=== PATIENT | female | born 1945 | race Caucasian/White ===

== ENCOUNTER 2016-11-13 07:25 | Inpatient (IN) ==
--- NOTE | 2016-11-12 20:25 | Discharge Summary ---
<Nica Whyte - Last Filed: 11/12/16 20:23> Date of Encounter: 11/12/16 - Discharge Diagnosis (1) Rotator cuff tear arthropathy of right shoulder Priority: Primary Status: Acute (2) DMII (diabetes mellitus, type 2) Priority: Secondary Status: Chronic Qualifiers: Diabetes mellitus complication status: with unspecified complications Diabetes mellitus usp insulin use: unspecified terminal press operator insulin use status Qualified Code(s): E11.8 - Type 2 diabetes mellitus with unspecified complications (3) HTN (hypertension) Priority: Secondary Status: Chronic Qualifiers: Hypertension type: essential hypertension Qualified Code(s): I10 - Essential (primary) hypertension (4) Hypothyroid Priority: Secondary Status: Chronic Qualifiers: Hypothyroidism type: unspecified Qualified Code(s): E03.9 - Hypothyroidism , unspecified - Discharge Medications Home Medications: Meclizine [Antivert] 25 mg PO TID #20 tablet 11/10/16 [Rx] OxyCODONE Immed Rel [Roxicodone 5 MG] 5 - 10 mg PO Q6HR PRN #40 tablet 11/12/16 [Rx] Aspirin 81 mg PO HS 11/13/16 [History] Calcium Carbonate/Vitamin D3 [Calcium 1,000 + D3 Caplet] 1 each PO HS 11/13/16 [ History] Cephalexin [Keflex] 500 mg PO QID 11/13/16 [History] Furosemide [Lasix] 20 mg PO DAILY 11/13/16 [History] Gabapentin 1,200 mg PO BID 11/13/16 [History] Levothyroxine Sodium 100 mcg PO DAILY 11/13/16 [History] Lisinopril 40 mg PO HS 11/13/16 [History] Metformin HCl 500 mg PO BID 11/13/16 [History] Multivitamin [One Daily Multivitamin] 1 each PO HS 11/13/16 [History] Omeprazole [PriLOSEC] 40 mg PO DAILY 11/13/16 [History] Sertraline [Zoloft] 50 mg PO DAILY 11/13/16 [History] Simvastatin 80 mg PO DAILY 11/13/16 [History] Zolpidem [Ambien] 10 mg PO HS PRN 11/13/16 [History] Allergies/Adverse Reactions: Allergies Sulfa (Sulfonamide Antibiotics) Adverse Reaction (Unknown, Verified 11/13/16 08: 42) See Comments patient states unknown childhood reaction Primary care physician: Zaki Brown, - Patient Status Disposition: Home, Self-Care Condition: Good - Discharge Instructions Follow Up With: Zaki Brown DO [Primary Care Provider] - 02/19/17 8:00 am Richard Quach MD [Partnered Physician] - 11/21/16 10:45 am - Hospital Course Hospital course: Ms. Goins is a 71 year old female - Time Spent with Patient Total time spent providing and/or coordinating discharge services: <Odin Andres - Last Filed: 11/14/16 06:24> Date of Encounter: 11/14/16 Time of Encounter: 06:23 - Discharge Diagnosis (1) Rotator cuff tear arthropathy of right shoulder Priority: Primary Status: Acute (2) DMII (diabetes mellitus, type 2) Priority: Secondary Status: Chronic Qualifiers: Diabetes mellitus complication status: with unspecified complications Diabetes mellitus usp insulin use: unspecified terminal press operator insulin use status Qualified Code(s): E11.8 - Type 2 diabetes mellitus with unspecified complications (3) HTN (hypertension) Priority: Secondary Status: Chronic Qualifiers: Hypertension type: essential hypertension Qualified Code(s): I10 - Essential (primary) hypertension (4) Hypothyroid Priority: Secondary Status: Chronic Qualifiers: Hypothyroidism type: unspecified Qualified Code(s): E03.9 - Hypothyroidism , unspecified (5) 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 Goins is a 71 year old female The patient had an uneventful postoperative course. They received antibiotics and physical therapy and were discharged in stable condition. There will follow -up in the office in 2 weeks. - Time Spent with Patient Total time spent providing and/or coordinating discharge services:
[2016-11-13] MEDS ORDERED: CeFAZolin Pre 2,000 MG/100 ML 2,000 MG/100 ML BAG IVPB ONE (07:54)
[2016-11-13] MEDS ORDERED: Albuterol 2.5 MG/3 ML NEBULIZER IH ONE (07:54)
[2016-11-13] MEDS ORDERED: Ringers Solution, Lactated 500 ML IVC SCH (08:00)
--- NOTE | 2016-11-13 08:11 | History & Physical Report ---
Date of Encounter: 11/13/16 Time of Encounter: 08:11 24 Hour HP Update - Instructions Instructions: If the History and Physical is less than 30 days old and was completed prior to A.M. admission and or procedure and has NOT been updated on calendar day of procedure please complete this update prior to performing procedure. - Update Patient reports changes in Medical Condition: No Changes in assessment/condition: No Changes in Medication: No Preop tests/diagnostics Reviewed: Yes Surgery Remains Indicated: Yes Consent for Planned Operative Procedure(s) Verified: Yes - Pre-Operative Checklist Preoperative Checklist Indicated: No Prophylactic Antibiotic Ordered: Yes Is VTE Prophylaxis Indicated?: Yes
[2016-11-13] MEDS ORDERED: Lidocaine -MPF 4% 5 ML AMPUL ONE (08:25)
[2016-11-13] MEDS ORDERED: *HR* FentaNYL (PF) 100 MCG/2 ML VIAL ONE (08:25)
[2016-11-13] MEDS ORDERED: *HR* Propofol 200 MG/20 ML VIAL IVP ONE (08:25)
[2016-11-13] MEDS ORDERED: Dexamethasone 4 MG/ML VIAL ONE (08:25)
[2016-11-13] MEDS ORDERED: Lidocaine -MPF 2% 2 ML VIAL ONE (08:25)
[2016-11-13] MEDS ORDERED: *HR* Succinylcholine 200 MG/10 ML VIAL IVP ONE (08:25)
[2016-11-13] MEDS ORDERED: Ondansetron 4 MG/2 ML VIAL ONE (08:25)
[2016-11-13] MEDS ORDERED: *HR* Midazolam HCl 2 MG/2 ML VIAL ONE (08:25)
[2016-11-13] MEDS ORDERED: *HR* Labetalol 100 MG/20 ML MDV IVP PRN (08:29)
[2016-11-13] MEDS ORDERED: *HR* Promethazine 25 MG/ML VIAL IVP PRN (08:29)
[2016-11-13] MEDS ORDERED: *HR* HYDROmorphone (PF) 1 MG/ML SYRINGE IVP PRN ×2 (08:29→11:33)
--- NOTE | 2016-11-13 09:02 | Anesthesia Evaluation PreOp ---
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: Other (Demyelinating Disease of Brain...visual disturbance) Other Medical History: Diabetes Type II (Well Controlled), Thyroid Anesthesia History: No Prior Anesthetic Complications : No Alcohol Use: none Drug use: none Medications and Allergies Meclizine [Antivert] 25 mg PO TID #20 tablet 11/10/16 [Rx] OxyCODONE Immed Rel [Roxicodone 5 MG] 5 - 10 mg PO Q6HR PRN #40 tablet 11/12/16 [Rx] Aspirin 81 mg PO HS 11/13/16 [History] Calcium Carbonate/Vitamin D3 [Calcium 1,000 + D3 Caplet] 1 each PO HS 11/13/16 [ History] Cephalexin [Keflex] 500 mg PO QID 11/13/16 [History] Furosemide [Lasix] 20 mg PO DAILY 11/13/16 [History] Gabapentin [Gabapentin] 1,200 mg PO BID 11/13/16 [History] Levothyroxine Sodium 100 mcg PO DAILY 11/13/16 [History] Lisinopril [Lisinopril] 40 mg PO HS 11/13/16 [History] Metformin HCl [Metformin HCl] 500 mg PO BID 11/13/16 [History] Multivitamin [One Daily Multivitamin] 1 each PO HS 11/13/16 [History] Omeprazole [PriLOSEC] 40 mg PO DAILY 11/13/16 [History] Sertraline [Zoloft] 50 mg PO DAILY 11/13/16 [History] Simvastatin [Simvastatin] 80 mg PO DAILY 11/13/16 [History] Zolpidem [Ambien] 10 mg PO HS PRN 11/13/16 [History] Allergies Sulfa (Sulfonamide Antibiotics) Adverse Reaction (Unknown, Verified 11/13/16 08: 42) See Comments patient states unknown childhood reaction - Meds/Allergy Pre-op Review Medications Reviewed: Yes Allergies Reviewed: Yes Beta Blockers on Current Med List: No Anesthesia Results - Imaging EKG: report reviewed (SR occ PVC) Anesthesia Exam Height: 5'2 Weight: 164 lbs NPO (# of Hours): MN - HEENT Pupil (Motor): Pupils equal, EOMI Mallampati: III Teeth: Normal Oral Opening: Less than or equal to 3 - DIGITAL MARKETING APPRENTICE LOC: Oriented DIGITAL MARKETING APPRENTICE Motor: Normal RUE, Normal LUE, Normal RLE, Normal LLE, Normal Face DIGITAL MARKETING APPRENTICE Sensory: Normal: RUE, LUE, RLE, LLE, Face - Cardiac Rhythm: Regular Murmur: None JVD: No Carotid Bruit: No - Pulmonary Breath Sounds: bilateral Clear Respiratory Effort: Symmetrical Anesthesia Assess/Plan ASA Score: 3 (HTN DM Demyelinating Disease of Brain) Anesthetic Plan: General, Regional Monitoring Plan: Standard Monitors Recovery Plan: PACU (Discussed GA and RA, agrees to proceed)
[2016-11-13] MEDS ORDERED: Bupivacaine/Clonidine Syringe 1 EACH SYRINGE ONE (09:16)
--- NOTE | 2016-11-13 09:33 | Anesthesia Procedures ---
Date of Encounter: 11/13/16 Time of Encounter: 09:20 Procedures: Anesthesia - Nerve Block Procedure Date: 11/13/16 Time: 09:20 Allergies/Adv Reactions: sulfa Pre-op Diagnosis: RIGHT SHOULDER ARTHRITIS Surgical Procedure: RIGHT TOTAL SHOULDER Checklist: Correct Patient Identifier, Correct procedure, History checked Correct side: Right Blood Thinner: No Monitor Applied: BP, Pulse Oximetry Supplemental Oxygen via Nasal Cannula (L/min): 2 Sedation: Versed (mg): 2 Sedation: Fentanyl (mcg): 100 Indication: Post Op Analgesia Pre-op Neuro Deficits: No Block Type: Supraclavicular (SUPERIFICAL CERVICAL PLEXUS + INTERCOSTAL BRACHIAL ) Catheter placed: No Sterile Technique: Yes Ultrasound used: Yes Anatomy identified: Yes Visual spread of Local: Yes Neuro Stimulation: Yes Nerve Stimulator Range: 0.2 - 0.4 mA Blood on Needle Aspiration: No Smooth Injection of Local: Yes Pain with Injection of Local: No Prep: Chlorhexadine Needle: 22 x 50 mm Stimuplex Local: 0.25% Bupivicaine w/Clonidine 20 mcg/cc Volume (cc): 40 Number of Attempts: 1 Vitals: Vital Signs - Last 8 Hours Temp Pulse Resp BP Pulse Ox 11/13/16 09:28 72 17 118/95 92 L 11/13/16 09:15 67 16 137/67 92 L 11/13/16 08:39 18 129/71 97 11/13/16 08:13 98.0 F 71 18 129/71 97 11/13/16 07:49 98.0 F 71 18 129/71 97 Intake and Output 11/12/16 11/13/16 11/13/16 23:59 07:59 15:59 Other: Weight 74.389 kg 74.389 kg Blood Glucose* 164 164 Patient Weight 11/13/16 23:59 Weight 74.389 kg Comments: PER DR. REDD REQUEST
--- NOTE | 2016-11-13 10:29 | Orthopedic Operative Note ---
Date of procedure: 11/13/16 Pre-op diagnosis: Right cuff tear arthropathy Post-op diagnosis: same Procedure: Procedure: Right Total Shoulder Replacment Reverse, biceps tenodesis Estimated blood loss: 100 cc Hardware:Arthrex medium glenoid baseplate, 2 4.5 screws. 1 6.5 screw, 39 noncentral glenosphere, 6 humeral stem, poly insert 3 Exam Under anesthesia: Full motion and no instability Procedural Notes: Grade 3 3 arthritic changes humeral head rotator cuff tear Operative procedure: The patient was brought to the operating room and placed on the operating room table. After general anesthesia was administered the operative shoulder was examined. Findings were noted. The patient was placed in the modified beachchair position. All pressure points were padded appropriately. And the head was stabilized in the neutral position. The operative extremity was prepped and draped in the sterile surgical fashion. The patient received IV antibiotics prior to skin incision. A standard deltopectoral approach was made to the operative shoulder. Incision was made to the skin and subcutaneous tissue,hemo stasis was obtained with Bovie cautery. Using careful blunt dissection the cephalic vein was identified and mobilized medially. The deltopectoral interval was developed and the clavipectoral fascia was incised. The subscap was released off the lesser tuberosity and tagged with #2 FiberWire suture. The humerus was dislocated patient noted to have tear supraspinatus tendon and grade 3 arthritic changes humeral head. The humeral cut was made along the anatomic neck. Anterior and posterior Bankart retractors were placed to expose the glenoid. The glenoid guide was seated and the centering hole was made. It was reamed with the appropriate reamer. The medium baseplate was seated and secured with (2) 4.5 screws and one 6.5 screw. The baseplate was irrigated and dried and the 39 central Glenosphere was seated and secured with the Cardona taper. The Cardona taper was tested and found to be secure the humerus was redislocated and prepared with the diaphyseal reamers, followed by a broaching process up to the appropriate size 6 in the patient's anatomic version. The metaphyseal reamer was then utilized. Trial reduction found the shoulder to be relocatable. Trial components were removed and drill holes were placed in the lesser tuberosity. They were filled with #5 FiberWire suture incorporating the biceps tendon. These sutures were used for a subscap repair and a biceps tenodesis. The appropriate 6 stem was impacted in place in the patient's anatomic version. Trial reduction found the shoulder to be relocatable and stable with the appropriate 3 Cecy. Trial component was removed and the real 3 Cecy was seated and secured the shoulder was reduced. The shoulder had excellent motion and excellent stability and no evidence of dislocation. The deep tissue was irrigated with pulse irrigation. The subscap was repaired incorporating the biceps tendon for biceps tenodesis and a subscap repair. The deltopectoral interval was closed with a running #1 PDS suture, subcutaneous tissue was irrigated and closed with 0 PDS suture, the skin was closed with Dermabond. The patient was placed in a sterile dressing, abduction brace and extubated. The patient was then transferred to the recovery room in stable condition. Anesthesia: DONNAA Surgeon: Odin Andres Condition: stable Disposition: PACU
--- NOTE | 2016-11-13 11:19 | Anesthesia Evaluation Post Op ---
Date of Encounter: 11/13/16 Time of Encounter: 11:19 - Vital Signs Vital Signs: Vital Signs/O2 Sat, Most Current Temp Pulse Resp BP Pulse Ox 97.9 F 66 16 120/57 97 11/13/16 11:15 11/13/16 11:15 11/13/16 11:15 11/13/16 11:15 11/13/16 11:15 - Lungs Lungs: Clear Ascult./Percussion - Airway Airway: Non-obstructed - Cardiovascular Regular Rate - Mental Status Mental Status: Alert & Oriented, Answers Appropriately - Pain Pain Scale: 0 Pain Scale used: Numeric (1 - 10) - Nausea Vomiting Nausea Vomiting: Not Present - Hydration Hydration: NPO, Has not voided - Discharge PostOp Status: Transfer Patient to floor
[2016-11-13 11:20] LABS: Hematocrit 36.5 % (35.3-44.9); Hemoglobin 11.8 g/dL (11.5-15.4)
[2016-11-13] MEDS ORDERED: Temazepam 15 MG CAPSULE PO PRN (11:33)
[2016-11-13] MEDS ORDERED: Ondansetron 4 MG/2 ML VIAL IVP PRN (11:33)
[2016-11-13] MEDS ORDERED: MOM Conc 10 ML UD.LIQ PO PRN (11:33)
[2016-11-13] MEDS ORDERED: Naloxone 0.4 MG/ML INJ IVP PRN (11:33)
[2016-11-13] MEDS ORDERED: *HR* OxyCODONE Immed Rel 5 MG TABLET PO PRN ×2 (11:33)
[2016-11-13] MEDS ORDERED: Ringers Solution, Lactated 1,000 ML IVC SCH (11:33)
[2016-11-13] MEDS ORDERED: Acetaminophen 325 MG TABLET PO PRN (11:33)
[2016-11-13] MEDS ORDERED: Albuterol Neb 1.25 MG/3 ML VIAL IH ONE (11:33)
[2016-11-13] MEDS ORDERED: *HR* Dextrose 50 % in Water (Syg) 50 ML SYRINGE IVP PRN (11:33)
[2016-11-13] MEDS ORDERED: Sennosides 8.6 MG TABLET PO PRN (11:33)
[2016-11-13] MEDS ORDERED: D5% in Water 1,000 ML IV PRN (11:33)
[2016-11-13] MEDS ORDERED: Dextrose Gel 15 GM PO PRN ×2 (11:33)
[2016-11-13] MEDS: Insulin LISPRO 300 UNITS/3 ML VIAL SQ SCH ×2 (12:24→17:57)
[2016-11-13] MEDS: *HR* Enoxaparin 30 MG/0.3 ML SYRINGE SQ SCH (17:57)
[2016-11-13] MEDS: ceFAZolin 2,000 MG in D5% in Water 100 ML IVPB SCH (17:57)
[2016-11-13] MEDS ORDERED: *HR* Enoxaparin 30 MG/0.3 ML SYRINGE SQ SCH (18:00)
[2016-11-13] MEDS: *HR* Metformin 500 MG TABLET PO SCH (20:50)
[2016-11-13] MEDS: Gabapentin 400 MG CAPSULE PO SCH (20:50)
[2016-11-13] MEDS ORDERED: Multivit/Ca/Min/Fe/FA 1 TAB TABLET PO SCH (21:00)
[2016-11-13] MEDS ORDERED: Insulin LISPRO 300 UNITS/3 ML VIAL SQ SCH (21:00)
[2016-11-13] MEDS ORDERED: Cholecalciferol (D-3) 1,000 UNIT TABLET PO SCH (21:00)
[2016-11-13] MEDS ORDERED: Aspirin 81 MG TAB.CHEW PO SCH (21:00)
[2016-11-13] MEDS ORDERED: Lisinopril 20 MG TABLET PO SCH (21:00)
[2016-11-14] MEDS: ceFAZolin 2,000 MG in D5% in Water 100 ML IVPB SCH (03:32)
[2016-11-14] MEDS: *HR* Enoxaparin 30 MG/0.3 ML SYRINGE SQ SCH (06:16)
[2016-11-14 06:18] LABS: Hematocrit 33.2 % (35.3-44.9); Hemoglobin 10.8 g/dL (11.5-15.4)
--- NOTE | 2016-11-14 06:25 | Orthopedics Progress Note ---
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 Qualified Code(s): E11.8 - Type 2 diabetes mellitus with unspecified complications (3) HTN (hypertension) Current Visit: Yes Status: Chronic Qualifiers: Hypertension type: essential hypertension Qualified Code(s): I10 - Essential (primary) hypertension (4) Hypothyroid Current Visit: Yes Status: Chronic Qualifiers: Hypothyroidism type: unspecified Qualified Code(s): E03.9 - Hypothyroidism , unspecified (5) 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 Afebrile vital signs stable. Operative extremity: Neurovascularly intact Dressing clean dry and intact Calves nontender Assessment and plan: Continue with postoperative care Discharge today Objective Vital signs: Vital Signs Temp Pulse Resp BP Pulse Ox 11/14/16 03:35 98 F 62 14 95/60 94 L 11/13/16 23:49 98.6 F 58 13 90/50 93 L 11/13/16 18:56 98 F 71 14 119/62 96 11/13/16 15:12 98.0 F 69 15 106/55 94 L 11/13/16 14:16 97.8 F 73 14 120/68 98 11/13/16 12:56 16 95 11/13/16 12:32 97.8 F 68 16 120/69 95 11/13/16 12:10 97.6 F 68 15 130/73 98 11/13/16 11:32 97.6 F 64 16 145/80 95 11/13/16 11:15 97.9 F 66 16 120/57 97 11/13/16 11:05 68 14 131/61 94 L 11/13/16 10:55 69 14 128/68 92 L 11/13/16 10:50 70 14 133/65 94 L 11/13/16 10:45 97.3 F L 77 12 133/78 95 11/13/16 09:38 70 16 101/55 95 11/13/16 09:28 72 17 118/95 92 L 11/13/16 09:15 67 16 137/67 92 L 11/13/16 08:39 18 129/71 97 11/13/16 08:13 98.0 F 71 18 129/71 97 11/13/16 07:49 98.0 F 71 18 129/71 97 Intake and Output 11/13/16 11/13/16 11/14/16 15:59 23:59 07:59 Intake Total 100 / 100 100 / 100 Output Total 400 / 400 Balance -300 / -300 100 / 100 Intake: IV Fluids 100 / 100 100 / 100 Ancef 2,000 MG In 100 / 100 Dextrose 5% 100 ML @ 200 mls/hr IVPB Q8H CINDY Rx#: [id number] Ancef Premix 2,000 MG/100 100 / 100 ML 2,000 mg In 100 ml @ 200 mls/hr IVPB PREOP ONE Rx#:[id number] Oral 0 / 0 Output: Urine 300 / 300 Estimated Blood Loss 100 / 100 Other: # Voids 1 1 Weight 74.389 kg Blood Glucose* 177 306 - Labs CBC & BMP: 11/14/16 05:29 Labs: Abnormal lab results Hgb 10.8 g/dL (11.5-15.4) L 11/14/16 05:29 Hct 33.2 % (35.3-44.9) L 11/14/16 05:29 POC Glucose 155 (58-89) H 11/13/16 10:51 - VTE Documentation of Mechanical Device: Venous foot pump, device Consult Discharge Plan - Plan Referrals: Zaki Brown DO [Primary Care Provider] - 02/19/17 8:00 am Richard Quach MD [Partnered Physician] - 11/21/16 10:45 am
[2016-11-14 07:16] VITALS: BP 103/59
[2016-11-14] MEDS: Insulin LISPRO 300 UNITS/3 ML VIAL SQ SCH (08:46)
[2016-11-14] MEDS: Gabapentin 400 MG CAPSULE PO SCH (08:47)
[2016-11-14] MEDS: *HR* Metformin 500 MG TABLET PO SCH (08:48)
[2016-11-14] MEDS ORDERED: Furosemide 20 MG TABLET PO SCH (09:00)
== END 2016-11-14 11:33 | disposition home or self-care (01) | DRG 483 ==
LOC: SAMDAY 07:25 → 3NENU 11:22
PROVIDERS: ADMIT Orthopaedic Surgery; ATTEND Orthopaedic Surgery

== ENCOUNTER 2017-04-17 15:00 | Inpatient (IN) ==
[2017-04-17 16:24] LABS: Basophils # 0.1 K/mcL (0.0-0.2); Basophils % 0.8 %; Eosinophils # 0.3 K/mcL (0.0-0.6); Eosinophils % 1.9 %; Hematocrit 46.7 % (35.3-44.9); Hemoglobin 15.6 g/dL (11.5-15.4); Immature Granulocytes % 0.4 % (0-4); Lymphocytes # 5.1 K/mcL (0.6-4.6); Lymphocytes % 32.4 %; Mean Corpuscular HGB Conc 33.4 g/dL (31.6-35.5); Mean Corpuscular Hemoglobin 30.6 pg (28.0-33.3); Mean Corpuscular Volume 91.6 fL (83.0-100.0); Mean Platelet Volume 10.6 fL (9.4-12.4); Monocytes # 1.1 K/mcL (0.0-1.3); Platelet Count 313 K/mcL (140-400); Red Cell Distribution Width 13.4 % (11.5-14.5); Segmented Neutrophils % 57.5 %
[2017-04-17 16:36] LABS: Albumin 4.2 g/dL (3.5-5.0); Albumin/Globulin Ratio 1.1 (1.1-2.2); Bilirubin,Total 0.5 mg/dL (0.2-1.2); Calcium 10.5 mg/dL (8.6-10.8); Globulin 3.9 g/dL (2.4-3.5); Potassium 5.4 mEq/L (3.5-4.5); Total Protein 8.1 g/dL (6.0-8.3)
[2017-04-17] MEDS ORDERED: 0.9 % Sodium Chloride 1,000 ML IVC ONE (17:40)
--- NOTE | 2017-04-17 17:40 | Emergency Department Note ---
Addendum entered and electronically signed by Juventino Gaona DO 04/17/17 19:58 : Troponin came back as elevated. Gave aspirin. EKG is NSR. No CP. EKG is normal. Will need trended. Original Note: Disposition Clinical Impression: Nausea vomiting and diarrhea, Hyperkalemia Acute renal failure Qualifiers: Acute renal failure type: unspecified Qualified Code(s): N17.9 - Acute kidney failure, unspecified Disposition: Admitted As Inpatient Condition: Fair General Adult HPI - General Chief complaint: ED Recheck/Abnormal Lab/Rx Stated complaint: PCP sent me Labs Time Seen by Provider: 04/17/17 17:11 Source: patient Mode of arrival: ambulatory Limitations: no limitations Nursing Notes Reviewed: Yes Vital Signs Reviewed: Yes - History of Present Illness HPI Narrative: 71-year-old female who reports 1 week of nausea vomiting and diarrhea. She reports that she vomits proximally 10 times a day and has a few episodes of diarrhea daily. She has not been able to eat or drink very much due to this. She does have some associated abdominal pain. No fever. The abdominal pain does not seem to be worsening but has remained constant. She went to see her primary care physician yesterday who ordered some basic lab work and called her today to come to the emergency department due to the lab results. She reports she did get a prescription for Zofran from her primary care physician and that did improve her nausea some. She does have a history of diabetes, hypertension , hypothyroidism. She has had a cholecystectomy and a tubal. She does take Lasix 20 daily for large from the swelling. She also takes lisinopril. In addition she takes Synthroid, Neurontin, Zoloft, Lipitor, Ambien, [place], aspirin , omeprazole. She reports that her vomitus whenever she has attempted to eat and sometimes it is bilious. She reports location of her abdominal pain is generalized. Radiation: non-radiation Pain Severity: severe Pain Scale: 8 Consistency: constant Improves with: nothing, movement Associated symptoms: Reports: denies other symptoms - Related Data Home Medications Medication Instructions Recorded Confirmed Aspirin 81 mg PO HS 11/13/16 04/17/17 Calcium Carbonate/Vitamin D3 1 each PO HS 11/13/16 04/17/17 [Calcium 1,000 + D3 Caplet] Furosemide [Lasix] 20 mg PO DAILY 11/13/16 04/17/17 Gabapentin 1,200 mg PO BID 11/13/16 04/17/17 Levothyroxine Sodium 100 mcg PO QAM 11/13/16 04/17/17 Lisinopril 40 mg PO HS 11/13/16 04/17/17 Metformin HCl 500 mg PO BID 11/13/16 04/17/17 Multivitamin [One Daily 1 each PO HS 11/13/16 04/17/17 Multivitamin] Omeprazole [PriLOSEC] 40 mg PO DAILY 11/13/16 04/17/17 Sertraline [Zoloft] 50 mg PO DAILY 11/13/16 04/17/17 Zolpidem [Ambien] 10 mg PO HS PRN 11/13/16 04/17/17 Atorvastatin Calcium [Lipitor] 20 mg PO HS 04/17/17 04/17/17 Ondansetron [Zofran] 8 mg PO TID PRN 04/17/17 04/17/17 Allergies Allergy/AdvReac Type Severity Reaction Status Date / Time ayana flavor Allergy Swelling Verified 04/17/17 15:40 of Lip/Tongue/Throat Sulfa (Sulfonamide AdvReac Unknown See Verified 11/13/16 08:42 Antibiotics) Comments All systems ED: reviewed and negative except as stated. Constitutional: Denies: fever Eyes: Denies: vision change ENT ED: Denies: throat pain Cardiovascular: Denies: chest pain Respiratory: Denies: cough Gastrointestinal: Reports: abdominal pain, nausea, vomiting, diarrhea. Denies: constipation, hematemesis, hematochezia Genitourinary: Denies: dysuria Musculoskeletal: Denies: back pain Integumentary: Denies: rash Neurological: Denies: headache Endocrine: Reports: fatigue Past Medical History - Past Medical History Medical history: Reports: diabetes, hyperlipidemia, hypertension, renal disease , thyroid disease, TIA Psychiatric history: Reports: no psych history - Social History Smoking Status: Current every day smoker Smokeless Tobacco Status: No Alcohol use: Reports: none Drug use: Reports: none Physical Exam - General Limitations: no limitations General appearance: alert - Head Head exam: atraumatic - Eye Eye exam: Present: normal appearance, PERRL, EOMI - ENT ENT exam: normal exam - Neck Neck exam: Present: normal inspection - Respiratory Respiratory exam: Present: normal lung sounds bilaterally. Absent: respiratory distress - Cardiovascular Cardiovascular exam: Present: regular rate, normal rhythm - Abdominal Exam Abdominal exam: Present: soft, tenderness (Generalized. She also does have pain in the right lower quadrant. No guarding or rebound) - Extremities Exam Extremities exam: Present: normal inspection - Back Exam Back exam: Present: normal inspection - Neurological Exam Neurological exam: Present: alert, oriented X3 - Skin Skin exam: Present: warm, dry Course Course Narrative: In reviewing her lab work she has an elevated creatinine and elevated potassium. Lab work was redrawn here and her creatinine has increased by 1. she is not currently complaining of any chest pain or shortness of breath. She has an elevated white blood cell count and elevated hemoglobin. This is likely secondary to hemoconcentration. We will start with a 2 L fluid bolus and starting maintenance fluids. We will also treat her nausea and he was CT scan of the belly. EKG shows normal sinus rhythm without peaks T waves or ST depression Accepted by chin Vital Signs Temperature 98.8 F 04/17/17 15:40 Pulse Rate 93 04/17/17 15:40 Respiratory Rate 20 04/17/17 15:40 Blood Pressure 121/73 04/17/17 15:40 O2 Sat by Pulse Oximetry 96 04/17/17 15:40 Temperature 98.8 F 04/17/17 15:40 Pulse Rate 83 04/17/17 19:45 Respiratory Rate 18 04/17/17 20:26 Blood Pressure 159/72 04/17/17 20:26 O2 Sat by Pulse Oximetry 96 04/17/17 19:45 Oxygen Delivery Oxygen Delivery Room Air Medical Decision Making - Medical Records Medical records reviewed: Yes I reviewed the patient's medical records. - Lab Data Lab results reviewed: Yes I reviewed the patient's lab results. Result diagrams: 04/17/17 16:10 04/17/17 16:10 Lab Results 04/17/17 04/17/17 04/17/17 Range/Units 16:10 16:10 16:10 WBC 15.7 H (4.3-11.1) K/mcL RBC 5.10 H (3.82-4.97) M/mcL Hgb 15.6 H (11.5-15.4) g/dL Hct 46.7 H (35.3-44.9) % MCV 91.6 (83.0-100.0) fL MCH 30.6 (28.0-33.3) pg MCHC 33.4 (31.6-35.5) g/dL RDW 13.4 (11.5-14.5) % Plt Count 313 (140-400) K/mcL MPV 10.6 (9.4-12.4) fL Immature Gran % 0.4 (0-4) % Seg Neutrophils % 57.5 % Lymphocytes % 32.4 % Monocytes % 7.0 % Eosinophils % 1.9 % Basophils % 0.8 % Neutrophils # 9.0 H (1.6-8.9) K/mcL Lymphocytes # 5.1 H (0.6-4.6) K/mcL Monocytes # 1.1 (0.0-1.3) K/mcL Eosinophils # 0.3 (0.0-0.6) K/mcL Basophils # 0.1 (0.0-0.2) K/mcL Sodium 136 (136-145) mEq/L Potassium 5.4 H (3.5-4.5) mEq/L Chloride 105 (98-109) mEq/L Carbon Dioxide 19 (19-29) mEq/L BUN 30 H (7-20) mg/dL Creatinine 3.27 H (0.57-1.11) mg/dL Est GFR ( Amer) 17 L (> 60) Est GFR (Non-Af Amer) 14 L (> 60) BUN/Creatinine Ratio 9 (6-26) Glucose 121 H (70-99) mg/dL Calculated Osmolality 289 (280-300) Calcium 10.5 (8.6-10.8) mg/dL Total Bilirubin 0.5 (0.2-1.2) mg/dL AST 29 (5-34) Units/L ALT 21 (0-55) Units/L Alkaline Phosphatase 105 (38-126) Units/L Troponin I 0.14 H* (0-0.03) ng/mL Serum Total Protein 8.1 (6.0-8.3) g/dL Albumin 4.2 (3.5-5.0) g/dL Globulin 3.9 H (2.4-3.5) g/dL Albumin/Globulin Ratio 1.1 (1.1-2.2) Amylase 89 (25-125) Units/L Lipase 89 H (8-78) Units/L Urine Color (Yellow) Urine Clarity (Clear) Urine pH (5.0-8.0) pH Units Ur Specific [place] (1.010-1.025) Urine Protein (Neg-Trace) mg/dL Urine Glucose (UA) (Normal) mg/dL Urine Ketones (Negative) mg/dL Urine Blood (Negative) Urine Nitrite (Negative) Urine Bilirubin (Negative) Urine Urobilinogen (Normal) mg/dL Ur Leukocyte Esterase (Negative) Urine Microscopic RBC (0-3) per hpf Urine Microscopic WBC (0-3) per hpf Ur Squamous Epith Cells (None-Few) per lpf Urine Bacteria (None-Few) per hpf Hyaline Casts (None-Few) per lpf Ur Culture Indicated? (NO) 04/17/17 Range/Units 19:47 WBC (4.3-11.1) K/mcL RBC (3.82-4.97) M/mcL Hgb (11.5-15.4) g/dL Hct (35.3-44.9) % MCV (83.0-100.0) fL MCH (28.0-33.3) pg MCHC (31.6-35.5) g/dL RDW (11.5-14.5) % Plt Count (140-400) K/mcL MPV (9.4-12.4) fL Immature Gran % (0-4) % Seg Neutrophils % % Lymphocytes % % Monocytes % % Eosinophils % % Basophils % % Neutrophils # (1.6-8.9) K/mcL Lymphocytes # (0.6-4.6) K/mcL Monocytes # (0.0-1.3) K/mcL Eosinophils # (0.0-0.6) K/mcL Basophils # (0.0-0.2) K/mcL Sodium (136-145) mEq/L Potassium (3.5-4.5) mEq/L Chloride (98-109) mEq/L Carbon Dioxide (19-29) mEq/L BUN (7-20) mg/dL Creatinine (0.57-1.11) mg/dL Est GFR ( Amer) (> 60) Est GFR (Non-Af Amer) (> 60) BUN/Creatinine Ratio (6-26) Glucose (70-99) mg/dL Calculated Osmolality (280-300) Calcium (8.6-10.8) mg/dL Total Bilirubin (0.2-1.2) mg/dL AST (5-34) Units/L ALT (0-55) Units/L Alkaline Phosphatase (38-126) Units/L Troponin I (0-0.03) ng/mL Serum Total Protein (6.0-8.3) g/dL Albumin (3.5-5.0) g/dL Globulin (2.4-3.5) g/dL Albumin/Globulin Ratio (1.1-2.2) Amylase (25-125) Units/L Lipase (8-78) Units/L Urine Color Yellow (Yellow) Urine Clarity Cloudy A (Clear) Urine pH 5.5 (5.0-8.0) pH Units Ur Specific [place] 1.013 (1.010-1.025) Urine Protein 30 H (Neg-Trace) mg/dL Urine Glucose (UA) Normal (Normal) mg/dL Urine Ketones Negative (Negative) mg/dL Urine Blood Negative (Negative) Urine Nitrite Negative (Negative) Urine Bilirubin Negative (Negative) Urine Urobilinogen Normal (Normal) mg/dL Ur Leukocyte Esterase Trace H (Negative) Urine Microscopic RBC 0-3 (0-3) per hpf Urine Microscopic WBC 5-15 H (0-3) per hpf Ur Squamous Epith Cells Many H (None-Few) per lpf Urine Bacteria None Seen (None-Few) per hpf Hyaline Casts Moderate H (None-Few) per lpf Ur Culture Indicated? YES A (NO) - Radiology Data Radiology results reviewed: Yes I reviewed the patient's radiology results. - EKG Data EKG #1 EKG attestation: Yes I reviewed and interpreted this EKG. EKG shows normal: sinus rhythm Rate: normal Rhythm: NSR [place]/QRS: normal Interpretation: no acute changes Attestation Statement - Attestation Attestation: I examined this patient and my medical decision-making was reviewed with the RN CARDIOVASCULAR ICU/PA/Advanced Practice Nurse/Resident Physician. I agree with the documented findings, disposition and treatment plan as described except to the extent set forth below. 8-year-old female presents with concern for acute kidney injury. She does have mild hyperkalemia. Etiology of kidney failure is unclear at this time however CT scan shows a nonobstructing examination. Plan to Mr. IV fluids, will obtain cardiac biomarkers to rule out cardiac event. EKG shows normal sinus rhythm without ST segment changes. Cardiac biomarkers are found to be mildly elevated, I would try and these to further evaluate possible ACS. With effort toxic medications at this time including lisinopril and metformin. Patient will be admitted for evaluation of acute kidney injury.
[2017-04-17] MEDS ORDERED: Ondansetron 4 MG/2 ML VIAL IVP ONE (17:44)
[2017-04-17] MEDS: 0.9 % Sodium Chloride 1,000 ML IVC SCH (18:00)
[2017-04-17] MEDS ORDERED: *HR* Promethazine 25 MG/ML VIAL IM ONE (19:50)
[2017-04-17 19:55] LABS: Bilirubin,Urine Negative (Negative); Blood,Urine Negative (Negative); Clarity,Urine Cloudy (Clear); Color,Urine Yellow (Yellow); Glucose,Urine (UA) Normal (Normal); Ketones,Urine Negative (Negative); Leukocyte Esterase,Urine Trace (Negative); Nitrite,Urine Negative (Negative); PH,Urine 5.5 pH Units (5.0-8.0); Protein,Urine 30 mg/dL (Neg-Trace); Specific Gravity,Urine 1.013 (1.010-1.025); Urobilinogen,Urine Normal (Normal)
[2017-04-17 19:58] LABS: Bacteria,Urine None Seen per hpf (None-Few); Hyaline Casts,Urine Moderate per lpf (None-Few); RBC,Urine 0-3 per hpf (0-3); Squamous Epithelial Cell,Urine Many per lpf (None-Few)
[2017-04-17] MEDS ORDERED: Naloxone 0.4 MG/ML INJ IVP PRN (22:00)
[2017-04-17] MEDS ORDERED: *HR* Promethazine 25 MG/ML VIAL IVP PRN (22:00)
[2017-04-17] MEDS ORDERED: Ondansetron 4 MG/2 ML VIAL IVP PRN (22:00)
[2017-04-17] MEDS ORDERED: D5% in Water 1,000 ML IVC PRN (22:50)
[2017-04-17] MEDS ORDERED: *HR* Dextrose 50 % in Water (Syg) 50 ML SYRINGE IVP PRN (22:50)
[2017-04-17] MEDS ORDERED: Dextrose Gel 15 GM PO PRN ×2 (22:50)
[2017-04-17] MEDS: Pantoprazole 40 MG VIAL IVP SCH (22:53)
[2017-04-17] MEDS: *HR* Heparin 5,000 UNIT/ML VIAL SQ SCH (22:53)
[2017-04-17] MEDS ORDERED: Gabapentin 400 MG CAPSULE PO SCH (23:00)
--- NOTE | 2017-04-17 23:02 | Internal Med History&Physical ---
Date of Encounter: 04/17/17 Time of Encounter: 22:54 Assessment and Plan (1) Acute renal failure Current visit: Yes Status: Acute Creatinine of 3.27 up from baseline of 0.87 previously. Patient's creatinine was 2.39 yesterday for outpatient labs drawn at PCP's office. She reports N/V/ D on and off for last 2 weeks, with poor oral intake. WANDA likely secondary to dehydration. UA showed hyaline casts, not concerning for infection. CT Abd/ pelvis showed no acute finding in abdomen or pelvis, non-obstructing 1mm Left renal stone. Will hold lasix and lisinopril. Avoid NSAIDs. 1L bolus given in ED followed by 0.9NS at 125mL/hr. Retroperitoneal ultrasound ordered. Check chemistry daily. Qualifiers: Acute renal failure type: unspecified Qualified Code(s): N17.9 - Acute kidney failure, unspecified (2) Nausea vomiting and diarrhea Current visit: Yes Status: Acute Patient reports N/V/D on and off for 2 weeks. Poor oral intake. CT abd/pelvis showed no acute finding in abdomen or pelvis. WBC elevated to 15.7, with elevations in H/H looking like hemoconcentration from dehydration. IV fluids 0.9NS at 125mL/hr. Zofran PRN for nausea. Clear liquid diet. Stool GI panel and culture. (3) Elevated troponin Current visit: Yes Status: Acute Initial troponin elevated to 0.14. EKG without ischemic changes and patient denies any current chest pain. She does report occasional "twinge" on left side at rest lasting for less than 1 minute, not consistent with ACS. Repeat troponin trended down to 0.09. Continuous clock maker. Serial troponins for trend. (4) DMII (diabetes mellitus, type 2) Current visit: Yes Status: Chronic Hold Metformin check Hgb A1c Check blood sugars Q6hr Sliding scale correction dose Q6 hr hypoglycemic protocol. Qualifiers: Diabetes mellitus complication status: with unspecified complications Diabetes mellitus [employer] insulin use: without [employer] use Qualified Code( s): E11.8 - Type 2 diabetes mellitus with unspecified complications (5) HTN (hypertension) Current visit: Yes Status: Chronic Holding lisinopril and lasix due to WANDA. Hydralazine 10mg IVP Q6hr PRN for SBP > 160 or DBP > 100. Qualifiers: Hypertension type: essential hypertension Qualified Code(s): I10 - Essential (primary) hypertension (6) Hyperkalemia Current visit: Yes Status: Acute potassium of 5.4. Hydrating with 1L fluid bolus in ED followed by 0.9NS at 125mL/hr. Recheck chemistry in the morning. Continuous clock maker. (7) DVT prophylaxis Current visit: Yes Status: Acute Anti-embolic stockings Heparin 5,000u SQ TID Internal Medicine - H&P: HPI Chief complaint: N/V/D WANDA Admitted From: Emergency Dept Plans for Post Hospital Care: Home History of present illness: Ms. Goins is a 71 year old female with hypertension, type 2 diabetes, hypothyroid, presented to the emergency department today with complaints of nausea vomiting and diarrhea, and acute kidney injury seen on outpatient labs at her PCP yesterday. Patient reports that approximately 2 weeks ago she developed some nausea vomiting and diarrhea that lasted 3-4 days. She reports she felt better and return to work for approximately 3 days when her symptoms returned. She has had consistent nausea vomiting and diarrhea for the last 1 week. She is had poor appetite and has not had much oral intake. She reports she started to take in some water and 7-Up, without much success. She reports occasional lightheadedness. She reports occasional brief left-sided chest pain , which comes on suddenly at rest and lasts. Briefly. She reports occasional shortness of breath. She reports abdominal pain, which is located periumbilical and on her right side. She reports subjective fever, and chills. Evaluation in the emergency department revealed elevated white blood cell count of 15.7, elevated hemoglobin and hematocrit. BUN and creatinine were elevated at 30 and 3.27 respectively, indicating acute kidney injury and off from her baseline of 0.87. Potassium was also elevated at 5.4. Troponin was elevated at 0.14. Patient denies any current chest pain, and EKG showed no ischemic changes. CT of the abdomen and pelvis shows no acute finding in abdomen or pelvis, nonobstructing 1 mm left renal stone. He really was not concerning for infection, but this showed hyaline casts. Patient was given 1 L of fluid bolus and started on maintenance fluids of 0.9 at 125. On exam, patient alert and oriented, in no acute distress. Heart had regular rate and rhythm, lungs are clear bilaterally to auscultation. Abdomen was diffusely tender to palpation. No peripheral edema. Past Med Surg Social Fam HX - Past Medical History Medical history: diabetes, hyperlipidemia, hypertension, renal disease, thyroid disease, TIA Psychiatric history: depression - Past Surgical History Surgical History: cholecystectomy, orthopedic, other (shoulder) - Social History Smoking Status: Current every day smoker Packs per day: 0.5 Smokeless Tobacco Status: No Alcohol use: none Drug use: none - Family History Father Living Status: Hx Family Neurologic Disorders: Yes (aneurysm , stroke) Mother Living Status: Hx Family Respiratory Disorders: Yes (TB) Hx Family Medical Disorders: Yes (DVT) Sister Living Status: Still Living Hx Family Genitourinary Disorders: Yes (CKD) Internal Medicine - H&P: Meds Aspirin 81 mg PO HS 11/13/16 [History] Calcium Carbonate/Vitamin D3 [Calcium 1,000 + D3 Caplet] 1 each PO HS 11/13/16 [ History] Furosemide [Lasix] 20 mg PO DAILY 11/13/16 [History] Gabapentin 1,200 mg PO BID 11/13/16 [History] Levothyroxine Sodium 100 mcg PO QAM 11/13/16 [History] Lisinopril 40 mg PO HS 11/13/16 [History] Metformin HCl 500 mg PO BID 11/13/16 [History] Multivitamin [One Daily Multivitamin] 1 each PO HS 11/13/16 [History] Omeprazole [PriLOSEC] 40 mg PO DAILY 11/13/16 [History] Sertraline [Zoloft] 50 mg PO DAILY 11/13/16 [History] Zolpidem [Ambien] 10 mg PO HS PRN 11/13/16 [History] Atorvastatin Calcium [Lipitor] 20 mg PO HS 04/17/17 [History] Ondansetron [Zofran] 8 mg PO TID PRN 04/17/17 [History] Allergies ayana flavor Allergy (Verified 04/17/17 15:40) Swelling of Lip/Tongue/Throat Sulfa (Sulfonamide Antibiotics) Adverse Reaction (Unknown, Verified 11/13/16 08: 42) See Comments patient states unknown childhood reaction All Systems PM: A 10-system review of systems was performed and is negative for pertinent findings except as documented above in the HPI. - Constitutional Constitutional: anorexia, chills, no fever(s), no night sweats - EENT Eyes: no change in vision, no discharge, no pain, no photophobia Ears: no ear discharge, no ear pain, no tinnitus Nose, mouth and throat: no dysphagia, no nasal discharge, no neck pain, no sore throat - Cardiovascular Cardiovascular ROS IM: chest pain (breif, occasional), dyspnea (occasional), lightheadedness, palpitations, no diaphoresis, no syncope - Respiratory Respiratory: dyspnea, no cough, no wheezing, no excessive phlegm production - Gastrointestinal Gastrointestinal: abdominal pain, diarrhea, nausea, vomiting, no hematemesis, no hematochezia, no melena - Genitourinary Genitourinary: no change in urinary stream, no dysuria, no flank pain, no hematuria - Musculoskeletal Musculoskeletal ROS IM: no numbness, no tingling - Integumentary Integumentary IM: no rash, no unusual bruising - Neurological Neurological ROS: no confusion, no convulsions, no focal weakness, no numbness, no tingling, no tremor(s) - Hematologic/Lymphatic Hematologic/Lymphatic: no easy bruising - Constitutional Vitals: Temp Pulse Resp BP Pulse Ox 97.6 F 81 17 135/81 98 04/17/17 20:40 04/17/17 20:40 04/17/17 20:40 04/17/17 20:40 04/17/17 21:33 General appearance: Present: A&O X 3, pleasant, no acute distress - Head Head exam: Present: atraumatic, normocephalic - Eye Eye exam: Present: PERRL, conjuntiva pink, sclera anicteric Pupils: Present: PERRL - ENT ENT exam: Present: mucous membranes dry - Neck Neck exam general surgery: Present: supple, trachea midline. Absent: lymphadenopathy - Respiratory Respiratory exam: Present: CTAB. Absent: accessory muscle use, rales, rhonchi, wheezes - Cardiovascular Cardiovascular exam: Present: RRR, +S1, +S2. Absent: diastolic murmur, gallop, rubs, systolic murmur - GI/Abdominal GI/Abdominal exam: Present: normal bowel sounds, soft, tenderness, no peritoneal signs. Absent: distended - Extremities Exam Extremities exam: Present: warm, radial pulses palpable and symetrical. Absent : calf tenderness, cyanotic, pedal edema - Neurological Exam Neurological exam: Present: CN II-XII intact, oriented X3, no focal deficits. Absent: facial droop, speech deficit - Skin Skin exam: Present: dry, intact Internal Med - H&P Results - Labs CBC & Chem 7: 04/17/17 16:10 04/17/17 16:10 Labs: All Lab Results (24 Hours) 04/17/17 04/17/17 04/17/17 Range/Units 16:10 16:10 16:10 WBC 15.7 H (4.3-11.1) K/mcL RBC 5.10 H (3.82-4.97) M/mcL Hgb 15.6 H (11.5-15.4) g/dL Hct 46.7 H (35.3-44.9) % MCV 91.6 (83.0-100.0) fL MCH 30.6 (28.0-33.3) pg MCHC 33.4 (31.6-35.5) g/dL RDW 13.4 (11.5-14.5) % Plt Count 313 (140-400) K/mcL MPV 10.6 (9.4-12.4) fL Immature Gran % 0.4 (0-4) % Seg Neutrophils % 57.5 % Lymphocytes % 32.4 % Monocytes % 7.0 % Eosinophils % 1.9 % Basophils % 0.8 % Neutrophils # 9.0 H (1.6-8.9) K/mcL Lymphocytes # 5.1 H (0.6-4.6) K/mcL Monocytes # 1.1 (0.0-1.3) K/mcL Eosinophils # 0.3 (0.0-0.6) K/mcL Basophils # 0.1 (0.0-0.2) K/mcL Sodium 136 (136-145) mEq/L Potassium 5.4 H (3.5-4.5) mEq/L Chloride 105 (98-109) mEq/L Carbon Dioxide 19 (19-29) mEq/L BUN 30 H (7-20) mg/dL Creatinine 3.27 H (0.57-1.11) mg/dL Est GFR ( Amer) 17 L (> 60) Est GFR (Non-Af Amer) 14 L (> 60) BUN/Creatinine Ratio 9 (6-26) Glucose 121 H (70-99) mg/dL POC Glucose (58-89) Calculated Osmolality 289 (280-300) Calcium 10.5 (8.6-10.8) mg/dL Total Bilirubin 0.5 (0.2-1.2) mg/dL AST 29 (5-34) Units/L ALT 21 (0-55) Units/L Alkaline Phosphatase 105 (38-126) Units/L Troponin I 0.14 H* (0-0.03) ng/mL Serum Total Protein 8.1 (6.0-8.3) g/dL Albumin 4.2 (3.5-5.0) g/dL Globulin 3.9 H (2.4-3.5) g/dL Albumin/Globulin Ratio 1.1 (1.1-2.2) Amylase 89 (25-125) Units/L Lipase 89 H (8-78) Units/L Urine Color (Yellow) Urine Clarity (Clear) Urine pH (5.0-8.0) pH Units Ur Specific [place] (1.010-1.025) Urine Protein (Neg-Trace) mg/dL Urine Glucose (UA) (Normal) mg/dL Urine Ketones (Negative) mg/dL Urine Blood (Negative) Urine Nitrite (Negative) Urine Bilirubin (Negative) Urine Urobilinogen (Normal) mg/dL Ur Leukocyte Esterase (Negative) Urine Microscopic RBC (0-3) per hpf Urine Microscopic WBC (0-3) per hpf Ur Squamous Epith Cells (None-Few) per lpf Urine Bacteria (None-Few) per hpf Hyaline Casts (None-Few) per lpf Ur Culture Indicated? (NO) 04/17/17 04/17/17 04/17/17 Range/Units 19:47 21:03 22:15 WBC (4.3-11.1) K/mcL RBC (3.82-4.97) M/mcL Hgb (11.5-15.4) g/dL Hct (35.3-44.9) % MCV (83.0-100.0) fL MCH (28.0-33.3) pg MCHC (31.6-35.5) g/dL RDW (11.5-14.5) % Plt Count (140-400) K/mcL MPV (9.4-12.4) fL Immature Gran % (0-4) % Seg Neutrophils % % Lymphocytes % % Monocytes % % Eosinophils % % Basophils % % Neutrophils # (1.6-8.9) K/mcL Lymphocytes # (0.6-4.6) K/mcL Monocytes # (0.0-1.3) K/mcL Eosinophils # (0.0-0.6) K/mcL Basophils # (0.0-0.2) K/mcL Sodium (136-145) mEq/L Potassium (3.5-4.5) mEq/L Chloride (98-109) mEq/L Carbon Dioxide (19-29) mEq/L BUN (7-20) mg/dL Creatinine (0.57-1.11) mg/dL Est GFR ( Amer) (> 60) Est GFR (Non-Af Amer) (> 60) BUN/Creatinine Ratio (6-26) Glucose (70-99) mg/dL POC Glucose 109 H (58-89) Calculated Osmolality (280-300) Calcium (8.6-10.8) mg/dL Total Bilirubin (0.2-1.2) mg/dL AST (5-34) Units/L ALT (0-55) Units/L Alkaline Phosphatase (38-126) Units/L Troponin I 0.09 H* (0-0.03) ng/mL Serum Total Protein (6.0-8.3) g/dL Albumin (3.5-5.0) g/dL Globulin (2.4-3.5) g/dL Albumin/Globulin Ratio (1.1-2.2) Amylase (25-125) Units/L Lipase (8-78) Units/L Urine Color Yellow (Yellow) Urine Clarity Cloudy A (Clear) Urine pH 5.5 (5.0-8.0) pH Units Ur Specific [place] 1.013 (1.010-1.025) Urine Protein 30 H (Neg-Trace) mg/dL Urine Glucose (UA) Normal (Normal) mg/dL Urine Ketones Negative (Negative) mg/dL Urine Blood Negative (Negative) Urine Nitrite Negative (Negative) Urine Bilirubin Negative (Negative) Urine Urobilinogen Normal (Normal) mg/dL Ur Leukocyte Esterase Trace H (Negative) Urine Microscopic RBC 0-3 (0-3) per hpf Urine Microscopic WBC 5-15 H (0-3) per hpf Ur Squamous Epith Cells Many H (None-Few) per lpf Urine Bacteria None Seen (None-Few) per hpf Hyaline Casts Moderate H (None-Few) per lpf Ur Culture Indicated? YES A (NO) - Diagnostic Studies Chest x-ray Additional comments: Chest X-Ray 04/17/17 15:45 IMPRESSION: No acute cardiac or pulmonary disease. D/ / Dougie Man MD / Dougie Man MD Interpreting Provider: Dougie Man MD CT scan - abdomen Additional comments: Abdomen/Pelvis CT 04/17/17 17:37 IMPRESSION: 1. No acute finding in the abdomen or pelvis to account for patient's abdominal pain. 2. Status post cholecystectomy. 3. Nonobstructing 1 mm left renal stone. D/ / 04/17/2017 18:13:18 Yang Ndiaye MD / mary alice Interpreting Provider: Yang Ndiaye MD
[2017-04-17 23:13] LABS: Hemoglobin A1C 7.6 %
[2017-04-17] MEDS: Gabapentin 300 MG CAPSULE PO SCH (23:24)
[2017-04-18] MEDS ORDERED: Insulin LISPRO 300 UNITS/3 ML VIAL SQ SCH
[2017-04-18] MEDS: 0.9 % Sodium Chloride 1,000 ML IVC SCH ×2 (04:19→09:27)
[2017-04-18 04:45] LABS: Potassium 5.1 mEq/L (3.5-4.5)
[2017-04-18 04:47] LABS: Calcium 8.3 mg/dL (8.6-10.8); Hematocrit 36.1 % (35.3-44.9); Immature Granulocytes % 0.4 % (0-4); Mean Corpuscular HGB Conc 32.7 g/dL (31.6-35.5); Red Cell Distribution Width 13.6 % (11.5-14.5)
[2017-04-18 04:54] LABS: Basophils # 0.1 K/mcL (0.0-0.2); Basophils % 0.6 %; Eosinophils # 0.3 K/mcL (0.0-0.6); Eosinophils % 3.2 %; Hemoglobin 11.8 g/dL (11.5-15.4); Immature Platelets 5.2 % (1.1-6.1); Lymphocytes # 4.3 K/mcL (0.6-4.6); Lymphocytes % 45.7 %; Mean Corpuscular Hemoglobin 30.6 pg (28.0-33.3); Mean Corpuscular Volume 93.8 fL (83.0-100.0); Mean Platelet Volume 10.9 fL (9.4-12.4); Monocytes # 0.6 K/mcL (0.0-1.3); Monocytes % 6.2 %; Neutrophils # 4.1 K/mcL (1.6-8.9); Platelet Count 222 K/mcL (140-400); Red Blood Count 3.85 M/mcL (3.82-4.97); Segmented Neutrophils % 43.9 %
--- NOTE | 2017-04-18 08:07 | Internal Med Progress Note ---
<Farhat Millan - Last Filed: 04/18/17 09:16> Date of Encounter: 04/18/17 Time of Encounter: 08:06 - Assessment and plan (1) Acute renal failure Current Visit: Yes Status: Acute Assessment and plan: Improving. Creatinine of 3.27 today (baseline of 0.87 previously). WANDA likely secondary to dehydration from nausea, vomiting, and diarrhea. UA showed hyaline casts, not concerning for infection. CT Abd/pelvis showed no acute finding in abdomen or pelvis, non-obstructing 1mm Left renal stone. Will hold lasix and lisinopril. Avoid NSAIDs. Continue NS at 125mL/hr. Retroperitoneal ultrasound pending. Qualifiers: Acute renal failure type: unspecified Qualified Code(s): N17.9 - Acute kidney failure, unspecified (2) Nausea vomiting and diarrhea Current Visit: Yes Status: Acute Assessment and plan: Likely gastroenteritis. Continue Zofran when necessary. Patient tolerating clear liquid diet. (3) DMII (diabetes mellitus, type 2) Current Visit: Yes Status: Chronic Assessment and plan: Continue sliding-scale insulin Qualifiers: Diabetes mellitus complication status: with unspecified complications Diabetes mellitus long term acute care registered nurse insulin use: without long term acute care registered nurse use Qualified Code( s): E11.8 - Type 2 diabetes mellitus with unspecified complications (4) HTN (hypertension) Current Visit: Yes Status: Chronic Assessment and plan: Hold Lasix and lisinopril secondary to take WANDA. Continue to monitor Qualifiers: Hypertension type: essential hypertension Qualified Code(s): I10 - Essential (primary) hypertension (5) Hypothyroid Current Visit: No Status: Chronic Assessment and plan: Continue to monitor Qualifiers: Hypothyroidism type: unspecified Qualified Code(s): E03.9 - Hypothyroidism , unspecified (6) Hyperkalemia Current Visit: Yes Status: Acute Assessment and plan: Improved. Likely secondary to vomiting and diarrhea. Hold Lasix. (7) Elevated troponin Current Visit: Yes Status: Acute Assessment and plan: EKG normal. Troponins extending downward. Troponin elevation likely secondary to WANDA. Consider atypical presentation of ACS and diabetic patient. Patient denies any active chest pain and is currently on aspirin 81 mg daily. (8) DVT prophylaxis Current Visit: Yes Status: Acute Assessment and plan: Heparin Patient seen and examined, plan discussed with and agreed upon with Dr. Mclean - Subjective Interval history: Patient resting comfortably in bed. Patient reports nausea and left upper quadrant pain has resolved. Patient reports multiple episodes of diarrhea this morning and is tolerating clear liquid diet - Constitutional Vitals: Temp Pulse Resp BP Pulse Ox 97.6 F 71 16 104/61 95 04/18/17 04:03 04/18/17 04:03 04/18/17 04:03 04/18/17 04:03 04/18/17 04:03 General appearance: Present: A&O X 3, pleasant, no acute distress, obese - Head Head exam: Present: atraumatic, normocephalic - Eye Eye exam: Present: PERRL, conjuntiva pink, sclera anicteric Pupils: Present: PERRL - ENT ENT exam: Present: mucous membranes moist, normal oropharynx - Neck Neck exam general surgery: Present: supple, trachea midline. Absent: lymphadenopathy - Respiratory Respiratory exam: Present: CTAB. Absent: accessory muscle use, rales, rhonchi, wheezes - Cardiovascular Cardiovascular exam: Present: RRR, +S1, +S2. Absent: diastolic murmur, gallop, rubs, systolic murmur - GI/Abdominal GI/Abdominal exam: Present: normal bowel sounds, soft, tenderness, no peritoneal signs. Absent: distended, guarding, rebound Additional comments: Epigastric - Extremities Exam Extremities exam: Present: warm, radial pulses palpable and symetrical. Absent : calf tenderness, cyanotic, pedal edema - Neurological Exam Neurological exam: Present: CN II-XII intact, oriented X3, no focal deficits. Absent: pronater drift, facial droop, speech deficit - Psychiatric Psychiatric exam: Present: normal affect, normal mood - Skin Skin exam: Present: dry, intact Internal Medicine: Result - Labs CBC & Chem 7: 04/18/17 04:22 04/18/17 04:22 Labs: Short CBC 04/18/17 Range/Units 04:22 WBC 9.3 (4.3-11.1) K/mcL Hgb 11.8 D (11.5-15.4) g/dL Hct 36.1 (35.3-44.9) % Plt Count 222 (140-400) K/mcL Neutrophils # 4.1 (1.6-8.9) K/mcL BMP 04/18/17 04:22 Sodium 140 Potassium 5.1 H Chloride 112 H Carbon Dioxide 20 BUN 33 H Creatinine 3.08 H Glucose 101 H Calcium 8.3 L D Cardiac Enzymes 04/17/17 04/18/17 Range/Units 22:15 04:22 Troponin I 0.09 H* 0.06 H* (0-0.03) ng/mL - EKG Interpretation EKG Interpreted by Myself: Yes EKG shows normal: sinus rhythm Rate: normal Consult Discharge Plan - Plan Referrals: Zaki Brown DO [Primary Care Provider] - (web request sent on 04/18/17) <Gallito Valente - Last Filed: 04/18/17 14:02> Date of Encounter: 04/18/17 - Constitutional Vitals: Temp Pulse Resp BP Pulse Ox 98.0 F 70 14 109/60 96 04/18/17 10:55 04/18/17 10:55 04/18/17 10:55 04/18/17 10:55 04/18/17 10:55 Internal Medicine: Result - Labs CBC & Chem 7: 04/18/17 04:22 04/18/17 04:22 Labs: Short CBC 04/18/17 Range/Units 04:22 WBC 9.3 (4.3-11.1) K/mcL Hgb 11.8 D (11.5-15.4) g/dL Hct 36.1 (35.3-44.9) % Plt Count 222 (140-400) K/mcL Neutrophils # 4.1 (1.6-8.9) K/mcL BMP 04/18/17 04:22 Sodium 140 Potassium 5.1 H Chloride 112 H Carbon Dioxide 20 BUN 33 H Creatinine 3.08 H Glucose 101 H Calcium 8.3 L D Cardiac Enzymes 04/17/17 04/18/17 Range/Units 22:15 04:22 Troponin I 0.09 H* 0.06 H* (0-0.03) ng/mL - Attending Attestation Acute renal failure possible ATN secondary to severe dehydration from acute gastroenteritis viral versus bacterial Increase IV fluids, hold lisinopril and Lasix Send Giardia, cryptosporidium and GI panel Stool culture Elevated troponins likely secondary to demand ischemia Hold metformin I examined this patient and my medical decision-making was reviewed with the CONTROL ROOM TECHNICIAN/PA/Advanced Practice Nurse/Resident Physician. I agree with the documented findings, disposition and treatment plan as described except to the extent set forth below.
[2017-04-18] MEDS: Insulin LISPRO 300 UNITS/3 ML VIAL SQ SCH ×4 (08:12→22:30)
[2017-04-18] MEDS: *HR* Heparin 5,000 UNIT/ML VIAL SQ SCH ×2 (09:31→15:06)
[2017-04-18] MEDS: Pantoprazole 40 MG VIAL IVP SCH (09:32)
--- NOTE | 2017-04-18 11:35 | Electrocardiograph Report ---
[place] [id number] Test Date: 2017-04-17 Pat Name: Melinda Goins Department: 104 Room: 2A48 Gender: F Player Manager: MSC : [id number] Requested By: Juventino Gaona Order Number: [id number] Reading MD: Montse Lombardo Measurements Intervals Eighty Four Rate: 82 P: 50 CO: 157 QRS: 27 QRSD: 83 T: 45 QT: 336 QTc: 375 Interpretive Statements SINUS RHYTHM Electronically Signed On 04-18-2017 11:34:15 EDT by Montse Lombardo
[2017-04-18] MEDS ORDERED: 0.9 % Sodium Chloride 1,000 ML IVC SCH (13:59)
[2017-04-18 18:32] LABS: C.difficile Toxin A/B by PCR Not detected (Not detect); Campylobacter by PCR Not detected (Not detect); Cryptosporidium by PCR Not detected (Not detect); E. coli O157 by PCR Not detected (Not detect); Enteroaggregative E.coli(EAEC) Not detected (Not detect); Enteropathogenic E.coli(EPEC) Not detected (Not detect); Enterotoxigenic E.coli (ETEC) Not detected (Not detect); Plesiomonas shigelloides PCR Not detected (Not detect); Salmonella PCR Not detected (Not detect); Shig/EnteroinvasiveE coli EIEC Not detected (Not detect); Shigalike tox-prod E coli STEC Not detected (Not detect); Vibrio PCR Not detected (Not detect); Vibrio cholerae PCR Not detected (Not detect); Yersinia enterocolitica PCR Not detected (Not detect)
[2017-04-18 18:33] LABS: Adenovirus F 40/41 PCR Not detected (Not detect); Astrovirus PCR Not detected (Not detect); Cyclospora cayetanensis PCR Not detected (Not detect); Entamoeba histolytica PCR Not detected (Not detect); Giardia lamblia PCR Not detected (Not detect); Norovirus GI/GII PCR Not detected (Not detect); Rotavirus A PCR Not detected (Not detect); Sapovirus PCR Not detected (Not detect)
[2017-04-18] MEDS: Aspirin 81 MG TAB.CHEW PO SCH (21:35)
[2017-04-18] MEDS: Gabapentin 300 MG CAPSULE PO SCH (21:35)
[2017-04-19] MEDS: *HR* Heparin 5,000 UNIT/ML VIAL SQ SCH ×4 (00:50→23:13)
[2017-04-19] MEDS: 0.9 % Sodium Chloride 1,000 ML IVC SCH ×4 (00:50→20:04)
[2017-04-19 06:15] LABS: Hematocrit 31.2 % (35.3-44.9); Hemoglobin 10.3 g/dL (11.5-15.4); Mean Corpuscular Hemoglobin 31.1 pg (28.0-33.3); Mean Corpuscular Volume 94.3 fL (83.0-100.0); Mean Platelet Volume 11.9 fL (9.4-12.4); Platelet Count 189 K/mcL (140-400); Red Blood Count 3.31 M/mcL (3.82-4.97); Red Cell Distribution Width 13.6 % (11.5-14.5)
[2017-04-19 06:44] LABS: Calcium 7.4 mg/dL (8.6-10.8); Potassium 4.4 mEq/L (3.5-4.5)
--- NOTE | 2017-04-19 08:37 | Internal Med Progress Note ---
<Farhat Millan - Last Filed: 04/19/17 08:34> Date of Encounter: 04/19/17 Time of Encounter: 08:35 - Assessment and plan (1) ATN (acute tubular necrosis) Current Visit: Yes Status: Suspected Assessment and plan: Improving. Creatinine of 1.52 today. Acute renal failure, possible ATN secondary to severe dehydration from acute gastroenteritis viral versus bacterial causing nausea, vomiting, and diarrhea. UA showed hyaline casts, not concerning for infection. CT Abd/pelvis showed no acute finding in abdomen or pelvis, non-obstructing 1mm Left renal stone. Retroperitoneal ultrasound showed Unremarkable ultrasound of the kidneys and urinary bladder. Hold metformin, lasix, and lisinopril. Avoid NSAIDs. Continue NS at 150mL/hr. (2) Acute renal failure Current Visit: Yes Status: Acute Assessment and plan: See above Qualifiers: Acute renal failure type: unspecified Qualified Code(s): N17.9 - Acute kidney failure, unspecified (3) Severe dehydration Current Visit: Yes Status: Acute Assessment and plan: See above (4) Acute gastroenteritis Current Visit: Yes Status: Acute Assessment and plan: Improving. Acute gastroenteritis viral versus bacterial causing nausea, vomiting, and diarrhea. Negative GI panel for Giardia, cryptosporidium, and occult blood negative, Stool culture pending. Patient tolerating clear liquid diet. Advance to BRAT diet (5) DMII (diabetes mellitus, type 2) Current Visit: Yes Status: Chronic Assessment and plan: Hold Metformin. Continue sliding-scale insulin. Diabetic diet. Qualifiers: Diabetes mellitus complication status: with unspecified complications Diabetes mellitus half-way insulin use: without half-way use Qualified Code( s): E11.8 - Type 2 diabetes mellitus with unspecified complications (6) HTN (hypertension) Current Visit: Yes Status: Chronic Assessment and plan: Hold Lasix and lisinopril secondary to take WANDA. Continue to monitor Qualifiers: Hypertension type: essential hypertension Qualified Code(s): I10 - Essential (primary) hypertension (7) Hypothyroid Current Visit: No Status: Chronic Assessment and plan: Continue to monitor Qualifiers: Hypothyroidism type: unspecified Qualified Code(s): E03.9 - Hypothyroidism , unspecified (8) Hyperkalemia Current Visit: Yes Status: Resolved Assessment and plan: resolved. Likely secondary to vomiting and diarrhea. Hold Lasix. (9) Demand ischemia Current Visit: Yes Status: Acute Assessment and plan: EKG normal. Troponins trending downward. Troponin elevation likely secondary to WANDA. Unlikely atypical presentation of ACS and diabetic patient. Patient denies any active chest pain and is currently on aspirin 81 mg daily. (10) DVT prophylaxis Current Visit: Yes Status: Acute Assessment and plan: Heparin Patient seen and examined, plan discussed with and agreed upon with Dr. Mclean - Subjective Interval history: Patient resting comfortably in bed. Patient reports nausea and abdomen pain has resolved. Patient reports no further episodes of diarrhea since yesterday afternoon and is tolerating clear liquid diet - Constitutional Vitals: Temp Pulse Resp BP Pulse Ox 97.6 F 66 16 136/77 96 04/19/17 07:21 04/19/17 07:21 04/19/17 07:21 04/19/17 07:21 04/19/17 07:21 General appearance: Present: A&O X 3, pleasant, no acute distress, obese - Head Head exam: Present: atraumatic, normocephalic - Eye Eye exam: Present: PERRL, conjuntiva pink, sclera anicteric Pupils: Present: PERRL - ENT ENT exam: Present: mucous membranes moist, normal oropharynx - Neck Neck exam general surgery: Present: supple, trachea midline. Absent: lymphadenopathy - Respiratory Respiratory exam: Present: CTAB. Absent: accessory muscle use, rales, rhonchi, wheezes - Cardiovascular Cardiovascular exam: Present: RRR, +S1, +S2. Absent: diastolic murmur, gallop, rubs, systolic murmur - GI/Abdominal GI/Abdominal exam: Present: normal bowel sounds, soft, tenderness, no peritoneal signs. Absent: distended, guarding, rebound Additional comments: Mild epigastric tenderness with palpation - Extremities Exam Extremities exam: Present: warm, radial pulses palpable and symetrical. Absent : calf tenderness, cyanotic, pedal edema - Neurological Exam Neurological exam: Present: CN II-XII intact, oriented X3, no focal deficits. Absent: pronater drift, facial droop, speech deficit - Psychiatric Psychiatric exam: Present: normal affect, normal mood - Skin Skin exam: Present: dry, intact, warm Internal Medicine: Result - Labs CBC & Chem 7: 04/19/17 04:16 04/19/17 04:16 Labs: Short CBC 04/19/17 Range/Units 04:16 WBC 7.3 (4.3-11.1) K/mcL Hgb 10.3 L D (11.5-15.4) g/dL Hct 31.2 L (35.3-44.9) % Plt Count 189 (140-400) K/mcL [facility] 04/19/17 04:16 Sodium 134 L Potassium 4.4 Chloride 109 Carbon Dioxide 19 BUN 21 H D Creatinine 1.52 H D Glucose 122 H Calcium 7.4 L - Impressions Impressions Retroperitoneum Ultrasound 04/18/17 16:00 IMPRESSION: Unremarkable ultrasound of the kidneys and urinary bladder. D/ / Artis Newman MD / Artis Newman MD Interpreting Provider: Artis Newman MD Consult Discharge Plan - Plan Referrals: Zaki Brown DO [Primary Care Provider] - (web request sent on 04/18/17) <Gallito Valente - Last Filed: 04/19/17 13:23> Date of Encounter: 04/19/17 - Constitutional Vitals: Temp Pulse Resp BP Pulse Ox 98.1 F 62 18 143/80 96 04/19/17 11:37 04/19/17 11:37 04/19/17 11:37 04/19/17 11:37 04/19/17 11:37 Internal Medicine: Result - Labs CBC & Chem 7: 04/19/17 04:16 04/19/17 04:16 Labs: Short CBC 04/19/17 Range/Units 04:16 WBC 7.3 (4.3-11.1) K/mcL Hgb 10.3 L D (11.5-15.4) g/dL Hct 31.2 L (35.3-44.9) % Plt Count 189 (140-400) K/mcL [facility] 04/19/17 04:16 Sodium 134 L Potassium 4.4 Chloride 109 Carbon Dioxide 19 BUN 21 H D Creatinine 1.52 H D Glucose 122 H Calcium 7.4 L - Impressions Impressions Retroperitoneum Ultrasound 04/18/17 16:00 IMPRESSION: Unremarkable ultrasound of the kidneys and urinary bladder. D/ / Artis Newman MD / Artis Newman MD Interpreting Provider: Artis Newman MD - Attending Attestation ATN secondary to severe dehydration due to acute gastroenteritis viral versus bacterial Negative GI panel, negative for Giardia and cryptosporidium Hold antibiotic therapy I examined this patient and my medical decision-making was reviewed with the ADMINISTRATIVE ASST/PA/Advanced Practice Nurse/Resident Physician. I agree with the documented findings, disposition and treatment plan as described except to the extent set forth below.
[2017-04-19] MEDS: Pantoprazole 40 MG VIAL IVP SCH (09:31)
[2017-04-19] MEDS: Insulin LISPRO 300 UNITS/3 ML VIAL SQ SCH ×4 (09:36→20:44)
[2017-04-19] MEDS: Gabapentin 300 MG CAPSULE PO SCH (20:04)
[2017-04-19] MEDS: Aspirin 81 MG TAB.CHEW PO SCH (20:04)
[2017-04-20 06:47] LABS: BUN/Creatinine Ratio 11 (6-26); Blood Urea Nitrogen 10 mg/dL (7-20); Calcium 7.9 mg/dL (8.6-10.8); Carbon Dioxide 23 mEq/L (19-29); Chloride 111 mEq/L (98-109); Glucose 137 mg/dL (70-99); Osmolality,Calculated 291 (280-300); Potassium 4.4 mEq/L (3.5-4.5); Sodium 140 mEq/L (136-145); eGFR For African Americans > 60 (> 60); eGFR For Non-African Americans 59 (> 60)
[2017-04-20 06:48] LABS: Hematocrit 36.3 % (35.3-44.9); Hemoglobin 11.7 g/dL (11.5-15.4); Mean Corpuscular HGB Conc 32.2 g/dL (31.6-35.5); Mean Corpuscular Hemoglobin 30.3 pg (28.0-33.3); Mean Platelet Volume 11.2 fL (9.4-12.4); Platelet Count 208 K/mcL (140-400); Red Blood Count 3.86 M/mcL (3.82-4.97); Red Cell Distribution Width 13.7 % (11.5-14.5)
[2017-04-20] MEDS ORDERED: Ipratropium/Albuterol Neb 3 ML IH PRN (07:08)
--- NOTE | 2017-04-20 08:20 | Death Note ---
Discharge Sum: Summary - Date and Time Date of admission: 04/17/17 22:00 - Additional Data Attending physician: Blanco Pepper MD Discharge Sum: Prov - Provider Primary care physician: Zaki Brown,
--- NOTE | 2017-04-20 08:21 | Discharge Summary ---
<Monty Butterfield - Last Filed: 04/20/17 14:00> Date of Encounter: 04/20/17 - Discharge Diagnosis (1) ATN (acute tubular necrosis) Status: Resolved (2) Severe dehydration Priority: Secondary Status: Acute (3) Acute gastroenteritis Priority: Primary Status: Acute (4) DMII (diabetes mellitus, type 2) Priority: Secondary Status: Chronic Qualifiers: Diabetes mellitus complication status: with neurologic complications Diabetes mellitus complication detail: with polyneuropathy Diabetes mellitus long term care social worker insulin use: without [place] [facility] use Qualified Code(s): E11.42 - Type 2 diabetes mellitus with diabetic polyneuropathy (5) HTN (hypertension) Priority: Secondary Status: Chronic Qualifiers: Hypertension type: essential hypertension Qualified Code(s): I10 - Essential (primary) hypertension (6) Hypothyroid Priority: Secondary Status: Chronic Qualifiers: Hypothyroidism type: acquired Qualified Code(s): E03.9 - Hypothyroidism, unspecified - Discharge Medications Home Medications: Aspirin 81 mg PO HS 11/13/16 [History] Calcium Carbonate/Vitamin D3 [Calcium 1,000 + D3 Caplet] 1 each PO HS 11/13/16 [ History] Furosemide [Lasix] 20 mg PO DAILY 11/13/16 [History] Gabapentin 1,200 mg PO BID 11/13/16 [History] Levothyroxine Sodium 100 mcg PO QAM 11/13/16 [History] Lisinopril 40 mg PO HS 11/13/16 [History] Metformin HCl 500 mg PO BID 11/13/16 [History] Multivitamin [One Daily Multivitamin] 1 each PO HS 11/13/16 [History] Omeprazole [PriLOSEC] 40 mg PO DAILY 11/13/16 [History] Sertraline [Zoloft] 50 mg PO DAILY 11/13/16 [History] Zolpidem [Ambien] 10 mg PO HS PRN 11/13/16 [History] Atorvastatin Calcium [Lipitor] 20 mg PO HS 04/17/17 [History] Allergies/Adverse Reactions: Allergies ayana flavor Allergy (Verified 04/17/17 15:40) Swelling of Lip/Tongue/Throat Sulfa (Sulfonamide Antibiotics) Adverse Reaction (Unknown, Verified 11/13/16 08: 42) See Comments patient states unknown childhood reaction Procedures/tests Complete & Pending: Procedures Performed prior 72 hours Category Date Time Status US retroperitoneal comp [US] Routine Exams 04/18/17 16:00 Completed Date of admission: 04/17/17 22:00 Primary care physician: Zaki Brown, - Patient Status Disposition: Home, Self-Care Condition: Good - Discharge Instructions Instructions: Gastroenteritis (DC) Follow Up With: Zaki Brown DO [Primary Care Provider] - 04/25/17 9:30 am (web request sent on 04/18/17) Kyle Lazar MD [Partnered Physician] - (Follow up with GI specialist in 10 days for chronic for chronic diarrhea and gastroenteritis. Needs colonoscopy.) Additional Instructions: Advance from BRAT diet to high fiber diet as tolerated. Stay hydrated. Follow up with GI/ Dr. Lazar in 10 days. Need to schedule colonoscopy. Hospital course: Ms. Goins is a 71 year old female - Time Spent with Patient Total time spent providing and/or coordinating discharge services: 39min - Constitutional Vitals: Temp Pulse Resp BP Pulse Ox 98.3 F 59 18 145/72 98 04/20/17 10:52 04/20/17 10:52 04/20/17 10:52 04/20/17 10:52 04/20/17 10:52 - Attending Attestation /I examined this patient and my medical decision-making was reviewed with the Resident Physician on 04/20/17. I agree with the documented findings, disposition an/d treatment plan as described except to the extent set forth below. Ms. Goins was originally admitted due to acute renal failure due to ATN from dehydration. She has been hydrated and her renal function has returned to normal. She feels well today and denies pain. On questioning she stated she has frequent episodes of "diarrhea" and last colonoscopy was about 8 years ago. She did have positive guiac stool in past but negative now. No abd pain. No fever or chills and vitals stable. Exam Alert. Comfortable Heart reg No wheeze Abd nontender No edema Creatinine normal. Plan D/C home today Encouraged her that she needs GI follow up to work up her persistent "diarrhea" and most likely will need further studies (especially since this episode resulted in WANDA). Advance diet as tolerated. <Farhat Millan - Last Filed: 04/20/17 14:33> Date of Encounter: 04/20/17 Time of Encounter: 08:21 - Discharge Diagnosis (1) ATN (acute tubular necrosis) Priority: Primary Status: Resolved Comments: ATN secondary to severe dehydration due to acute gastroenteritis viral versus bacterial Negative GI panel, negative for Giardia and cryptosporidium Hold antibiotic therapy. CT Abd/pelvis showed no acute finding in abdomen or pelvis, non-obstructing 1mm Left renal stone. Retroperitoneal ultrasound showed Unremarkable ultrasound of the kidneys and urinary bladder. Hold metformin, lasix, and lisinopril. Avoid NSAIDs. (2) Acute renal failure Priority: Primary Status: Acute Comments: See above Qualifiers: Acute renal failure type: unspecified Qualified Code(s): N17.9 - Acute kidney failure, unspecified (3) Severe dehydration Priority: Primary Status: Acute Comments: severe dehydration from acute gastroenteritis viral versus bacterial causing nausea, vomiting, and diarrhea. (4) Acute gastroenteritis Priority: Primary Status: Acute (5) DMII (diabetes mellitus, type 2) Priority: Secondary Status: Chronic Comments: Resume metformin upon discharge. Continue diabetic diet. Qualifiers: Diabetes mellitus complication status: with neurologic complications Diabetes mellitus complication detail: with polyneuropathy Diabetes mellitus [facility] insulin use: without [facility] use (6) HTN (hypertension) Status: Chronic Comments: Resume Lasix and lisinopril. Continue to monitor Qualifiers: Hypertension type: essential hypertension Qualified Code(s): I10 - Essential (primary) hypertension (7) Hypothyroid Status: Chronic Comments: Continue outpatient therapy Qualifiers: Hypothyroidism type: acquired Qualified Code(s): E03.9 - Hypothyroidism, unspecified (8) Hyperkalemia Priority: Primary Status: Resolved (9) Demand ischemia Priority: Secondary Status: Acute Comments: EKG normal. Troponins trending downward. Troponin elevation likely secondary to WANDA. Unlikely atypical presentation of ACS and diabetic patient. Patient denies any active chest pain and is currently on aspirin 81 mg daily. (10) DVT prophylaxis Status: Acute Comments: Heparin Patient seen and examined, plan discussed with and agreed upon with Dr. Butterfield Procedures/tests Complete & Pending: Procedures Performed prior 72 hours Category Date Time Status US retroperitoneal comp [US] Routine Exams 04/18/17 16:00 Completed Date of admission: 04/17/17 22:00 Primary care physician: Zaki Brown, Discharging clinician: Monty Butterfield Anticipated date of discharge: 04/20/17 - Patient Status Functional capacity at discharge: independent ambulation Overall status at discharge: patient is back to baseline - Diet and Activity Activity: increase activity as tolerated Diet: advance to your usual diet, other (high fiber diet) Hospital course: Ms. Goins is a 71 year old female with hypertension, type 2 diabetes, hypothyroid, presented to the emergency department with complaints of nausea, vomiting, diarrhea, and acute kidney injury seen on outpatient labs at her PCP. Patient reports that approximately 2 weeks ago she developed nausea, vomiting and diarrhea that lasted 3-4 days. She reported feeling better and returned to work for approximately 3 days when her symptoms returned. She reported poor appetite and has not had much oral intake. She reported drinking some water and 7-Up, without much success. She reported subjective fever, chills, occasional brief left-sided abdominal pain, which comes on suddenly at rest and lasted briefly. Evaluation in the emergency department revealed elevated white blood cell count of 15.7, elevated hemoglobin and hematocrit, BUN and creatinine were elevated at 30 and 3.27 respectively, indicating acute tubular necrosis ( her baseline creatinine is 0.87). Potassium was also elevated at 5.4. Troponin was elevated at 0.14 and repeat Troponins trended downward. Troponin elevation likely secondary to demand ischemia. Unlikely atypical presentation of ACS and diabetic patient. Patient denied any current chest pain , and EKG showed no ischemic changes. Abdomen was diffusely tender to palpation. CT of the abdomen and pelvis showed no acute finding in abdomen or pelvis, nonobstructing 1 mm left renal stone. Patient was given fluid bolus and started on maintenance fluids. Her GI panel was negative for Giardia, cryptosporidium, and occult blood negative. Patient tolerated clear liquid diet and was advanced to BRAT diet by hospital day 3. Patient instructed to follow- up with GI upon discharge. - Time Spent with Patient Total time spent providing and/or coordinating discharge services: - Constitutional Vitals: Temp Pulse Resp BP Pulse Ox 97.4 F L 60 20 162/78 99 04/20/17 06:53 04/20/17 07:12 04/20/17 07:12 04/20/17 07:12 04/20/17 07:14 General appearance: Present: A&O X 3, pleasant, no acute distress, obese, answers questions appropriately - Head Head exam: Present: atraumatic, normocephalic - Eye Eye exam: Present: PERRL, conjuntiva pink, sclera anicteric Pupils: Present: PERRL - ENT ENT exam: Present: mucous membranes moist, normal oropharynx - Neck Neck exam general surgery: Present: supple, trachea midline. Absent: lymphadenopathy - Respiratory Respiratory exam: Present: CTAB. Absent: accessory muscle use, rales, rhonchi, wheezes - Cardiovascular Cardiovascular exam: Present: RRR, +S1, +S2. Absent: diastolic murmur, gallop, rubs, systolic murmur - GI/Abdominal GI/Abdominal exam: Present: normal bowel sounds, soft, no peritoneal signs. Absent: distended, tenderness - Extremities Exam Extremities exam: Present: warm, radial pulses palpable and symetrical. Absent : calf tenderness, cyanotic, pedal edema - Neurological Exam Neurological exam: Present: CN II-XII intact, oriented X3, no focal deficits. Absent: pronater drift, facial droop, speech deficit - Psychiatric Psychiatric exam: Present: normal affect, normal mood - Skin Skin exam: Present: dry, intact
[2017-04-20] MEDS ORDERED: Furosemide 40 MG in 0.9 % Sodium Chloride 50 ML IVPB ONE (08:59)
[2017-04-20] MEDS ORDERED: Gabapentin 300 MG CAPSULE PO SCH (09:00)
[2017-04-20] MEDS ORDERED: Ipratropium/Albuterol Neb 3 ML IH SCH (09:00)
[2017-04-20] MEDS: *HR* Heparin 5,000 UNIT/ML VIAL SQ SCH (09:11)
[2017-04-20] MEDS: Insulin LISPRO 300 UNITS/3 ML VIAL SQ SCH ×2 (09:12→12:39)
[2017-04-20] MEDS ORDERED: Albuterol 2.5 MG/3 ML NEBULIZER IH PRN (10:14)
[2017-04-20 11:00] VITALS: BP 145/72
== END 2017-04-20 13:40 | disposition home or self-care (01) | DRG 683 ==
LOC: EMEROO 15:00 → 2ANU 15:00 → SUATTDRO 22:00 → 2ANU 04-19 16:27
PROVIDERS: ADMIT Pediatrics; ATTEND Internal Medicine

== ENCOUNTER 2017-12-14 09:38 | Observation (INO) ==
[2017-12-14] MEDS ORDERED: Aspirin 81 MG TAB.CHEW PO ONE (10:09)
--- NOTE | 2017-12-14 10:10 | Emergency Department Note ---
Disposition Clinical Impression: Chest pain Disposition: Admitted As Inpatient Condition: Fair Chest Pain HPI - General Chief Complaint: ED Chest Pain Stated Complaint: CP Time Seen by Provider: 12/14/17 09:55 Source: patient Limitations: no limitations Vital Signs Reviewed: Yes Nursing Notes Reviewed: Yes - History of Present Illness Severity scale (1-10): 3 - Related Data Home Medications Medication Instructions Recorded Confirmed Aspirin 81 mg PO HS 11/13/16 12/14/17 Furosemide [Lasix] 20 mg PO DAILY 11/13/16 12/14/17 Gabapentin 600 mg PO Q6H 11/13/16 12/14/17 Levothyroxine Sodium 100 mcg PO QAM 11/13/16 12/14/17 Lisinopril 40 mg PO HS 11/13/16 12/14/17 Metformin HCl 1,000 mg PO BID 11/13/16 12/14/17 Multivitamin [One Daily 1 each PO HS 11/13/16 12/14/17 Multivitamin] Sertraline [Zoloft] 50 mg PO DAILY 11/13/16 12/14/17 Zolpidem [Ambien] 10 mg PO HS PRN 11/13/16 12/14/17 Atorvastatin Calcium [Lipitor] 20 mg PO HS 04/17/17 12/14/17 Oxybutynin [Ditropan] 5 mg PO BID 06/18/17 12/14/17 Calcium Carb/D3/Magnesium/Zinc 1 tab PO DAILY 08/08/17 12/14/17 [Arthur Mag Zinc + D Tablet] Cholecalciferol (D-3) [Vitamin D] 1,000 unit PO DAILY 08/08/17 12/14/17 Cholestyramine [Cholestyramine] 1 packet PO BID 08/08/17 12/14/17 Pantoprazole Sodium 40 mg PO DAILY 08/08/17 12/14/17 Cyclobenzaprine [Flexeril] 0.5 - 1 tab PO TID PRN 12/14/17 12/14/17 Meloxicam [Meloxicam] 15 mg PO DAILY 12/14/17 12/14/17 Sucralfate [Carafate] 1 gm PO TID 12/14/17 12/14/17 Allergies Allergy/AdvReac Type Severity Reaction Status Date / Time ayana flavor Allergy Swelling Verified 12/14/17 10:55 of Lip/Tongue/Throat Sulfa (Sulfonamide AdvReac Unknown See Verified 12/14/17 10:55 Antibiotics) Comments Chest Pain PMH - Past Medical History Medical history: Reports: arthritis, CVA, diabetes, hyperlipidemia, hypertension , renal disease, thyroid disease, TIA, other Surgical history: Reports: cholecystectomy, knee replacement, orthopedic, other , other Psychiatric history: Reports: depression - Social History Smoking Status: Current every day smoker Alcohol use: Reports: none Drug use: Reports: none Physical Exam - General Limitations: no limitations General appearance: alert Course Vital Signs Temperature 99.1 F 12/14/17 09:48 Pulse Rate 65 12/14/17 09:48 Respiratory Rate 20 12/14/17 09:48 Blood Pressure 197/64 12/14/17 09:48 O2 Sat by Pulse Oximetry 97 12/14/17 09:48 Temperature 99.1 F 12/14/17 09:48 Pulse Rate 57 12/14/17 12:03 Respiratory Rate 18 12/14/17 12:03 Blood Pressure 175/82 12/14/17 12:03 O2 Sat by Pulse Oximetry 97 12/14/17 12:03 Oxygen Delivery Oxygen Delivery Room Air Chest Pain - MDM Narrative Medical decision making narrative: This documentation is done with the assistance of Dragon dictation. Despite efforts made to ensure accuracy, there may be inaccuracies in nurse care manager or spelling and typographical errors. I examined this patient and my medical decision-making was reviewed with the Resident Physician. I agree with the documented findings, disposition and treatment plan as described except to the extent set forth below. Patient seen and evaluated today by Dr. Burciaga and myself, I agree with her evaluation and treatment plan and supervising care the patient's stay. Patient was getting about 5 minutes of chest pain this been going on up last couple days center of her chest does not radiate then resolves. No cardiac history but she does have history diabetes and hypertension. She was over in the orthopedic clinic today and told them about suicide her to be seen. She said she did not really want to be evaluated but I think we have talked her into it. It tore we can do an EKG to check a blood test and chest x-ray. And then reassess. She says she does not want to stay in the hospital. She is in agreement with this plan. Chest X-Ray 12/14/17 10:06 IMPRESSION: Mild congestive changes. Ectasia of the aorta. D/ / 12/14/2017 10:27:24 Jarrett Daily MD / wendy Interpreting Provider: Jarrett Daily MD 1126 hrs.: Patient is pain-free. Her troponins negative. However she just had the chest pain this morning so it may not be long enough to elevate the troponin. She has cardiac risk or cigarettes her heart score of 5. Were in to bring her into the hospital she is in agreement this plan. Paging hospitalist at this time. Chest pain rule out ACS. She is in agreement. - Lab Data Result diagrams: 12/14/17 10:23 12/14/17 10:23 Lab Results 12/14/17 12/14/17 12/14/17 Range/Units 10:23 10:23 10:23 WBC 7.3 (4.3-11.1) K/mcL RBC 3.89 (3.82-4.97) M/mcL Hgb 12.5 (11.5-15.4) g/dL Hct 37.6 (35.3-44.9) % MCV 96.7 (83.0-100.0) fL MCH 32.1 (28.0-33.3) pg MCHC 33.2 (31.6-35.5) g/dL RDW 14.1 (11.5-14.5) % Plt Count 277 (140-400) K/mcL MPV 10.1 (9.4-12.4) fL Immature Gran % 0.3 (0-4) % Seg Neutrophils % 48.1 % Lymphocytes % 39.5 % Monocytes % 5.3 % Eosinophils % 5.8 % Basophils % 1.0 % Neutrophils # 3.5 (1.6-8.9) K/mcL Lymphocytes # 2.9 (0.6-4.6) K/mcL Monocytes # 0.4 (0.0-1.3) K/mcL Eosinophils # 0.4 (0.0-0.6) K/mcL Basophils # 0.1 (0.0-0.2) K/mcL APTT 28.8 (26.0-36.0) Seconds Sodium 135 L (136-145) mEq/L Potassium 4.4 (3.5-5.1) mEq/L Chloride 103 (98-107) mEq/L Carbon Dioxide 26 (23-29) mEq/L BUN 18 (8-23) mg/dL Creatinine 0.87 (0.60-1.20) mg/dL Est GFR ( Amer) > 60 (> 60) Est GFR (Non-Af Amer) > 60 (> 60) BUN/Creatinine Ratio 21 (6-26) Glucose 175 H (70-105) mg/dL Calculated Osmolality 286 (280-300) Calcium 9.6 (8.6-10.3) mg/dL Troponin I < 0.03 (< 0.04) ng/mL B-Natriuretic Peptide (Less than 100) pg/mL 12/14/17 Range/Units 10:41 WBC (4.3-11.1) K/mcL RBC (3.82-4.97) M/mcL Hgb (11.5-15.4) g/dL Hct (35.3-44.9) % MCV (83.0-100.0) fL MCH (28.0-33.3) pg MCHC (31.6-35.5) g/dL RDW (11.5-14.5) % Plt Count (140-400) K/mcL MPV (9.4-12.4) fL Immature Gran % (0-4) % Seg Neutrophils % % Lymphocytes % % Monocytes % % Eosinophils % % Basophils % % Neutrophils # (1.6-8.9) K/mcL Lymphocytes # (0.6-4.6) K/mcL Monocytes # (0.0-1.3) K/mcL Eosinophils # (0.0-0.6) K/mcL Basophils # (0.0-0.2) K/mcL APTT (26.0-36.0) Seconds Sodium (136-145) mEq/L Potassium (3.5-5.1) mEq/L Chloride (98-107) mEq/L Carbon Dioxide (23-29) mEq/L BUN (8-23) mg/dL Creatinine (0.60-1.20) mg/dL Est GFR ( Amer) (> 60) Est GFR (Non-Af Amer) (> 60) BUN/Creatinine Ratio (6-26) Glucose (70-105) mg/dL Calculated Osmolality (280-300) Calcium (8.6-10.3) mg/dL Troponin I (< 0.04) ng/mL B-Natriuretic Peptide 26 (Less than 100) pg/mL
--- NOTE | 2017-12-14 10:15 | Emergency Department Note ---
Disposition Clinical Impression: Chest pain Qualifiers: Chest pain type: unspecified Qualified Code(s): R07.9 - Chest pain, unspecified Disposition: Admitted As Inpatient Condition: Fair Referrals: Zaki Brown DO [Primary Care Provider] - Forms: ED Satisfaction Letter Time of Disposition: 12:02 Chest Pain HPI - General Chief Complaint: ED Chest Pain Stated Complaint: CP Time Seen by Provider: 12/14/17 09:55 Source: patient Limitations: no limitations Vital Signs Reviewed: Yes Nursing Notes Reviewed: Yes - History of Present Illness HPI Narrative: Patient is a 72-year-old female who presents to [facility] ED with a chief complaint of chest pain. She was sent over by [facility] with concern for chest pain. She was there for assessment of her rotator cuff tear in the left shoulder. States she has had intermittent chest pressure over the last 2 weeks. 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 States she has felt intermittently a little sick to her stomach with these episodes. No difficulty breathing. No diaphoresis. Past medical history significant for type 2 diabetes in which patient states her sugars have been in the 180s to 190s over the last couple months. Also has hypertension and hyperlipidemia. No prior cardiac history. No prior stress tests or cardiac catheterizations. Pt complaint: chest pain Onset (ago): week(s) Duration: intermittent Pain Location: substernal Severity: moderate Severity scale (1-10): 3 Quality: heaviness Pain Radiation: none Improves with: nothing Worsens with: nothing Associated symptoms: Reports: nausea. Denies: vomiting, diaphoresis, dyspnea, fever, cough Treatments prior to arrival chest pain: none - Related Data Home Medications Medication Instructions Recorded Confirmed Aspirin 81 mg PO HS 11/13/16 12/14/17 Furosemide [Lasix] 20 mg PO DAILY 11/13/16 12/14/17 Gabapentin 600 mg PO Q6H 11/13/16 12/14/17 Levothyroxine Sodium 100 mcg PO QAM 11/13/16 12/14/17 Lisinopril 40 mg PO HS 11/13/16 12/14/17 Metformin HCl 1,000 mg PO BID 11/13/16 12/14/17 Multivitamin [One Daily 1 each PO HS 11/13/16 12/14/17 Multivitamin] Sertraline [Zoloft] 50 mg PO DAILY 11/13/16 12/14/17 Zolpidem [Ambien] 10 mg PO HS PRN 11/13/16 12/14/17 Atorvastatin Calcium [Lipitor] 20 mg PO HS 04/17/17 12/14/17 Oxybutynin [Ditropan] 5 mg PO BID 06/18/17 12/14/17 Calcium Carb/D3/Magnesium/Zinc 1 tab PO DAILY 08/08/17 12/14/17 [Arthur Mag Zinc + D Tablet] Cholecalciferol (D-3) [Vitamin D] 1,000 unit PO DAILY 08/08/17 12/14/17 Cholestyramine [Cholestyramine] 1 packet PO BID 08/08/17 12/14/17 Pantoprazole Sodium 40 mg PO DAILY 08/08/17 12/14/17 Cyclobenzaprine [Flexeril] 0.5 - 1 tab PO TID PRN 12/14/17 12/14/17 Meloxicam [Meloxicam] 15 mg PO DAILY 12/14/17 12/14/17 Sucralfate [Carafate] 1 gm PO TID 12/14/17 12/14/17 Allergies Allergy/AdvReac Type Severity Reaction Status Date / Time ayana flavor Allergy Swelling Verified 12/14/17 10:55 of Lip/Tongue/Throat Sulfa (Sulfonamide AdvReac Unknown See Verified 12/14/17 10:55 Antibiotics) Comments All systems ED: reviewed and negative except as stated. Chest Pain PMH - Past Medical History Medical history: Reports: arthritis, CVA, diabetes, hyperlipidemia, hypertension , renal disease, thyroid disease, TIA, other Surgical history: Reports: cholecystectomy, knee replacement, orthopedic, other , other Psychiatric history: Reports: depression - Social History Smoking Status: Current every day smoker Alcohol use: Reports: none Drug use: Reports: none Physical Exam - General Limitations: no limitations General appearance: alert - Head Head exam: atraumatic, normocephalic, normal inspection - Eye Eye exam: Present: normal appearance, EOMI - ENT ENT exam: normal exam, normal oropharynx, mucous membranes moist - Neck Neck exam: Present: normal inspection, full ROM, trachea midline - Chest Chest inspection: Present: normal inspection, symmetric chest wall rise - Respiratory Respiratory exam: Present: normal lung sounds bilaterally - Cardiovascular Cardiovascular exam: Present: regular rate, normal rhythm, normal heart sounds - Abdominal Exam Abdominal exam: Present: soft, Non-Tender. Absent: tenderness, distention, guarding, rebound, rigidity - Extremities Exam Extremities exam: Present: normal inspection, full ROM. Absent: tenderness, pedal edema - Back Exam Back exam: Present: normal inspection, full ROM. Absent: tenderness - Neurological Exam Neurological exam: Present: alert, oriented X3 - Psychiatric Psychiatric exam: Present: normal affect, normal mood - Skin Skin exam: Present: warm, dry, intact, normal color Course Course Narrative: Patient seen and examined. Intermittent chest pains over the last 2 weeks. Patient has multiple risk factors that put her at risk for ACS. Cardiopulmonary workup initiated. We will likely admit for ACS workup. - Reevaluation(s) Reevaluation #1: Lab work, imaging unremarkable. I discussed with hospitalist who has accepted patient for admission. Time: 12:01 Vital Signs Temperature 99.1 F 12/14/17 09:48 Pulse Rate 65 12/14/17 09:48 Respiratory Rate 20 12/14/17 09:48 Blood Pressure 197/64 12/14/17 09:48 O2 Sat by Pulse Oximetry 97 12/14/17 09:48 Temperature 99.1 F 12/14/17 09:48 Pulse Rate 62 12/14/17 10:46 Respiratory Rate 18 12/14/17 10:46 Blood Pressure 181/86 12/14/17 10:46 O2 Sat by Pulse Oximetry 95 12/14/17 10:46 Oxygen Delivery Oxygen Delivery Room Air Chest Pain - Medical Records Medical records reviewed: Yes I reviewed the patient's medical records. - Lab Data Lab results reviewed: Yes I reviewed the patient's lab results. Result diagrams: 12/14/17 10:23 12/14/17 10:23 Lab Results 12/14/17 12/14/17 12/14/17 Range/Units 10:23 10:23 10:23 WBC 7.3 (4.3-11.1) K/mcL RBC 3.89 (3.82-4.97) M/mcL Hgb 12.5 (11.5-15.4) g/dL Hct 37.6 (35.3-44.9) % MCV 96.7 (83.0-100.0) fL MCH 32.1 (28.0-33.3) pg MCHC 33.2 (31.6-35.5) g/dL RDW 14.1 (11.5-14.5) % Plt Count 277 (140-400) K/mcL MPV 10.1 (9.4-12.4) fL Immature Gran % 0.3 (0-4) % Seg Neutrophils % 48.1 % Lymphocytes % 39.5 % Monocytes % 5.3 % Eosinophils % 5.8 % Basophils % 1.0 % Neutrophils # 3.5 (1.6-8.9) K/mcL Lymphocytes # 2.9 (0.6-4.6) K/mcL Monocytes # 0.4 (0.0-1.3) K/mcL Eosinophils # 0.4 (0.0-0.6) K/mcL Basophils # 0.1 (0.0-0.2) K/mcL APTT 28.8 (26.0-36.0) Seconds Sodium 135 L (136-145) mEq/L Potassium 4.4 (3.5-5.1) mEq/L Chloride 103 (98-107) mEq/L Carbon Dioxide 26 (23-29) mEq/L BUN 18 (8-23) mg/dL Creatinine 0.87 (0.60-1.20) mg/dL Est GFR ( Amer) > 60 (> 60) Est GFR (Non-Af Amer) > 60 (> 60) BUN/Creatinine Ratio 21 (6-26) Glucose 175 H (70-105) mg/dL Calculated Osmolality 286 (280-300) Calcium 9.6 (8.6-10.3) mg/dL Troponin I < 0.03 (< 0.04) ng/mL B-Natriuretic Peptide (Less than 100) pg/mL 12/14/17 Range/Units 10:41 WBC (4.3-11.1) K/mcL RBC (3.82-4.97) M/mcL Hgb (11.5-15.4) g/dL Hct (35.3-44.9) % MCV (83.0-100.0) fL MCH (28.0-33.3) pg MCHC (31.6-35.5) g/dL RDW (11.5-14.5) % Plt Count (140-400) K/mcL MPV (9.4-12.4) fL Immature Gran % (0-4) % Seg Neutrophils % % Lymphocytes % % Monocytes % % Eosinophils % % Basophils % % Neutrophils # (1.6-8.9) K/mcL Lymphocytes # (0.6-4.6) K/mcL Monocytes # (0.0-1.3) K/mcL Eosinophils # (0.0-0.6) K/mcL Basophils # (0.0-0.2) K/mcL APTT (26.0-36.0) Seconds Sodium (136-145) mEq/L Potassium (3.5-5.1) mEq/L Chloride (98-107) mEq/L Carbon Dioxide (23-29) mEq/L BUN (8-23) mg/dL Creatinine (0.60-1.20) mg/dL Est GFR ( Amer) (> 60) Est GFR (Non-Af Amer) (> 60) BUN/Creatinine Ratio (6-26) Glucose (70-105) mg/dL Calculated Osmolality (280-300) Calcium (8.6-10.3) mg/dL Troponin I (< 0.04) ng/mL B-Natriuretic Peptide 26 (Less than 100) pg/mL - Radiology Data Radiology results reviewed: Yes I reviewed the patient's radiology results. Chest X-Ray 12/14/17 10:06 IMPRESSION: Mild congestive changes. Ectasia of the aorta. D/ / 12/14/2017 10:27:24 Jarrett Daily MD / wendy Interpreting Provider: Jarrett Daily MD - EKG Data EKG attestation: Yes I reviewed and interpreted this EKG. EKG results narrative: EKG done at 943 shows normal sinus rhythm with a rate of [address] elevation or depression. Normal axis. Heart Score - Score History: Moderately Suspicious EKG: Normal Age: Greater than 65 Risk Factors: Equal/Greater than 3 risk factor or history of atherosclerotic disease Troponin: Less than normal limit HEART Score Total: 5
[2017-12-14 10:36] LABS: Basophils # 0.1 K/mcL (0.0-0.2); Eosinophils # 0.4 K/mcL (0.0-0.6); Eosinophils % 5.8 %; Hematocrit 37.6 % (35.3-44.9); Hemoglobin 12.5 g/dL (11.5-15.4); Immature Granulocytes % 0.3 % (0-4); Lymphocytes # 2.9 K/mcL (0.6-4.6); Lymphocytes % 39.5 %; Mean Corpuscular HGB Conc 33.2 g/dL (31.6-35.5); Mean Corpuscular Hemoglobin 32.1 pg (28.0-33.3); Mean Corpuscular Volume 96.7 fL (83.0-100.0); Mean Platelet Volume 10.1 fL (9.4-12.4); Monocytes # 0.4 K/mcL (0.0-1.3); Monocytes % 5.3 %; Neutrophils # 3.5 K/mcL (1.6-8.9); Platelet Count 277 K/mcL (140-400); Red Blood Count 3.89 M/mcL (3.82-4.97); Red Cell Distribution Width 14.1 % (11.5-14.5); Segmented Neutrophils % 48.1 %
[2017-12-14 10:59] LABS: BUN/Creatinine Ratio 21 (6-26); Blood Urea Nitrogen 18 mg/dL (8-23); Calcium 9.6 mg/dL (8.6-10.3); Carbon Dioxide 26 mEq/L (23-29); Chloride 103 mEq/L (98-107); Glucose 175 mg/dL (70-105); Osmolality,Calculated 286 (280-300); Potassium 4.4 mEq/L (3.5-5.1); Sodium 135 mEq/L (136-145); eGFR For African Americans > 60 (> 60); eGFR For Non-African Americans > 60 (> 60)
[2017-12-14 11:00] LABS: Troponin I < 0.03 ng/mL (< 0.04)
[2017-12-14] MEDS ORDERED: Naloxone 0.4 MG/ML INJ IVP PRN (12:00)
[2017-12-14] MEDS ORDERED: *HR* HYDROcodone/Acet 5/325 mg TABLET PO PRN ×2 (12:00)
[2017-12-14] MEDS ORDERED: Acetaminophen 325 MG TABLET PO PRN ×2 (12:00)
--- NOTE | 2017-12-14 13:40 | Internal Med History&Physical ---
Date of Encounter: 12/14/17 Time of Encounter: 12:00 Assessment and Plan (1) Chest pain Current visit: Yes Status: Acute Will admit the pt into Tele for observation Will place pt on patient monitor check serial troponin so far negative troponin EKG reviewed- showed NSR, no acute ischemic changes noticed Cont ASA, Give Nitro PRN for pain Will check FLP in AM Will get stress test in AM since pt is high risk for ACS Qualifiers: Chest pain type: unspecified Qualified Code(s): R07.9 - Chest pain, unspecified (2) DMII (diabetes mellitus, type 2) Current visit: No Status: Chronic Qualifiers: Diabetes mellitus fdc insulin use: without fdc use Diabetes mellitus complication status: with neurologic complications Diabetes mellitus complication detail: with polyneuropathy Qualified Code(s): E11.42 - Type 2 diabetes mellitus with diabetic polyneuropathy (3) HTN (hypertension) Current visit: No Status: Chronic Fairly controlled will resume all her home medications also start her on hydralazine IV PRN Qualifiers: Hypertension type: essential hypertension Qualified Code(s): I10 - Essential (primary) hypertension (4) Hypothyroid Current visit: No Status: Chronic on Levothyroxine Qualifiers: Hypothyroidism type: acquired Qualified Code(s): E03.9 - Hypothyroidism, unspecified Internal Medicine - H&P: HPI Chief complaint: Chest pain Admitted From: Emergency Dept Plans for Post Hospital Care: Home History of present illness: Ms. Goins is a 72 year old female with a known past medical history of hypertension, diabetes type II, HLD, chronic tobacco dependence and CVA pt presented to ER with Left shoulder pain, also c/o intermittent Left chest wall pain from last one week. She denied any SOB / LOCKHART. Her CP is sharp pain, no radiating, intermittent and 6/10 in severity. She denied of any recent cardiac work up. Still smokes 2-3 packs / week. Past Med Surg Social Fam HX - Past Medical History Medical history: arthritis, CVA, diabetes, hyperlipidemia, hypertension, renal disease, thyroid disease, TIA, other Psychiatric history: depression - Past Surgical History Surgical History: cholecystectomy, knee replacement, orthopedic, other, other - Social History Smoking Status: Current every day smoker Smokeless Tobacco Status: No Alcohol use: none Drug use: none - Family History Father Living Status: Hx Family Neurologic Disorders: Yes (aneurysm , stroke) Mother Living Status: Hx Family Respiratory Disorders: Yes (TB) Sister Living Status: Still Living Internal Medicine - H&P: Meds Aspirin 81 mg PO HS 11/13/16 [History] Furosemide [Lasix] 20 mg PO DAILY 11/13/16 [History] Gabapentin 600 mg PO Q6H 11/13/16 [History] Levothyroxine Sodium 100 mcg PO QAM 11/13/16 [History] Lisinopril 40 mg PO HS 11/13/16 [History] Metformin HCl 1,000 mg PO BID 11/13/16 [History] Multivitamin [One Daily Multivitamin] 1 each PO HS 11/13/16 [History] Sertraline [Zoloft] 50 mg PO DAILY 11/13/16 [History] Zolpidem [Ambien] 10 mg PO HS PRN 11/13/16 [History] Atorvastatin Calcium [Lipitor] 20 mg PO HS 04/17/17 [History] Oxybutynin [Ditropan] 5 mg PO BID 06/18/17 [History] Calcium Carb/D3/Magnesium/Zinc [Arthur Mag Zinc + D Tablet] 1 tab PO DAILY [History] Cholecalciferol (D-3) [Vitamin D] 1,000 unit PO DAILY 08/08/17 [History] Cholestyramine [Cholestyramine] 1 packet PO BID 08/08/17 [History] Pantoprazole Sodium 40 mg PO DAILY 08/08/17 [History] Cyclobenzaprine [Flexeril] 0.5 - 1 tab PO TID PRN 12/14/17 [History] Meloxicam [Meloxicam] 15 mg PO DAILY 12/14/17 [History] Sucralfate [Carafate] 1 gm PO TID 12/14/17 [History] 3 Allergy/AdvReac Type Severity Reaction Status Date / Time ayana flavor Allergy Swelling Verified 12/14/17 10:55 of Lip/Tongue/Throat Sulfa (Sulfonamide AdvReac Unknown See Verified 12/14/17 10:55 Antibiotics) Comments All Systems PM: A 10-system review of systems was performed and is negative for pertinent findings except as documented above in the HPI. Review of systems: All the systems are reviewed everything is benign except the systems and symptoms I mentioned in the history of present illness - Constitutional Vitals: Temp Pulse Resp BP Pulse Ox 99.1 F 57 18 175/82 98 12/14/17 09:48 12/14/17 12:03 12/14/17 12:03 12/14/17 12:03 12/14/17 13:31 General appearance: Present: A&O X 3, no acute distress, answers questions appropriately - Head Head exam: Present: atraumatic, normal inspection - Neck Neck exam general surgery: Present: supple - Respiratory Respiratory exam: Present: decreased breath sounds. Absent: rales, respiratory distress, rhonchi, wheezes - Cardiovascular Cardiovascular exam: Present: RRR, +S1, +S2. Absent: tachycardia - GI/Abdominal GI/Abdominal exam: Present: normal bowel sounds, soft. Absent: rebound, rigid, tenderness - Extremities Exam Extremities exam: Absent: calf tenderness, pedal edema, tenderness - Back Exam Back exam: Absent: CVA tenderness (L), CVA tenderness (R) - Neurological Exam Neurological exam: Present: alert, oriented X3 - Psychiatric Psychiatric exam: Present: normal affect, normal mood - Skin Skin exam: Present: rash Internal Med - H&P Results - Labs CBC & Chem 7: 12/14/17 10:23 12/14/17 10:23
[2017-12-14] MEDS: Gabapentin 300 MG CAPSULE PO SCH ×3 (14:08→23:54)
[2017-12-14] MEDS: Sucralfate 1 GM TABLET PO SCH ×2 (14:08→22:06)
[2017-12-14] MEDS ORDERED: *HR* Dextrose 50 % in Water (Syg) 50 ML SYRINGE IVP PRN (17:26)
[2017-12-14] MEDS ORDERED: D5% in Water 1,000 ML IVC PRN (17:26)
[2017-12-14] MEDS ORDERED: Dextrose Gel 15 GM/37.5 ML TUBE PO PRN ×2 (17:26)
[2017-12-14] MEDS: Insulin LISPRO 300 UNITS/3 ML VIAL SQ SCH (17:56)
[2017-12-14] MEDS ORDERED: Lisinopril 20 MG TABLET PO SCH (21:00)
[2017-12-14] MEDS ORDERED: Multivit/Ca/Min/Fe/FA 1 TAB TABLET PO SCH (21:00)
[2017-12-14] MEDS ORDERED: Insulin LISPRO 300 UNITS/3 ML VIAL SQ SCH (21:00)
[2017-12-14] MEDS ORDERED: Aspirin 81 MG TAB.CHEW PO SCH (21:00)
[2017-12-14] MEDS ORDERED: Cholestyramine 4 GM POWD.PACK PO SCH (21:00)
[2017-12-15] MEDS: Gabapentin 300 MG CAPSULE PO SCH ×2 (06:00→12:05)
[2017-12-15] MEDS ORDERED: Insulin LISPRO 300 UNITS/3 ML VIAL SQ SCH (07:30)
[2017-12-15] MEDS ORDERED: Regadenoson 0.4 MG/5 ML SYRINGE IVP ONE (08:20)
[2017-12-15] MEDS ORDERED: Cholecalciferol (D-3) 1,000 UNIT TABLET PO SCH ×2 (09:00)
[2017-12-15] MEDS ORDERED: Furosemide 20 MG TABLET PO SCH (09:00)
[2017-12-15] MEDS: Insulin LISPRO 300 UNITS/3 ML VIAL SQ SCH ×2 (11:18→12:15)
[2017-12-15 11:19] VITALS: BP 162/82
[2017-12-15] MEDS: Sucralfate 1 GM TABLET PO SCH (11:23)
--- NOTE | 2017-12-15 12:37 | Electrocardiograph Report ---
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
--- NOTE | 2017-12-15 14:09 | Discharge Summary ---
- NOTES TO OUTPATIENT PROVIDER Notes to Outpatient Provider: f/u PCP, under great deal of stress per patient report Orders not resulted at time of discharge: Pending orders 12/14/17 13:34 NM paige perf SPECT multi [NM] Routine Date of Encounter: 12/15/17 Time of Encounter: 14:07 - Discharge Diagnosis (1) Stress at home Priority: Primary Status: Acute Comments: Patient states she is under great deal stress in her life. Advised her to follow-up with her primary care physician for follow-up on this problem We will provide Xanax 0.25 twice a day when necessary until seen by her provider (2) Chest pain Priority: Primary Status: Acute Comments: Patient presented with chest pain and was admitted to telemetry for observation. Troponins were negative. EKG showed a normal sinus rhythm and no acute ischemic changes. She was given aspirin and nitroglycerin when necessary for pain. Stress test was negative for ischemia or infarct. 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 Goins is a 72 year old female with known past medical history of hypertension, diabetes type 2, hyperlipidemia, chronic tobacco dependence and previous stoke who presented to emergency room with left shoulder pain and intermittent left chest wall pain for duration of over 1 week. She reported to me that she is under a great deal of stress. Her chest pain was sharp and nonradiating intermittent 6 out of 10 in severity. She continues to smoke 2-3 packs per week. Troponins were negative stress test was completed with no ischemia or infarct. She will be discharged home and should follow-up with her primary care physician regarding her anxiety disorder with her stress in her life. Provided Xanax 0.25 twice a day for 7 days as needed for anxiety. Also smoking cessation has been advised. Discharge discussed with: patient, nurse Time spent discussing smoking cessation with patient: 3 to 10 minutes - Time Spent with Patient Total time spent providing and/or coordinating discharge services: Less than 30 minutes - Discharge Medications Prescriptions: ALPRAZolam [Xanax 0.25 MG Tablet] 0.25 mg PO BID PRN 7 Days #14 tablet PRN Reason: Anxiety Home Medications: Aspirin 81 mg PO HS 11/13/16 [History] Furosemide [Lasix] 20 mg PO DAILY 11/13/16 [History] Gabapentin 600 mg PO Q6H 11/13/16 [History] Levothyroxine Sodium 100 mcg PO QAM 11/13/16 [History] Lisinopril 40 mg PO HS 11/13/16 [History] Metformin HCl 1,000 mg PO BID 11/13/16 [History] Multivitamin [One Daily Multivitamin] 1 each PO HS 11/13/16 [History] Sertraline [Zoloft] 50 mg PO DAILY 11/13/16 [History] Zolpidem [Ambien] 10 mg PO HS PRN 11/13/16 [History] Atorvastatin Calcium [Lipitor] 20 mg PO HS 04/17/17 [History] Oxybutynin [Ditropan] 5 mg PO BID 06/18/17 [History] Calcium Carb/D3/Magnesium/Zinc [Arthur Mag Zinc + D Tablet] 1 tab PO DAILY [History] Cholecalciferol (D-3) [Vitamin D] 1,000 unit PO DAILY 08/08/17 [History] Cholestyramine 1 packet PO BID 08/08/17 [History] Pantoprazole Sodium 40 mg PO DAILY 08/08/17 [History] Cyclobenzaprine [Flexeril] 0.5 - 1 tab PO TID PRN 12/14/17 [History] Meloxicam 15 mg PO DAILY 12/14/17 [History] Sucralfate [Carafate] 1 gm PO TID 12/14/17 [History] ALPRAZolam [Xanax 0.25 MG Tablet] 0.25 mg PO BID PRN 7 Days #14 tablet 12/15/17 [Rx] Allergies/Adverse Reactions: 3 Allergy/AdvReac Type Severity Reaction Status Date / Time ayana flavor Allergy Swelling Verified 12/14/17 10:55 of Lip/Tongue/Throat Sulfa (Sulfonamide AdvReac Unknown See Verified 12/14/17 10:55 Antibiotics) Comments Date of admission: 12/14/17 12:08 Primary care physician: Zaki Brown, Discharging clinician: Kaylee Santana Anticipated date of discharge: 12/15/17 - Constitutional Vitals: Temp Pulse Resp BP Pulse Ox 97.8 F 66 16 162/82 97 12/15/17 11:17 12/15/17 11:17 12/15/17 11:17 12/15/17 11:17 12/15/17 11:17 General appearance: Present: cooperative, A&O X 3, pleasant, no acute distress, answers questions appropriately - Head Head exam: Present: atraumatic, normocephalic - Eye Eye exam: Present: PERRL, conjuntiva pink, sclera anicteric Pupils: Present: PERRL - Neck Neck exam general surgery: Present: supple, trachea midline. Absent: lymphadenopathy - Respiratory Respiratory exam: Present: CTAB. Absent: accessory muscle use, rales, rhonchi, wheezes - Cardiovascular Cardiovascular exam: Present: RRR, +S1, +S2. Absent: diastolic murmur, gallop, rubs, systolic murmur - GI/Abdominal GI/Abdominal exam: Present: normal bowel sounds, soft, no peritoneal signs. Absent: distended, tenderness - Extremities Exam Extremities exam: Present: warm, radial pulses palpable and symmetrical. Absent : calf tenderness, cyanotic, pedal edema - Neurological Exam Neurological exam: Present: CN II-XII intact, oriented X3, no focal deficits. Absent: pronater drift, facial droop, speech deficit - Skin Skin exam: Present: dry, intact, normal color, warm - Patient Status Disposition: Home, Self-Care Condition: Fair Functional capacity at discharge: independent ambulation Overall status at discharge: patient is progressing back to baseline - Discharge Instructions Follow Up With: Zaki Brown DO [Primary Care Provider] - - Diet and Activity Activity: resume usual activities as tolerated Diet: advance to your usual diet, diabetic diet, low fat, low cholesterol, low salt diet
== END 2017-12-15 14:16 | disposition home or self-care (01) ==
LOC: 3BNU 09:38 → EMEROO 09:38 → 3BNU 12:53
PROVIDERS: ADMIT Family Medicine; ATTEND Registered Nurse

== ENCOUNTER 2019-03-11 12:07 | Observation (INO) ==
[2019-03-11] MEDS ORDERED: *HR* OxyCODONE/APAP 5/325 TABLET PO ONE (13:07)
--- NOTE | 2019-03-11 13:32 | Emergency Department Note ---
Disposition Clinical Impression: Lumbar radiculopathy, Thoracic back pain, Other acute postprocedural pain, Right leg pain Disposition: Admitted As Inpatient Condition: Fair Forms: ED Satisfaction Letter Time of Disposition: 18:56 General Adult HPI - General Chief complaint: ED Back Pain/Injury Stated complaint: back pain post op Time Seen by Provider: 03/11/19 12:09 Source: patient, other Mode of arrival: other Limitations: no limitations Nursing Notes Reviewed: Yes Vital Signs Reviewed: Yes - History of Present Illness HPI Narrative: Patient presents emergency room from the operative suite where she was having a spinal procedure completed. During the procedure she had severe pain in her lower back and the numbness in her right leg. She has chronic issues in her right leg she felt that they are worse. The providers emergency room for monitoring and repeat neurologic evaluation. 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 Location: lower extremity Radiation: non-radiation Pain Severity: moderate Pain Scale: 0 Quality: stabbing, aching Consistency: constant Improves with: rest Worsens with: movement Associated symptoms: Reports: denies other symptoms Treatments Prior to Arrival: none - Related Data Home Medications Medication Instructions Recorded Confirmed Aspirin 81 mg PO HS 11/13/16 12/14/17 Furosemide [Lasix] 20 mg PO DAILY 11/13/16 12/14/17 Gabapentin 600 mg PO Q6H 11/13/16 12/14/17 Levothyroxine Sodium 100 mcg PO QAM 11/13/16 12/14/17 Lisinopril 40 mg PO HS 11/13/16 12/14/17 Metformin HCl 1,000 mg PO BID 11/13/16 12/14/17 Multivitamin [One Daily 1 each PO HS 11/13/16 12/14/17 Multivitamin] Sertraline [Zoloft] 50 mg PO DAILY 11/13/16 12/14/17 Zolpidem [Ambien] 10 mg PO HS PRN 11/13/16 12/14/17 Atorvastatin Calcium [Lipitor] 20 mg PO HS 04/17/17 12/14/17 Oxybutynin [Ditropan] 5 mg PO BID 06/18/17 12/14/17 Calcium Carb/D3/Magnesium/Zinc 1 tab PO DAILY 08/08/17 12/14/17 [Arthur Mag Zinc-D Tablet] Cholecalciferol (D-3) [Vitamin D] 1,000 unit PO DAILY 08/08/17 12/14/17 Cholestyramine 1 packet PO BID 08/08/17 12/14/17 Pantoprazole Sodium 40 mg PO DAILY 08/08/17 12/14/17 Cyclobenzaprine [Flexeril] 0.5 - 1 tab PO TID PRN 12/14/17 12/14/17 Meloxicam 15 mg PO DAILY 12/14/17 12/14/17 Sucralfate [Carafate] 1 gm PO TID 12/14/17 12/14/17 Previous Rx's Medication Instructions Recorded ALPRAZolam [Xanax 0.25 MG Tablet] 0.25 mg PO BID PRN 7 Days #14 12/15/17 tablet Allergies Allergy/AdvReac Type Severity Reaction Status Date / Time ayana flavor Allergy Swelling Verified 03/11/19 12:18 of Lip/Tongue/Throat Sulfa (Sulfonamide AdvReac Unknown See Verified 03/11/19 12:18 Antibiotics) Comments All systems ED: reviewed and negative except as stated. Review of Systems: As Per HPI Constitutional: Denies: fever Cardiovascular: Denies: chest pain, palpitations, dyspnea on exertion, orthopnea Respiratory: Denies: cough, dyspnea, wheezes Gastrointestinal: Denies: nausea, vomiting, diarrhea Genitourinary: Denies: urgency, dysuria Musculoskeletal: Reports: back pain, other. Denies: neck pain Integumentary: Denies: rash Neurological: Denies: headache Psychiatric: Denies: anxiety, depression Past Medical History - Past Medical History Attestation: Yes The following information was validated with the patient. Source: patient Medical history: Reports: arthritis, CVA, diabetes, hyperlipidemia, hypertension, renal disease, thyroid disease, TIA, other Surgical history: Reports: cholecystectomy, knee replacement, orthopedic, other, other Psychiatric history: Reports: depression - Social History Smoking Status: Current every day smoker Smokeless Tobacco Status: No Alcohol use: Reports: none Drug use: Reports: none Physical Exam - General Limitations: no limitations General appearance: alert - Head Head exam: atraumatic, normocephalic, normal inspection - ENT ENT exam: normal exam, normal oropharynx, mucous membranes moist - Neck Neck exam: Present: normal inspection, full ROM, trachea midline. Absent: tenderness, lymphadenopathy - Chest Chest inspection: Present: normal inspection, symmetric chest wall rise. Absent: tenderness - Respiratory Respiratory exam: Present: normal lung sounds bilaterally - Cardiovascular Cardiovascular exam: Present: regular rate, normal rhythm, normal heart sounds - Abdominal Exam Abdominal exam: Present: soft, Non-Tender, normal bowel sounds. Absent: tenderness, distention, guarding, rebound, rigidity, diminished bowel sounds, Bear's sign, Rovsing's sign, tenderness at McBurney's Point - Extremities Exam Extremities exam: Present: normal inspection, full ROM, normal capillary refill. Absent: tenderness - Back Exam Back exam: Present: tenderness, straight leg raise (R) - Neurological Exam Neurological exam: Present: alert, oriented X3, CN II-XII intact, normal gait - Skin Skin exam: Present: warm, dry, intact, normal color Course Course Narrative: 73-year-old female presents emergency room after having significant pain in her right lower leg along with numbness all having a spine sheet are completed. Patient is being treated by pain management including injections and spinal canal to look for any signs of significant stenosis or high-grade lesions. 45 mL of fluid was infused into the spinal canal and the patient had acute onset of pain and discomfort in her right leg. She does have chronic pain and discomfort in her right leg is worse here today. She is describing significant numbness and weakness. Rectal tone was collected up by the outside physician that appears to be appropriate. Patient did not have any bowel or bladder incontinence. Denies any other symptoms or issues. All the events here today appear to be secondary to the procedure. The physician Dr. Delacruz recommended that if the patient's symptoms were not resolving back towards baseline after the fluid was absorbed that we should repeat the MRI imaging of her back to rule out any acute changes or abnormality. Patient is otherwise resting comfortably in the bed. Pain is present with movement of the lower legs which otherwise his sensation that is resolving at this point along with motor function that is coming back to baseline. Patient has no other visible signs of rash trauma injury or abnormality to lower extremities. Posterior aspect of her back will be evaluated once pain is better controlled. Lungs are clear heart is regular abdomen is soft. No other labs imaging or workup required at this time. Symptomatic management will be evaluated. Her neurologic evaluation appears to be consistent with what was described from the operative physician and appears to be resolving at this point. Patient is otherwise stable. Disposition pending. - Reevaluation(s) Reevaluation #1: MRI was completed secondary the patient's persistent pain. IV access was obtained and labs were collected. The MRI does not show any acute findings. Conversation was had with the on-call pain management physician Dr. Delacruz. He reviewed the case as well. He did not see any acute issues noted. Lengthy discussion was had with the patient about potential admission secondary to her inability to care for herself at home from the pain. Patient is thinking on this at this time. We will continue to monitor here until disposition is determined. Repeat dose of pain medication as been provided. See him is noted to be 5.60 and EKG will be collected fluid hydration will be given. Patient is unable to walk safely at home. She has fallen several times over the last weeks. Patient has significant pain and discomfort. Patient will be admitted at this time for symptomatic control and rehabilitation evaluation. I did discuss this with the hospitalist Dr. Leon. No other recommendations or concerns are noted. Patient is been provided with fluids at the request of the hospitalist as well as secondary to the potassium. No other acute concerns. Patient is otherwise stable. She will be monitored here in emergency department until the admission process is completed. Time: 18:53 Vital Signs Temperature 98.5 F 03/11/19 12:19 Pulse Rate 69 03/11/19 12:19 Respiratory Rate 15 03/11/19 12:19 Blood Pressure 124/49 03/11/19 12:19 O2 Sat by Pulse Oximetry 98 03/11/19 12:19 Temperature 98.5 F 03/11/19 12:19 Pulse Rate 69 03/11/19 12:19 Respiratory Rate 15 03/11/19 12:19 Blood Pressure 124/49 03/11/19 12:19 O2 Sat by Pulse Oximetry 98 03/11/19 12:19 Oxygen Delivery Oxygen Delivery Room Air Medical Decision Making - MDM Narrative Medical decision making narrative: Postoperative pain. Cannot walk. - Medical Records Medical records reviewed: Yes I reviewed the patient's medical records. - Lab Data Lab results reviewed: Yes I reviewed the patient's lab results. Result diagrams: 03/11/19 14:26 03/11/19 14:26 Lab Results 03/11/19 03/11/19 03/11/19 Range/Units 14:26 14:26 14:26 WBC 11.4 H (4.3-11.1) K/mcL RBC 4.33 (3.82-4.97) M/mcL Hgb 13.6 (11.5-15.4) g/dL Hct 40.7 (35.3-44.9) % MCV 94.0 (83.0-100.0) fL MCH 31.4 (28.0-33.3) pg MCHC 33.4 (31.6-35.5) g/dL RDW 13.8 (11.5-14.5) % Plt Count 258 (140-400) K/mcL MPV 10.2 (9.4-12.4) fL Immature Gran % 0.2 (0-4) % Seg Neutrophils % 61.2 % Lymphocytes % 25.3 % Monocytes % 6.2 % Eosinophils % 6.1 % Basophils % 1.0 % Neutrophils # 7.0 (1.6-8.9) K/mcL Lymphocytes # 2.9 (0.6-4.6) K/mcL Monocytes # 0.7 (0.0-1.3) K/mcL Eosinophils # 0.7 H (0.0-0.6) K/mcL Basophils # 0.1 (0.0-0.2) K/mcL PT 10.7 (9.4-12.1) Seconds INR 1.0 APTT 30.0 (26.0-36.0) Seconds Sodium 134 L (136-145) mEq/L Potassium 5.6 H (3.5-5.1) mEq/L Chloride 100 (98-107) mEq/L Carbon Dioxide 24 (23-29) mEq/L BUN 18 (8-23) mg/dL Creatinine 1.25 H (0.60-1.20) mg/dL Est GFR ( Amer) 51 L (> 60) Est GFR (Non-Af Amer) 42 L (> 60) BUN/Creatinine Ratio 14 (6-26) Glucose 137 H (70-105) mg/dL Calculated Osmolality 282 (280-300) Calcium 9.8 (8.6-10.3) mg/dL - Radiology Data Radiology results reviewed: Yes I reviewed the patient's radiology results. MRIs were reviewed. Chronic findings noted. No acute changes. - EKG Data EKG #1 EKG attestation: Yes I reviewed and interpreted this EKG. EKG results narrative: EKG shows sinus rhythm. Heart rate of 65. CT interval 179. QRS duration of 85. QTC of 431. [place] appears to be normal. No acute signs of ST segment elevation or abnormality. No acute signs of WPW or Brugada syndrome. Comparable EKG was reviewed from 12/14/17 with no acute changes.
[2019-03-11] MEDS ORDERED: Gadolinium Contrast Agent (WT Based) IV PRN (14:15)
[2019-03-11 14:39] LABS: Basophils # 0.1 K/mcL (0.0-0.2); Eosinophils # 0.7 K/mcL (0.0-0.6); Eosinophils % 6.1 %; Hematocrit 40.7 % (35.3-44.9); Hemoglobin 13.6 g/dL (11.5-15.4); Immature Granulocytes % 0.2 % (0-4); Lymphocytes # 2.9 K/mcL (0.6-4.6); Lymphocytes % 25.3 %; Mean Corpuscular HGB Conc 33.4 g/dL (31.6-35.5); Mean Corpuscular Hemoglobin 31.4 pg (28.0-33.3); Mean Platelet Volume 10.2 fL (9.4-12.4); Monocytes # 0.7 K/mcL (0.0-1.3); Monocytes % 6.2 %; Platelet Count 258 K/mcL (140-400); Red Blood Count 4.33 M/mcL (3.82-4.97); Red Cell Distribution Width 13.8 % (11.5-14.5); Segmented Neutrophils % 61.2 %; White Blood Count 11.4 K/mcL (4.3-11.1)
[2019-03-11 14:46] LABS: Prothrombin Time 10.7 Seconds (9.4-12.1)
[2019-03-11 15:21] LABS: Calcium 9.8 mg/dL (8.6-10.3); Potassium 5.6 mEq/L (3.5-5.1)
[2019-03-11] MEDS ORDERED: 0.9 % Sodium Chloride 1,000 ML IVC ONE (18:05)
[2019-03-11] MEDS ORDERED: *HR* FentaNYL (PF) 100 MCG/2 ML VIAL EP ONE (18:05)
[2019-03-11] MEDS ORDERED: *HR* HYDROmorphone (PF) 1 MG/ML SYRINGE IVP ONE (19:54)
[2019-03-11] MEDS ORDERED: *HR* OxyCODONE ER (12 HR) 10 MG TABLET PO ONE (20:11)
[2019-03-11] MEDS ORDERED: Ketorolac 30 MG/ML VIAL IVP ONE (20:13)
[2019-03-11] MEDS ORDERED: *HR* OxyCODONE Immed Rel 5 MG TABLET PO PRN (20:14)
[2019-03-11] MEDS ORDERED: *HR* Dextrose 50 % in Water (Syg) 50 ML SYRINGE IVP PRN (20:14)
[2019-03-11] MEDS ORDERED: Naloxone 0.4 MG/ML INJ IVP PRN (20:14)
[2019-03-11] MEDS ORDERED: Dextrose Gel 15 GM/37.5 ML TUBE PO PRN ×2 (20:14)
[2019-03-11] MEDS ORDERED: Acetaminophen 325 MG TABLET PO PRN (20:14)
[2019-03-11] MEDS ORDERED: 0.9 % Sodium Chloride 1,000 ML IVC SCH (20:15)
--- NOTE | 2019-03-11 20:45 | Internal Med History&Physical ---
Date of Encounter: 03/11/19 Time of Encounter: 20:45 Internal Medicine - H&P: HPI Chief complaint: leg pain Admitted From: Home Plans for Post Hospital Care: Home History of present illness: Melinda Goins is a 73 year old woman with hypertension and diabetes who has been managing lumbar radiculopathy at the pain management clinic and was scheduled today to undergo therapeutic steroid injection into the epidural space of her lumbar spine. The procedure apparently went without incident however she subsequently developed severe pain in her low back and numbness in her right leg so she was rest to the emergency room from the operative suite. She underwent urgent MRI which only showed chronic changes however due to the severity of pain, paresthesias and an inability to ambulate was decided she be admitted for observation. Her pain was rebellious to fentanyl and hydromorphone. At the time of my assessment she says she chronically has issues with her right leg and ambulates with a walker due to gait instability however the severity of the pain she has developed now after the procedure as the most exquisite she has ever had. She says the pain shoots down from her groin down to her foot. She maintains bowel and bladder continence. Family history reviewed and found non-contributory. Vitals: Reviewed General: well developed white woman lying in bed in no acute distress. Skin: Warm and dry. HEENT: Moist mucous membranes. No conjunctivae pallor. Neck: No lymphadenopathy. No JVD. No carotid bruits. No palpable thyroid. Chest: Normal thoracic expansion. Normal breath sounds. Clear to auscultation. Heart: Normal S1 & S2; rhythmic. No rubs or murmurs. Abdomen: Non-distended, soft and non-tender to palpation. No peritoneal reaction. Extremities: No clubbing, cyanosis or edema. No calf tenderness. Normal distal pulses. Unable to lift her right leg greater than 15 degrees as it is limited by pain. Decreased sensation of the right leg. Neurological: Awake, alert and oriented to person, place and time. No focal deficits. Psych: Affect appropriate. Assessment/Plan 1. Lumbar radiculopathy: Seemingly exacerbated after the epidural injection. Will provide pain control measures as needed, close monitoring for worsening of her neurologic signs and that warrant an follow up imaging study in the next 24 hours. She may require rehabilitation services. 2. Acute kidney injury: Will provide fluid resuscitation and recheck. 3. Hypertension: Resume home antihypertensive therapy. 4. Diabetes: Place on insulin sliding scale. Past Med Surg Social Fam HX - Past Medical History Medical history: arthritis, CVA, diabetes, hyperlipidemia, hypertension, renal disease, thyroid disease, TIA, other Additional medical history: skin lupus Psychiatric history: depression - Past Surgical History Surgical History: cholecystectomy, knee replacement, orthopedic, other, other Additional surgical history: back,dwayne knee replacement,right shoulder replacement, tubal - Social History Smoking Status: Current every day smoker Smokeless Tobacco Status: No Alcohol use: none Drug use: none - Family History Father Living Status: Hx Family Neurologic Disorders: Yes (aneurysm , stroke) Mother Living Status: Hx Family Respiratory Disorders: Yes (TB) Sister Living Status: Still Living Internal Medicine - H&P: Meds Aspirin 81 mg PO HS 11/13/16 [History] Furosemide [Lasix] 20 mg PO DAILY 11/13/16 [History] Gabapentin 1,200 mg PO BID 11/13/16 [History] Multivitamin [One Daily Multivitamin] 1 each PO DAILY 11/13/16 [History] Sertraline [Zoloft] 50 mg PO DAILY 11/13/16 [History] Zolpidem [Ambien] 10 mg PO HS PRN 11/13/16 [History] Atorvastatin Calcium [Lipitor] 20 mg PO DAILY 04/17/17 [History] Calcium Carb/D3/Magnesium/Zinc [Arthur Mag Zinc-D Tablet] 1 tab PO DAILY 08/08/17 [History] Cholecalciferol (D-3) [Vitamin D] 1,000 unit PO DAILY 08/08/17 [History] Pantoprazole Sodium 40 mg PO HS 08/08/17 [History] Meloxicam 15 mg PO DAILY 12/14/17 [History] Sucralfate [Carafate] 1 gm PO TID 12/14/17 [History] Albuterol Sulfate [Ventolin Hfa] 2 puff IH Q6H PRN 03/11/19 [History] Cyclobenzaprine HCl 5 mg PO BID PRN 03/11/19 [History] GlipiZIDE [Glipizide Xl] 5 mg PO DAILY 03/11/19 [History] Levothyroxine [Synthroid] 125 mcg PO 0630 03/11/19 [History] Lisinopril [Zestril] 40 mg PO HS 03/11/19 [History] Metformin HCl 1,000 mg PO BID 03/11/19 [History] Mirabegron [Myrbetriq] 50 mg PO DAILY 03/11/19 [History] Allergy/AdvReac Type Severity Reaction Status Date / Time ayana flavor Allergy Swelling Verified 03/11/19 12:18 of Lip/Tongue/Throat Sulfa (Sulfonamide AdvReac Unknown See Verified 03/11/19 12:18 Antibiotics) Comments All Systems PM: A 10-system review of systems was performed and is negative for pertinent findings except as documented above in the HPI. - Constitutional Vitals: Temp Pulse Resp BP Pulse Ox 98.5 F 84 20 116/67 99 03/11/19 12:19 03/11/19 19:45 03/11/19 19:45 03/11/19 19:45 03/11/19 19:45 Exam: . Internal Med - H&P Results - Labs CBC & Chem 7: 03/11/19 14:26 03/11/19 14:26 Labs: Short CBC 03/11/19 Range/Units 14:26 WBC 11.4 H (4.3-11.1) K/mcL Hgb 13.6 (11.5-15.4) g/dL Hct 40.7 (35.3-44.9) % Plt Count 258 (140-400) K/mcL Neutrophils # 7.0 (1.6-8.9) K/mcL BMP 03/11/19 14:26 Sodium 134 L Potassium 5.6 H Chloride 100 Carbon Dioxide 24 BUN 18 Creatinine 1.25 H Glucose 137 H Calcium 9.8 - Impressions ITS Impressions Lumbar Spine MRI 03/11/19 14:15 IMPRESSION: Unchanged appearance of the large disc herniation at L2-L3, with superior and inferior migration and severe spinal canal stenosis. Severe bilateral lateral recess stenosis. Mass effect on the cauda equina at this level. Anterior epidural enhancement centered around the large disc herniation at L2-L3 is favored to be reactive or degenerative given anterior location, and no significant posterior epidural enhancement. Epidural phlegmon is not favored. No discrete epidural abscess is identified. Scattered areas of enhancement within the posterior subcutaneous tissue extending from L2 through L5. These are either degenerative, or likely secondary to procedure. No discrete drainable abscess identified at this time. Additional multilevel degenerative changes with additional significant spinal canal stenosis as detailed above. No significant interval change since 02/11/2019. D/ / 03/11/2019 17:43:17 Farhad Lerner MD / [email or web address] Interpreting Provider: Farhad Lerner MD Thoracic Spine MRI 03/11/19 14:15 IMPRESSION: No evidence of discitis or osteomyelitis. No evidence of epidural abscess. No significant spinal canal stenosis. No significant neural foraminal stenosis. No convincing evidence of abnormal contrast enhancement. Possible cholelithiasis. D/ / 03/11/2019 17:45:59 Farhad Lerner MD / [email or web address] Interpreting Provider: Farhad Lerner MD - Time Spent With Patient Total time spent is greater than 50% in coordination of care (as documented) at patient's floor/unit and/or counseling patient: Greater than 35 minutes
[2019-03-11] MEDS ORDERED: NON-FORMULARY MEDICATION 1 EACH EACH (Lisinopril [Zestril] 40 MG) PO SCH (21:00)
[2019-03-11] MEDS: Gabapentin 300 MG CAPSULE PO SCH (21:48)
[2019-03-11] MEDS: Aspirin 81 MG TAB.CHEW PO SCH (21:48)
[2019-03-11] MEDS: Sucralfate 1 GM TABLET PO SCH (21:49)
[2019-03-11] MEDS: Insulin LISPRO 300 UNITS/3 ML VIAL SQ SCH (22:42)
[2019-03-12 03:18] LABS: Basophils # 0.1 K/mcL (0.0-0.2); Basophils % 0.7 %; Eosinophils # 0.3 K/mcL (0.0-0.6); Eosinophils % 3.1 %; Hematocrit 35.5 % (35.3-44.9); Immature Granulocytes % 0.3 % (0-4); Lymphocytes # 2.5 K/mcL (0.6-4.6); Lymphocytes % 26.1 %; Mean Corpuscular HGB Conc 32.4 g/dL (31.6-35.5); Mean Corpuscular Hemoglobin 31.2 pg (28.0-33.3); Mean Corpuscular Volume 96.2 fL (83.0-100.0); Mean Platelet Volume 10.4 fL (9.4-12.4); Monocytes # 0.6 K/mcL (0.0-1.3); Monocytes % 6.7 %; Platelet Count 218 K/mcL (140-400); Red Blood Count 3.69 M/mcL (3.82-4.97); Red Cell Distribution Width 13.6 % (11.5-14.5); Segmented Neutrophils % 63.1 %; White Blood Count 9.5 K/mcL (4.3-11.1)
[2019-03-12 03:28] LABS: BUN/Creatinine Ratio 21 (6-26); Blood Urea Nitrogen 18 mg/dL (8-23); Calcium 8.5 mg/dL (8.6-10.3); Carbon Dioxide 23 mEq/L (23-29); Chloride 106 mEq/L (98-107); Glucose 177 mg/dL (70-105); Osmolality,Calculated 286 (280-300); Potassium 4.8 mEq/L (3.5-5.1); Sodium 135 mEq/L (136-145); eGFR For African Americans > 60 (> 60); eGFR For Non-African Americans > 60 (> 60)
[2019-03-12 05:41] LABS: Hemoglobin 11.5 g/dL (11.5-15.4)
[2019-03-12 05:44] LABS: Platelet Estimate Normal (Normal); Reactive Lymphocytes Present (Not Present)
[2019-03-12] MEDS ORDERED: *HR* Heparin 5,000 UNIT/ML VIAL SQ SCH (06:00)
[2019-03-12] MEDS: Furosemide 20 MG TABLET PO SCH (07:59)
[2019-03-12] MEDS: Cholecalciferol (D-3) 1,000 UNIT TABLET PO SCH (07:59)
[2019-03-12] MEDS: Gabapentin 300 MG CAPSULE PO SCH ×2 (07:59→21:36)
[2019-03-12] MEDS: Sucralfate 1 GM TABLET PO SCH ×3 (07:59→16:53)
[2019-03-12] MEDS: Multivit/Ca/Min/Fe/FA 1 TAB TABLET PO SCH (07:59)
[2019-03-12] MEDS: Insulin LISPRO 300 UNITS/3 ML VIAL SQ SCH ×4 (08:00→21:37)
[2019-03-12] MEDS: *HR* HYDROcodone/Acet 5/325 mg TABLET PO PRN (08:09)
[2019-03-12] MEDS: Mirabegron [Myrbetriq] 50 MG PO SCH (09:43)
--- NOTE | 2019-03-12 16:50 | Electrocardiograph Report ---
[place] [id number] Test Date: 2019-03-11 Pat Name: Melinda Goins Department: [id number] Room: [facility] Gender: F Scientific Illustrator: : 1945 Requested By: Nam Mckeon Order Number: [id number] Reading MD: Michoacano Devries Measurements Intervals [place] Rate: 65 P: 60 [place]: 179 QRS: 47 QRSD: 85 T: 69 QT: 414 QTc: 431 Interpretive Statements Sinus rhythm Electronically Signed On 03-12-2019 16:49:01 EDT by Michoacano Devries
[2019-03-12] MEDS: *HR* Heparin 5,000 UNIT/ML VIAL SQ SCH (16:53)
--- NOTE | 2019-03-12 17:41 | Internal Med Progress Note ---
Hospitalist Progress Note - Encounter Date of Encounter: 03/12/19 Time of Encounter: 09:00 - Subjective Interval History: Ms Goins is currently in observation for back and R leg pain. She remains moderate distress at this time. Ms Goins is still having pain in her back and R leg. No fever or chills. Has not gotten up and has a gonsalves. No CP or SOB. No bowel loss. - Exam Vitals: Temp Pulse Resp BP Pulse Ox 98 F 73 18 154/70 96 03/12/19 15:35 03/12/19 15:35 03/12/19 15:35 03/12/19 15:35 03/12/19 15:35 Exam: General: Alert and oriented. Comfortable at this time. Skin: Normal color, no rash, H: Normocephalic. EENT: EOMI, pupils equal. Mucus membranes moist. Cardiovascular: Normal S1 & S2, no murmurs . Pulse regular. Not tachycardic Lungs: Normal breath sounds, no wheezes or crackles. Abdomen: Soft, non-tender, Normal bowel sounds. Extremities: No deformity, no edema Neurological: Normal cognition. Decreased strength on R leg due to pain. Pulses: radial pulses normal +2. Rest of the physical exam is non contributory - Assessment and Plan (1) Lumbar radiculopathy Current Visit: Yes Status: Acute Assessment and Plan: Pt placed in observation yesterday after acute worsening of pain. Increase activity today. PT/OT evals. Continue pain management. (2) Right leg pain Current Visit: Yes Status: Acute Assessment and Plan: Radicular pain. Continue pain management. (3) HTN (hypertension) Current Visit: No Status: Chronic Assessment and Plan: Controlled at this time. Continue home meds as currently ordered. (4) DMII (diabetes mellitus, type 2) Current Visit: No Status: Chronic Assessment and Plan: Blood sugars fairly controlled at this time. (5) Hypothyroid Current Visit: No Status: Chronic Assessment and Plan: Continue home medication. - Time Spent with Patient Total time spent is greater than 50% in coordination of care (as documented) at patient's floor/unit and/or counseling patient: Internal Medicine: Result - Labs CBC & Chem 7: 03/12/19 02:33 03/12/19 02:33 Labs: Short CBC 03/12/19 Range/Units 02:33 WBC 9.5 (4.3-11.1) K/mcL Hgb 11.5 D (11.5-15.4) g/dL Hct 35.5 (35.3-44.9) % Plt Count 218 (140-400) K/mcL Neutrophils # 6.0 (1.6-8.9) K/mcL BMP 03/12/19 02:33 Sodium 135 L Potassium 4.8 Chloride 106 Carbon Dioxide 23 BUN 18 Creatinine 0.87 Glucose 177 H Calcium 8.5 L - ABG Interpretation ABG results: PT/INR, D-dimer PT 10.7 Seconds (9.4-12.1) 03/11/19 14:26 - Impressions Impressions Lumbar Spine MRI 03/11/19 14:15 IMPRESSION: Unchanged appearance of the large disc herniation at L2-L3, with superior and inferior migration and severe spinal canal stenosis. Severe bilateral lateral recess stenosis. Mass effect on the cauda equina at this level. Anterior epidural enhancement centered around the large disc herniation at L2-L3 is favored to be reactive or degenerative given anterior location, and no significant posterior epidural enhancement. Epidural phlegmon is not favored. No discrete epidural abscess is identified. Scattered areas of enhancement within the posterior subcutaneous tissue extending from L2 through L5. These are either degenerative, or likely secondary to procedure. No discrete drainable abscess identified at this time. Additional multilevel degenerative changes with additional significant spinal canal stenosis as detailed above. No significant interval change since 02/11/2019. D/ / 03/11/2019 17:43:17 Farhad Lerner MD / [email or web address] Interpreting Provider: Farhad Lerner MD Thoracic Spine MRI 03/11/19 14:15 IMPRESSION: No evidence of discitis or osteomyelitis. No evidence of epidural abscess. No significant spinal canal stenosis. No significant neural foraminal stenosis. No convincing evidence of abnormal contrast enhancement. Possible cholelithiasis. D/ / 03/11/2019 17:45:59 Farhad Lerner MD / [email or web address] Interpreting Provider: Farhad Lerner MD Consult Discharge Plan - Plan Referrals: NONE,PCP [Primary Care Provider] - (3) HTN (hypertension) Qualifiers: Hypertension type: essential hypertension Qualified Code(s): I10 - Essential (primary) hypertension (4) DMII (diabetes mellitus, type 2) Qualifiers: Diabetes mellitus chcf insulin use: without remote computer terminal operator use Diabetes mellitus complication status: with neurologic complications Diabetes mellitus complication detail: with polyneuropathy Qualified Code(s): E11.42 - Type 2 diabetes mellitus with diabetic polyneuropathy (5) Hypothyroid Qualifiers: Hypothyroidism type: acquired Qualified Code(s): E03.9 - Hypothyroidism, unspecified
[2019-03-12] MEDS ORDERED: Methocarbamol 750 MG TABLET PO ONE (20:13)
[2019-03-12] MEDS: Aspirin 81 MG TAB.CHEW PO SCH (21:36)
[2019-03-12] MEDS: Lisinopril 20 MG TABLET PO SCH (21:36)
[2019-03-13 04:43] LABS: Hematocrit 36.1 % (35.3-44.9); Hemoglobin 12.3 g/dL (11.5-15.4); Mean Corpuscular HGB Conc 34.1 g/dL (31.6-35.5); Mean Corpuscular Hemoglobin 31.3 pg (28.0-33.3); Mean Corpuscular Volume 91.9 fL (83.0-100.0); Mean Platelet Volume 10.3 fL (9.4-12.4); Platelet Count 230 K/mcL (140-400); Red Blood Count 3.93 M/mcL (3.82-4.97); Red Cell Distribution Width 13.2 % (11.5-14.5); White Blood Count 7.9 K/mcL (4.3-11.1)
[2019-03-13 05:02] LABS: BUN/Creatinine Ratio 19 (6-26); Blood Urea Nitrogen 13 mg/dL (8-23); Calcium 9.3 mg/dL (8.6-10.3); Carbon Dioxide 25 mEq/L (23-29); Chloride 106 mEq/L (98-107); Glucose 154 mg/dL (70-105); Magnesium 1.6 mg/dL (1.6-2.6); Osmolality,Calculated 285 (280-300); Potassium 4.4 mEq/L (3.5-5.1); Sodium 136 mEq/L (136-145); eGFR For African Americans > 60 (> 60); eGFR For Non-African Americans > 60 (> 60)
[2019-03-13] MEDS: *HR* Heparin 5,000 UNIT/ML VIAL SQ SCH ×2 (05:09→17:52)
[2019-03-13] MEDS: Insulin LISPRO 300 UNITS/3 ML VIAL SQ SCH ×4 (08:06→20:12)
[2019-03-13] MEDS: Furosemide 20 MG TABLET PO SCH (08:07)
[2019-03-13] MEDS: Cholecalciferol (D-3) 1,000 UNIT TABLET PO SCH (08:07)
[2019-03-13] MEDS: Gabapentin 300 MG CAPSULE PO SCH ×2 (08:07→20:08)
[2019-03-13] MEDS: Mirabegron [Myrbetriq] 50 MG PO SCH (08:07)
[2019-03-13] MEDS: Sucralfate 1 GM TABLET PO SCH ×3 (08:07→17:52)
[2019-03-13] MEDS: Multivit/Ca/Min/Fe/FA 1 TAB TABLET PO SCH (08:07)
--- NOTE | 2019-03-13 16:21 | Internal Med Progress Note ---
Hospitalist Progress Note - Encounter Date of Encounter: 03/13/19 Time of Encounter: 10:30 - Subjective Interval History: Ms Goins is currently in observation due to intractable back and R leg pain. She is awaiting SNF. She remains moderate risk at this time. Ms Goins is doing OK. She has been up out of bed some. No fever or chills. Wants gonsalves out. Takes med for bladder spasm at home. - Exam Vitals: Temp Pulse Resp BP Pulse Ox 97.8 F 64 16 134/83 96 03/13/19 16:00 03/13/19 16:00 03/13/19 16:00 03/13/19 16:00 03/13/19 16:00 Exam: General: Alert and oriented. Comfortable at this time. Skin: Normal color, no rash, H: Normocephalic. EENT: EOMI, pupils equal. Mucus membranes moist. Cardiovascular: Normal S1 & S2, no murmurs . Not tachycardic Lungs: Clear bilaterally. No wheeze or rales. Abdomen: Soft, non-tender, Normal bowel sounds. Extremities: No deformity, no edema Neurological: Normal cognition. Exam essentially same as yesterday. Pulses: radial pulses normal +2. Rest of the physical exam is non contributory - Assessment and Plan (1) Lumbar radiculopathy Current Visit: Yes Status: Acute Assessment and Plan: Pt placed in observation after acute worsening of pain. PT/OT rec SNF. SW consulted. Remove gonsalves today. (2) Right leg pain Current Visit: Yes Status: Acute Assessment and Plan: Radicular pain. Continue pain management. (3) HTN (hypertension) Current Visit: No Status: Chronic Assessment and Plan: Essentially controlled. (4) DMII (diabetes mellitus, type 2) Current Visit: No Status: Chronic Assessment and Plan: Blood sugars controlled at this time. (5) Hypothyroid Current Visit: No Status: Chronic Assessment and Plan: Continue home medication. - Time Spent with Patient Total time spent is greater than 50% in coordination of care (as documented) at patient's floor/unit and/or counseling patient: Internal Medicine: Result - Labs CBC & Chem 7: 03/13/19 04:30 03/13/19 04:30 Labs: Short CBC 03/13/19 Range/Units 04:30 WBC 7.9 (4.3-11.1) K/mcL Hgb 12.3 (11.5-15.4) g/dL Hct 36.1 (35.3-44.9) % Plt Count 230 (140-400) K/mcL BMP 03/13/19 04:30 Sodium 136 Potassium 4.4 Chloride 106 Carbon Dioxide 25 BUN 13 Creatinine 0.69 Glucose 154 H Calcium 9.3 - ABG Interpretation ABG results: PT/INR, D-dimer PT 10.7 Seconds (9.4-12.1) 03/11/19 14:26 Consult Discharge Plan - Plan Referrals: NONE,PCP [Primary Care Provider] - (3) HTN (hypertension) Qualifiers: Hypertension type: essential hypertension Qualified Code(s): I10 - Essential (primary) hypertension (4) DMII (diabetes mellitus, type 2) Qualifiers: Diabetes mellitus penitentiary insulin use: without termite treater helper use Diabetes mellitus complication status: with neurologic complications Diabetes mellitus complication detail: with polyneuropathy Qualified Code(s): E11.42 - Type 2 diabetes mellitus with diabetic polyneuropathy (5) Hypothyroid Qualifiers: Hypothyroidism type: acquired Qualified Code(s): E03.9 - Hypothyroidism, unspecified
[2019-03-13] MEDS: Aspirin 81 MG TAB.CHEW PO SCH (20:08)
[2019-03-13] MEDS: Lisinopril 20 MG TABLET PO SCH (20:09)
[2019-03-14] MEDS: *HR* HYDROcodone/Acet 5/325 mg TABLET PO PRN (02:57)
[2019-03-14] MEDS: *HR* Heparin 5,000 UNIT/ML VIAL SQ SCH ×2 (05:53→17:51)
[2019-03-14] MEDS: Mirabegron [Myrbetriq] 50 MG PO SCH (09:03)
[2019-03-14] MEDS: Gabapentin 300 MG CAPSULE PO SCH (09:06)
[2019-03-14] MEDS: Furosemide 20 MG TABLET PO SCH (09:06)
[2019-03-14] MEDS: Multivit/Ca/Min/Fe/FA 1 TAB TABLET PO SCH (09:06)
[2019-03-14] MEDS: Sucralfate 1 GM TABLET PO SCH ×3 (09:06→17:00)
[2019-03-14] MEDS: Cholecalciferol (D-3) 1,000 UNIT TABLET PO SCH (09:06)
[2019-03-14] MEDS: Insulin LISPRO 300 UNITS/3 ML VIAL SQ SCH ×3 (09:06→17:02)
--- NOTE | 2019-03-14 15:49 | Discharge Summary ---
- NOTES TO OUTPATIENT PROVIDER Notes to Outpatient Provider: Pt placed in observation for severe back pain. MRI negative. Discharged to SNF. Date of Encounter: 03/14/19 Time of Encounter: 13:35 - Discharge Diagnosis (1) Lumbar radiculopathy Priority: Primary Status: Acute (2) Right leg pain Priority: Secondary Status: Acute (3) HTN (hypertension) Priority: Secondary Status: Chronic Qualifiers: Hypertension type: essential hypertension Qualified Code(s): I10 - Essential (primary) hypertension (4) DMII (diabetes mellitus, type 2) Priority: Secondary Status: Chronic Qualifiers: Diabetes mellitus intermodal customer service insulin use: without intermodal customer service use Diabetes mellitus complication status: with neurologic complications Diabetes mellitus complication detail: with polyneuropathy Qualified Code(s): E11.42 - Type 2 diabetes mellitus with diabetic polyneuropathy (5) Hypothyroid Priority: Secondary Status: Chronic Qualifiers: Hypothyroidism type: acquired Qualified Code(s): E03.9 - Hypothyroidism, unspecified Hospital course: Ms. Goins is a 73 year old female with hx chronic back pain admitted from ED due to severe back and R leg pain. Ms Goins has hx of chronic back pain. She was in pain management when she developed severe pain after injection. She was taken to ED and had urgent MRI which was negative. She was placed in observation and evaluated by PT/OT. SNF recommended. Xie discontinued and she was able to urinate. She was approved for SNF. Today she is afebrile and ready for discharge. Discharge discussed with: patient - Time Spent with Patient Total time spent providing and/or coordinating discharge services: - Discharge Medications Prescriptions: New Gabapentin [Neurontin] 600 mg PO BID 2 Days #4 capsule HYDROcodone/Acet 5/325 mg [Otho 5-325 mg] 2 tab PO Q6HR PRN 1 Days #8 tablet PRN Reason: Moderate Pain Continued Sertraline [Zoloft] 50 mg PO DAILY Multivitamin [One Daily Multivitamin] 1 each PO DAILY Furosemide [Lasix] 20 mg PO DAILY Aspirin 81 mg PO HS Atorvastatin Calcium [Lipitor] 20 mg PO DAILY Calcium Carb/D3/Magnesium/Zinc [Arthur Mag Zinc-D Tablet] 1 tab PO DAILY Cholecalciferol (D-3) [Vitamin D] 1,000 unit PO DAILY Pantoprazole Sodium 40 mg PO HS Meloxicam 15 mg PO DAILY Sucralfate [Carafate] 1 gm PO TID Albuterol Sulfate [Ventolin Hfa] 2 puff IH Q6H PRN PRN Reason: Shortness Of Breath Cyclobenzaprine HCl 5 mg PO BID PRN PRN Reason: Muscle Spasm GlipiZIDE [Glipizide Xl] 5 mg PO DAILY Levothyroxine [Synthroid] 125 mcg PO 0630 Lisinopril [Zestril] 40 mg PO HS Metformin HCl 1,000 mg PO BID Mirabegron [Myrbetriq] 50 mg PO DAILY Zolpidem [Ambien] 10 mg PO HS PRN 2 Days #2 tablet PRN Reason: Insomnia Discontinued Gabapentin 1,200 mg PO BID Home Medications: Aspirin 81 mg PO HS 11/13/16 [History] Furosemide [Lasix] 20 mg PO DAILY 11/13/16 [History] Multivitamin [One Daily Multivitamin] 1 each PO DAILY 11/13/16 [History] Sertraline [Zoloft] 50 mg PO DAILY 11/13/16 [History] Atorvastatin Calcium [Lipitor] 20 mg PO DAILY 04/17/17 [History] Calcium Carb/D3/Magnesium/Zinc [Arthur Mag Zinc-D Tablet] 1 tab PO DAILY 08/08/17 [History] Cholecalciferol (D-3) [Vitamin D] 1,000 unit PO DAILY 08/08/17 [History] Pantoprazole Sodium 40 mg PO HS 08/08/17 [History] Meloxicam 15 mg PO DAILY 12/14/17 [History] Sucralfate [Carafate] 1 gm PO TID 12/14/17 [History] Albuterol Sulfate [Ventolin Hfa] 2 puff IH Q6H PRN 03/11/19 [History] Cyclobenzaprine HCl 5 mg PO BID PRN 03/11/19 [History] GlipiZIDE [Glipizide Xl] 5 mg PO DAILY 03/11/19 [History] Levothyroxine [Synthroid] 125 mcg PO 0630 03/11/19 [History] Lisinopril [Zestril] 40 mg PO HS 03/11/19 [History] Metformin HCl 1,000 mg PO BID 03/11/19 [History] Mirabegron [Myrbetriq] 50 mg PO DAILY 03/11/19 [History] Gabapentin [Neurontin] 600 mg PO BID 2 Days #4 capsule 03/14/19 [Rx] HYDROcodone/Acet 5/325 mg [Otho 5-325 mg] 2 tab PO Q6HR PRN 1 Days #8 tablet 03/14/19 [Rx] Zolpidem [Ambien] 10 mg PO HS PRN 2 Days #2 tablet 03/14/19 [Rx] Allergies/Adverse Reactions: Allergy/AdvReac Type Severity Reaction Status Date / Time ayana flavor Allergy Swelling Verified 03/11/19 12:18 of Lip/Tongue/Throat Sulfa (Sulfonamide AdvReac Unknown See Verified 03/11/19 12:18 Antibiotics) Comments Date of admission: 03/11/19 20:01 Primary care physician: PCP NONE Consults: 03/11/19 22:09 Consult to Combining Machine Operator [CONS] Routine Reason for SW Consult: financial concerns, paying bills being unable to work 03/12/19 10:09 Consult to Physical Therapy [CONS] Routine Comment: Evaluate, develop and implement POC Reason for Consult: Back and R leg pain Does patient have active BEDREST order?: No Is patient medically & hemodynamically stable?: Yes Patient assessed for mobility or mobilized this visit?: No OT [Consult to Occupational Therapy] [CONS] Routine Comment: Evaluate, develop and implement POC Reason for Consult: Back and R leg pain Does patient have active BEDREST order?: No Is patient medically & hemodynamically stable?: Yes Patient assessed for mobility or mobilized this visit?: No Discharging clinician: Monty Butterfield Anticipated date of discharge: 03/14/19 - Constitutional Vitals: Temp Pulse Resp BP Pulse Ox 98.5 F 55 15 162/65 92 03/14/19 13:06 03/14/19 13:06 03/14/19 13:06 03/14/19 13:06 03/14/19 13:06 General appearance: Present: A&O X 3 Exam: See below - Head Head exam: Present: normocephalic - Eye Eye exam: Present: EOMI, conjuntiva pink - ENT ENT exam: Present: mucous membranes moist - Respiratory Respiratory exam: Present: CTAB. Absent: rales, rhonchi, wheezes - Cardiovascular Cardiovascular exam: Present: RRR. Absent: tachycardia - GI/Abdominal GI/Abdominal exam: Present: soft. Absent: tenderness - Extremities Exam Extremities exam: Present: warm. Absent: tenderness - Neurological Exam Neurological exam: Present: alert, oriented X3 - Skin Skin exam: Present: dry, warm - Patient Status Disposition: Transfer SNF Condition: Fair Functional capacity at discharge: uses cane/walker Overall status at discharge: patient is progressing back to baseline - Discharge Instructions - Diet and Activity Activity: as per physical therapy, increase activity as tolerated Diet: diabetic diet
--- NOTE | 2019-03-14 15:53 | Physician Discharge Referral ---
ExtendedCare Referral Info Provider in Charge after Transfer: PCP Institutional Level of Care: Skilled - Diagnosis (1) Lumbar radiculopathy Priority: Primary Status: Acute (2) Right leg pain Priority: Secondary Status: Acute (3) HTN (hypertension) Priority: Secondary Status: Chronic (4) DMII (diabetes mellitus, type 2) Priority: Secondary Status: Chronic (5) Hypothyroid Priority: Secondary Status: Chronic Prognosis: Good Aware of Diagnosis: Patient Aware of Prognosis: Patient - Transfer Medications Prescriptions: Zolpidem [Ambien] 10 mg PO HS PRN 2 Days #2 tablet PRN Reason: Insomnia Gabapentin [Neurontin] 600 mg PO BID 2 Days #4 capsule HYDROcodone/Acet 5/325 mg [[place] 5-325 mg] 2 tab PO Q6HR PRN 1 Days #8 tablet PRN Reason: Moderate Pain Home Medications: Aspirin 81 mg PO HS 11/13/16 [History] Furosemide [Lasix] 20 mg PO DAILY 11/13/16 [History] Multivitamin [One Daily Multivitamin] 1 each PO DAILY 11/13/16 [History] Sertraline [Zoloft] 50 mg PO DAILY 11/13/16 [History] Atorvastatin Calcium [Lipitor] 20 mg PO DAILY 04/17/17 [History] Calcium Carb/D3/Magnesium/Zinc [Arthur Mag Zinc-D Tablet] 1 tab PO DAILY 08/08/17 [History] Cholecalciferol (D-3) [Vitamin D] 1,000 unit PO DAILY 08/08/17 [History] Pantoprazole Sodium 40 mg PO HS 08/08/17 [History] Meloxicam 15 mg PO DAILY 12/14/17 [History] Sucralfate [Carafate] 1 gm PO TID 12/14/17 [History] Albuterol Sulfate [Ventolin Hfa] 2 puff IH Q6H PRN 03/11/19 [History] Cyclobenzaprine HCl 5 mg PO BID PRN 03/11/19 [History] GlipiZIDE [Glipizide Xl] 5 mg PO DAILY 03/11/19 [History] Levothyroxine [Synthroid] 125 mcg PO 0630 03/11/19 [History] Lisinopril [Zestril] 40 mg PO HS 03/11/19 [History] Metformin HCl 1,000 mg PO BID 03/11/19 [History] Mirabegron [Myrbetriq] 50 mg PO DAILY 03/11/19 [History] Gabapentin [Neurontin] 600 mg PO BID 2 Days #4 capsule 03/14/19 [Rx] HYDROcodone/Acet 5/325 mg [[place] 5-325 mg] 2 tab PO Q6HR PRN 1 Days #8 tablet 03/14/19 [Rx] Zolpidem [Ambien] 10 mg PO HS PRN 2 Days #2 tablet 03/14/19 [Rx] Allergies/Adverse Reactions: Allergy/AdvReac Type Severity Reaction Status Date / Time ayana flavor Allergy Swelling Verified 03/11/19 12:18 of Lip/Tongue/Throat Sulfa (Sulfonamide AdvReac Unknown See Verified 03/11/19 12:18 Antibiotics) Comments - Respiratory Orders Smoking Cessation: Smoking cessation has been advised. For more information, call the [place] Tobacco Quit Line at 6-098-AOKQ-NOW. - Ancillary Orders May use pressure relief devices daily prn, May go on LIANE w/family/respon green party w/meds at nurse discretion PRN, May consult with Dentist, Dental Amalgam Processor, Copier Operator PRN - Advance Directives Code Status: Full Code - Mobility Orders Chair, Ambulate - Rehabiliation Orders Rehab Potential: Good Rehab Orders: Evaluation for Physical Therapy, Evaluation for Occupational Therapy - Treatments Skin tear care topically daily PRN per policy, May check for fecal impaction rectally daily PRN, Fleet enema rectally every other day PRN cleansing purposes - Diet Orders No Concentrated Sweets CERTIFICATION: I certify that the transfer of the above named patient to an Extended Care [facility] is necessary for the continuing treatment of the diagnosis listed. The above information is true and accurate reflection of patient's current condition. Confidential - Redisclosure prohibited without a patient's written consent.
[2019-03-14 18:43] VITALS: BP 181/73
== END 2019-03-14 18:30 ==
LOC: EMEROOARM 12:07 → 3NENU 12:07 → SUATTDRO 20:01 → 3NENU 20:47
PROVIDERS: ADMIT Internal Medicine Nephrology; ATTEND Internal Medicine

== ENCOUNTER 2019-04-02 12:14 | Inpatient (IN) ==
[2019-04-02] MEDS ORDERED: Ondansetron 4 MG/2 ML VIAL IVP ONE (13:28)
[2019-04-02] MEDS ORDERED: 0.9 % Sodium Chloride 1,000 ML IVC ONE ×2 (13:28→18:08)
[2019-04-02 14:02] LABS: Hematocrit 36.7 % (35.3-44.9); Hemoglobin 11.8 g/dL (11.5-15.4); Mean Corpuscular HGB Conc 32.2 g/dL (31.6-35.5); Mean Corpuscular Hemoglobin 31.1 pg (28.0-33.3); Mean Corpuscular Volume 96.8 fL (83.0-100.0); Mean Platelet Volume 10.3 fL (9.4-12.4); Platelet Count 327 K/mcL (140-400); Red Blood Count 3.79 M/mcL (3.82-4.97); Red Cell Distribution Width 13.3 % (11.5-14.5); White Blood Count 20.4 K/mcL (4.3-11.1)
--- NOTE | 2019-04-02 14:02 | Emergency Department Note ---
Disposition Clinical Impression: Acute renal failure, Severe dehydration, Hyperkalemia, Hypoglycemia UTI (urinary tract infection) Qualifiers: Urinary tract infection type: acute cystitis Hematuria presence: without hematuria Qualified Code(s): N30.00 - Acute cystitis without hematuria Disposition: Admitted As Inpatient Condition: Fair Referrals: Zaki Brown DO [Primary Care Provider] - Time of Disposition: 16:21 General Adult HPI - General Chief complaint: ED Weakness Stated complaint: Dehydration,weaknesss Time Seen by Provider: 04/02/19 13:00 Source: patient Limitations: no limitations Nursing Notes Reviewed: Yes Vital Signs Reviewed: Yes - History of Present Illness HPI Narrative: She presents with vomiting and diarrhea for the last 3 days about 5 times each o f vomiting and diarrhea and no recent exposures. No recent antibiotic use. No recent travel. Does have generalized abdominal cramping which is intermittent for the last several days. No blood in the vomit, urine or stool but feels that her stool is dark/black. She does have some lightheadedness when she stands but no lightheadedness at this time. She does feel tired. Social history: Smoker, no alcohol or drugs Pain Scale: 10 - Related Data Home Medications Medication Instructions Recorded Confirmed Aspirin 81 mg PO HS 11/13/16 03/11/19 Furosemide [Lasix] 20 mg PO DAILY 11/13/16 03/11/19 Multivitamin [One Daily 1 each PO DAILY 11/13/16 03/11/19 Multivitamin] Sertraline [Zoloft] 50 mg PO DAILY 11/13/16 03/11/19 Atorvastatin Calcium [Lipitor] 20 mg PO DAILY 04/17/17 03/11/19 Calcium Carb/D3/Magnesium/Zinc 1 tab PO DAILY 08/08/17 03/11/19 [Arthur Mag Zinc-D Tablet] Cholecalciferol (D-3) [Vitamin D] 1,000 unit PO DAILY 08/08/17 03/11/19 Pantoprazole Sodium 40 mg PO HS 08/08/17 03/11/19 Meloxicam 15 mg PO DAILY 12/14/17 03/11/19 Sucralfate [Carafate] 1 gm PO TID 12/14/17 03/11/19 Albuterol Sulfate [Ventolin Hfa] 2 puff IH Q6H PRN 03/11/19 03/11/19 Cyclobenzaprine HCl 5 mg PO BID PRN 03/11/19 03/11/19 GlipiZIDE [Glipizide Xl] 5 mg PO DAILY 03/11/19 03/11/19 Levothyroxine [Synthroid] 125 mcg PO 0603/11/19 03/11/19 Lisinopril [Zestril] 40 mg PO HS 03/11/19 03/11/19 Metformin HCl 1,000 mg PO BID 03/11/19 03/11/19 Mirabegron [Myrbetriq] 50 mg PO DAILY 03/11/19 03/11/19 Allergies Allergy/AdvReac Type Severity Reaction Status Date / Time ayana flavor Allergy Swelling Verified 04/02/19 12:19 of Lip/Tongue/Throat Sulfa (Sulfonamide AdvReac Unknown See Verified 04/02/19 12:19 Antibiotics) Comments All systems ED: reviewed and negative except as stated. Past Medical History - Past Medical History Medical history: Reports: arthritis, CVA, diabetes, hyperlipidemia, hypertension, renal disease, thyroid disease, TIA, other Surgical history: Reports: cholecystectomy, knee replacement, orthopedic, other, other Psychiatric history: Reports: depression - Social History Smoking Status: Current every day smoker Smokeless Tobacco Status: No Alcohol use: Reports: none Drug use: Reports: none Physical Exam CONSTITUTIONAL: Alert and oriented X3, well-nourished, well appearing, in no apparent distress HEAD: Normocephalic; atraumatic. EYES: PERRL, no scleral icterus. NOSE: The nose is normal in appearance without rhinorrhea RESP: Normal chest excursion with respiration; breath sounds clear and equal bilaterally; no wheezes, rhonchi, or rales CARD: Regular rhythm, without murmurs, rub or gallop ABD: Non-distended; mild generalized discomfort, normal appearance, the entire abdomen is soft,without rigidity, rebound or guarding SKIN: Normal for age and race; warm and dry; no apparent lesions - General Limitations: no limitations General appearance: alert, in no apparent distress Course Vital Signs Temperature 97.6 F 04/02/19 12:19 Pulse Rate 99 04/02/19 12:19 Respiratory Rate 18 04/02/19 12:19 Blood Pressure 160/66 04/02/19 12:19 O2 Sat by Pulse Oximetry 96 04/02/19 12:19 Temperature 97.6 F 04/02/19 13:06 Pulse Rate 101 04/02/19 18:33 Respiratory Rate 18 04/02/19 18:33 Blood Pressure 126/51 04/02/19 18:33 O2 Sat by Pulse Oximetry 100 04/02/19 18:33 Oxygen Delivery Oxygen Delivery Room Air Medical Decision Making - MDM Narrative Medical decision making narrative: Labs including LFTs and lipase, IV fluids, IV Zofran. Reassessment. I do not suspect myocardial ischemia and no EKG or troponin testing is done. This is generalized abdominal discomfort and the CT will be done to look for evidence of possible obstruction. No recent antibiotic use. [address] Leon for admission. I did just speak with the nurse and it was difficult to start a line and took 7 attempts so the patient will now get the 1 L bolus as a true bolus with a press ure bag over 20 minutes and will complete the bicarbonate drip. I did write for a second line. And additionally the patient is getting a second EKG. I discuss the case with Dr. Cabral called back for consideration of dialysis. 1725 I did go back and check on the patient and also spoke with Dr. Leon and also spoke with Dr. Cabral second time. We did review the patient's labs and no dialysis indicated at this time and the patient has now completed the 1 L of IV normal saline and I did write for a second liter. After the second liter is completed as a bolus the patient will resume the bicarbonate drip. Also, I did speak with the nurse and a Xie catheter will be placed and the second IV line will be attempted at this time. Dr. Cabral's thought is that the patient could be admitted to the stepdown unit and does not feel that the potassium would need to be repeated here in the emergency department and the patient could go up to the floor at this time. I did speak with the hospitalist for admission and they will also speak with Dr. Cabral to coordinate care. I did see the patient multiple times and did just see her again about 10 minutes ago. She does have some chest and epigastric discomfort and arm weakness. This is after the first 1L NS bolus was completed. A 2nd L WO is to be started right now. The second EKG that was done does not show any ischemic changes and does show normal sinus rhythm with a rate of 93 and this was done at 5:30 PM. Does not show hyperacute T waves or evidence of QRS widening. 1814 I did speak with Dr. Leon and she does accept the patient for admission and so I did just turn in the admission at this time. The hospitalist did see the patient in the emergency department and did write for a repeat potassium at 8 PM. 1909 - Medical Records Medical records reviewed: Yes I reviewed the patient's medical records. - Lab Data Lab results reviewed: Yes I reviewed the patient's lab results. Result diagrams: 04/02/19 13:41 04/02/19 16:34 Lab Results 04/02/19 04/02/19 04/02/19 Range/Units 13:41 13:41 15:26 WBC 20.4 H (4.3-11.1) K/mcL RBC 3.79 L (3.82-4.97) M/mcL Hgb 11.8 (11.5-15.4) g/dL Hct 36.7 (35.3-44.9) % MCV 96.8 (83.0-100.0) fL MCH 31.1 (28.0-33.3) pg MCHC 32.2 (31.6-35.5) g/dL RDW 13.3 (11.5-14.5) % Plt Count 327 (140-400) K/mcL MPV 10.3 (9.4-12.4) fL Sodium 129 L (136-145) mEq/L Potassium 7.2 H* (3.5-5.1) mEq/L Chloride 89 L (98-107) mEq/L Carbon Dioxide 11 L (23-29) mEq/L BUN 62 H (8-23) mg/dL Creatinine 7.63 H (0.60-1.20) mg/dL Est GFR ( Amer) 6 L (> 60) Est GFR (Non-Af Amer) 5 L (> 60) BUN/Creatinine Ratio 8 (6-26) Glucose 36 L* (70-105) mg/dL Calculated Osmolality 282 (280-300) Calcium 11.3 H (8.6-10.3) mg/dL Total Bilirubin 0.2 L (0.3-1.0) mg/dL Direct Bilirubin 0.0 (0.0-0.2) mg/dL Indirect Bilirubin 0.2 (0.0-1.2) mg/dL AST 16 (13-39) Units/L ALT 17 (7-52) Units/L Alkaline Phosphatase 83 (34-104) Units/L Serum Total Protein 6.9 (6.4-8.9) g/dL Albumin 3.9 (3.5-5.7) g/dL Globulin 3.0 (2.4-3.5) g/dL Albumin/Globulin Ratio 1.3 (1.1-2.2) Lipase 32 (11-82) Units/L Ur Specimen Adequacy See below A Urine Color Yellow (Yellow) Urine Clarity Turbid A (Clear) Urine pH 6.0 (5.0-8.0) pH Units Ur Specific [place] 1.021 (1.010-1.025) Urine Protein >=1000 H (Neg-Trace) mg/dL Urine Glucose (UA) Normal (Normal) mg/dL Urine Ketones Trace H (Negative) mg/dL Urine Blood Moderate H (Negative) Urine Nitrite Negative (Negative) Urine Bilirubin Negative (Negative) Urine Urobilinogen Normal (Normal) mg/dL Ur Leukocyte Esterase Large H (Negative) Urine Microscopic RBC 0-3 (0-3) per hpf Urine Microscopic WBC 50-100 H (0-3) per hpf Ur Squamous Epith Cells Few (None-Few) per lpf Urine Bacteria Many H (None-Few) per hpf 04/02/19 Range/Units 16:34 WBC (4.3-11.1) K/mcL RBC (3.82-4.97) M/mcL Hgb (11.5-15.4) g/dL Hct (35.3-44.9) % MCV (83.0-100.0) fL MCH (28.0-33.3) pg MCHC (31.6-35.5) g/dL RDW (11.5-14.5) % Plt Count (140-400) K/mcL MPV (9.4-12.4) fL Sodium 125 L (136-145) mEq/L Potassium 7.5 H* (3.5-5.1) mEq/L Chloride 87 L (98-107) mEq/L Carbon Dioxide 11 L (23-29) mEq/L BUN 64 H (8-23) mg/dL Creatinine 7.74 H (0.60-1.20) mg/dL Est GFR ( Amer) 6 L (> 60) Est GFR (Non-Af Amer) 5 L (> 60) BUN/Creatinine Ratio 8 (6-26) Glucose 178 H (70-105) mg/dL Calculated Osmolality 283 (280-300) Calcium 11.2 H (8.6-10.3) mg/dL Total Bilirubin (0.3-1.0) mg/dL Direct Bilirubin (0.0-0.2) mg/dL Indirect Bilirubin (0.0-1.2) mg/dL AST (13-39) Units/L ALT (7-52) Units/L Alkaline Phosphatase (34-104) Units/L Serum Total Protein (6.4-8.9) g/dL Albumin (3.5-5.7) g/dL Globulin (2.4-3.5) g/dL Albumin/Globulin Ratio (1.1-2.2) Lipase (11-82) Units/L Ur Specimen Adequacy Urine Color (Yellow) Urine Clarity (Clear) Urine pH (5.0-8.0) pH Units Ur Specific [place] (1.010-1.025) Urine Protein (Neg-Trace) mg/dL Urine Glucose (UA) (Normal) mg/dL Urine Ketones (Negative) mg/dL Urine Blood (Negative) Urine Nitrite (Negative) Urine Bilirubin (Negative) Urine Urobilinogen (Normal) mg/dL Ur Leukocyte Esterase (Negative) Urine Microscopic RBC (0-3) per hpf Urine Microscopic WBC (0-3) per hpf Ur Squamous Epith Cells (None-Few) per lpf Urine Bacteria (None-Few) per hpf - Radiology Data Radiology results reviewed: Yes I reviewed the patient's radiology results. Critical Care Time Critical Care Time: Yes Total Critical Care Time: 60 Attestation: Patient has significant hyperkalemia which has increased on the second draw. Receiving multiple medications. Discussion with Dr. Cabral from nephrology as well as the hospitalist.
[2019-04-02] MEDS ORDERED: Sodium Bicarbonate 50 MEQ/50 ML VIAL IVP ONE (14:41)
[2019-04-02] MEDS ORDERED: *HR* Dextrose 50 % in Water (Syg) 50 ML SYRINGE IVP ONE (14:41)
[2019-04-02 14:45] LABS: Albumin 3.9 g/dL (3.5-5.7); Albumin/Globulin Ratio 1.3 (1.1-2.2); Bilirubin,Indirect 0.2 mg/dL (0.0-1.2); Bilirubin,Total 0.2 mg/dL (0.3-1.0); Calcium 11.3 mg/dL (8.6-10.3); Potassium 7.2 mEq/L (3.5-5.1); Total Protein 6.9 g/dL (6.4-8.9)
[2019-04-02] MEDS ORDERED: Albuterol 2.5 MG/3 ML NEBULIZER IH STA (15:02)
[2019-04-02] MEDS ORDERED: Calcium Gluconate 1gm/50mL 1 GM/50 ML BAG IVPB ONE (15:15)
[2019-04-02] MEDS ORDERED: Sodium Bicarbonate 75 MEQ in 0.45 % Sodium Chloride 1,000 ML IVC SCH (15:15)
[2019-04-02 15:41] LABS: Bilirubin,Urine Negative (Negative); Blood,Urine Moderate (Negative); Clarity,Urine Turbid (Clear); Color,Urine Yellow (Yellow); Glucose,Urine (UA) Normal (Normal); Ketones,Urine Trace mg/dL (Negative); Leukocyte Esterase,Urine Large (Negative); Nitrite,Urine Negative (Negative); Protein,Urine >=1000 mg/dL (Neg-Trace); Specific Gravity,Urine 1.021 (1.010-1.025); Urobilinogen,Urine Normal (Normal)
[2019-04-02 15:43] LABS: RBC,Urine 0-3 per hpf (0-3); WBC,Urine 50-100 per hpf (0-3)
[2019-04-02 15:44] LABS: Bacteria,Urine Many per hpf (None-Few); Squamous Epithelial Cell,Urine Few per lpf (None-Few)
[2019-04-02] MEDS ORDERED: cefTRIAXone 1,000 MG in 0.9 % Sodium Chloride Mini Bag 100 ML IVPB ONE (16:17)
[2019-04-02 17:18] LABS: Calcium 11.2 mg/dL (8.6-10.3); Potassium 7.5 mEq/L (3.5-5.1)
--- NOTE | 2019-04-02 18:28 | Internal Med History&Physical ---
Date of Encounter: 04/02/19 Time of Encounter: 18:00 Internal Medicine - H&P: HPI Chief complaint: Muscle cramps, weakness, diarrhea, nausea and vomiting Admitted From: Emergency Dept Plans for Post Hospital Care: Home History of present illness: Ms. Goins is a 73 year old female patient with a history of diabetes who presented to the ER with complaints of generalized weakness along with nausea vomiting diarrhea. She has had multiple episodes of diarrhea over the past 3 days. Denies any recent antibiotic use. She is also been having some abdominal cramping. During my interview she describes chest pain that was severe and sharp and radiating to the back along with cramps and pain in her both upper extremities with associated weakness. She also complained of lightheadedness. No shortness of breath. No fevers or chills recently. Past Med Surg Social Fam HX - Past Medical History Attestation: Yes The following information was validated with the patient. Source: patient Medical history: arthritis, CVA, diabetes, hyperlipidemia, hypertension, renal disease, thyroid disease, TIA, other Additional medical history: skin lupus Psychiatric history: depression - Past Surgical History Surgical History: cholecystectomy, knee replacement, orthopedic, other, other Additional surgical history: back,dwayne knee replacement,right shoulder replacement, tubal - Social History Smoking Status: Current every day smoker Smokeless Tobacco Status: No Alcohol use: none Drug use: none - Family History Father Living Status: Hx Family Neurologic Disorders: Yes (aneurysm , stroke) Mother Living Status: Hx Family Respiratory Disorders: Yes (TB) Sister Living Status: Still Living Internal Medicine - H&P: Meds Aspirin 81 mg PO HS 11/13/16 [History] Furosemide [Lasix] 20 mg PO DAILY 11/13/16 [History] Multivitamin [One Daily Multivitamin] 1 each PO DAILY 11/13/16 [History] Sertraline [Zoloft] 50 mg PO DAILY 11/13/16 [History] Atorvastatin Calcium [Lipitor] 20 mg PO DAILY 04/17/17 [History] Calcium Carb/D3/Magnesium/Zinc [Arthur Mag Zinc-D Tablet] 1 tab PO DAILY 08/08/17 [History] Cholecalciferol (D-3) [Vitamin D] 1,000 unit PO DAILY 08/08/17 [History] Pantoprazole Sodium 40 mg PO HS 08/08/17 [History] Meloxicam 15 mg PO DAILY 12/14/17 [History] Sucralfate [Carafate] 1 gm PO TID 12/14/17 [History] Albuterol Sulfate [Ventolin Hfa] 2 puff IH Q6H PRN 03/11/19 [History] Cyclobenzaprine HCl 5 mg PO BID PRN 03/11/19 [History] GlipiZIDE [Glipizide Xl] 5 mg PO DAILY 03/11/19 [History] Levothyroxine [Synthroid] 125 mcg PO 0630 03/11/19 [History] Lisinopril [Zestril] 40 mg PO HS 03/11/19 [History] Metformin HCl 1,000 mg PO BID 03/11/19 [History] Mirabegron [Myrbetriq] 50 mg PO DAILY 03/11/19 [History] Allergy/AdvReac Type Severity Reaction Status Date / Time ayana flavor Allergy Swelling Verified 04/02/19 12:19 of Lip/Tongue/Throat Sulfa (Sulfonamide AdvReac Unknown See Verified 04/02/19 12:19 Antibiotics) Comments All Systems PM: A 10-system review of systems was performed and is negative for pertinent findings except as documented above in the HPI. - Constitutional Constitutional: fatigue, malaise, no chills, no fever(s), no night sweats - EENT Eyes: no change in vision, no discharge, no pain, no photophobia Ears: no ear discharge, no ear pain, no tinnitus Nose, mouth and throat: no dysphagia, no nasal discharge, no neck pain, no sore throat - Cardiovascular Cardiovascular ROS IM: chest pain, no diaphoresis, no dyspnea, no lightheadedness, no palpitations, no syncope - Respiratory Respiratory: no cough, no dyspnea, no wheezing, no excessive phlegm production - Gastrointestinal Gastrointestinal: no abdominal pain, no diarrhea, no hematemesis, no hematochezia, no melena, no nausea, no vomiting - Genitourinary Genitourinary: no change in urinary stream, no dysuria, no flank pain, no hematuria - Musculoskeletal Musculoskeletal ROS IM: muscle cramps, muscle weakness, no numbness, no tingling - Integumentary Integumentary IM: no rash, no unusual bruising - Neurological Neurological ROS: no confusion, no convulsions, no focal weakness, no numbness, no tingling, no tremor(s) - Hematologic/Lymphatic Hematologic/Lymphatic: no easy bruising - Constitutional Vitals: Temp Pulse Resp BP Pulse Ox 97.6 F 104 18 115/47 100 04/02/19 13:06 04/02/19 17:36 04/02/19 17:36 04/02/19 17:36 04/02/19 17:36 General appearance: Present: cooperative, A&O X 3, severe distress, answers questions appropriately Exam: General: Patient is alert, severe distress due to pain, oriented x 3 Head: atraumatic, normocephalic, ENT: Mucous membranes dry Eye: normal appearance, PERRL, no scleral icterus, no conjunctival injection Neck: normal inspection, trachea midline, full ROM, no carotid bruits Chest: normal inspection, symmetric chest rise Respiratory: Good respiratory effort. Normal breath sounds. No wheezing or crackles. Cardiovascular: Regular rate and rhythm. s1 and s2 normal No clicks, rubs, gallops, or murmurs. No pedal edema Abdomen: Abdomen is soft, nontender. Bowel sounds are present Musculoskeletal: Spontaneously moving all extremities but complains of feeling weak all over. Skin: warm, dry, intact. Neuro: Alert oriented x 3 normal cranial nerves, no focal deficits Psych: Patient's affect is normal Internal Med - H&P Results - Labs CBC & Chem 7: 04/02/19 13:41 04/02/19 16:34 Labs: Short CBC 04/02/19 Range/Units 13:41 WBC 20.4 H (4.3-11.1) K/mcL Hgb 11.8 (11.5-15.4) g/dL Hct 36.7 (35.3-44.9) % Plt Count 327 (140-400) K/mcL BMP 04/02/19 04/02/19 13:41 16:34 Sodium 129 L 125 L Potassium 7.2 H* 7.5 H* Chloride 89 L 87 L Carbon Dioxide 11 L 11 L BUN 62 H 64 H Creatinine 7.63 H 7.74 H Glucose 36 L* 178 H Calcium 11.3 H 11.2 H Liver Function 04/02/19 Range/Units 13:41 Total Bilirubin 0.2 L (0.3-1.0) mg/dL Direct Bilirubin 0.0 (0.0-0.2) mg/dL AST 16 (13-39) Units/L ALT 17 (7-52) Units/L Alkaline Phosphatase 83 (34-104) Units/L Albumin 3.9 (3.5-5.7) g/dL Urine 04/02/19 Range/Units 15:26 Urine Color Yellow (Yellow) Urine Clarity Turbid A (Clear) Urine pH 6.0 (5.0-8.0) pH Units Ur Specific [place] 1.021 (1.010-1.025) Urine Protein >=1000 H (Neg-Trace) mg/dL Urine Glucose (UA) Normal (Normal) mg/dL - EKG Data -: EKG Interpreted by Myself - EKG Data EKG comments: 04/02/19 18:36 No hyperacute T waves. No QRS widening. No acute ST segment changes - Impressions ITS Impressions Abdomen/Pelvis CT 04/02/19 13:28 IMPRESSION: No evidence of urinary tract stones or hydronephrosis. No acute bowel abnormality. Normal appendix. D/ / 04/02/2019 16:45:18 Sunil Dc MD / earnold Interpreting Provider: Sunil Dc MD - Assessment and Plan (1) Acute renal failure Current Visit: Yes Status: Suspected Qualifiers: Acute renal failure type: with acute tubular necrosis Qualified Code(s): N17.0 - Acute kidney failure with tubular necrosis (2) Hyperkalemia Current Visit: Yes Status: Acute (3) Hypoglycemia Current Visit: Yes Status: Acute (4) Severe dehydration Current Visit: Yes Status: Acute (5) Acute gastroenteritis Current Visit: Yes Status: Acute (6) Chest pain Current Visit: Yes Status: Acute Qualifiers: Chest pain type: other chest pain Qualified Code(s): R07.89 - Other chest pain; R07.8 - Other chest pain (7) DMII (diabetes mellitus, type 2) Current Visit: Yes Status: Chronic Qualifiers: Diabetes mellitus rn long term care insulin use: without fci use Diabetes mellitus complication status: with hypoglycemia Diabetes mellitus complication detail: without coma Qualified Code(s): E11.649 - Type 2 diabetes mellitus with hypoglycemia without coma (8) HTN (hypertension) Current Visit: Yes Status: Chronic Qualifiers: Hypertension type: essential hypertension Qualified Code(s): I10 - Essential (primary) hypertension - Summary of Assessment and Plan Summary of Assessment and Plan: Acute renal failure with severe hyperkalemia: Most likely prerenal due to dehydration and volume losses. We will aggressively hydrate patient. Monitor vital signs closely. Monitor urine output. Recommend Xie catheter placement for strict input and output monitoring. Nephrology consulted. Discussed with Dr. Cabral. She recommended continuing IV fluids and expects her renal function to improve once she gets adequately hydrated. Patient has also received Ka yexalate, calcium gluconate and bicarbonate in the ER. Will continue sodium bicarbonate in half normal saline and recheck potassium levels. If potassium levels continue to rise, patient may need intervention including hemodialysis. Patient also takes Lasix, lisinopril, meloxicam at home. We will hold these medications. Diabetes mellitus type 2 with hypoglycemia: Blood glucose was 36 on arrival to the ER. It has since improved. We will monitor blood glucose levels closely. Patient does not take any long-acting insulin but is on glipizide XL. We will hold this medication. Next Essential hypertension: Monitor blood pressure. Hold Lasix and lisinopril. Chest pain: Patient complains of chest and epigastric pain radiating to back. Troponins are negative. EKG is also negative. We will trend troponins. Continue that on exam Carafate. History of prior CVA: Continue aspirin and statin. DVT prophylaxis with subcutaneous heparin. Patient is at high risk for complications. - Time Spent With Patient Total time spent is greater than 50% in coordination of care (as documented) at patient's floor/unit and/or counseling patient:
[2019-04-02] MEDS ORDERED: Naloxone 0.4 MG/ML INJ IVP PRN (18:29)
[2019-04-02] MEDS ORDERED: Dextrose Gel 15 GM/37.5 ML TUBE PO PRN ×2 (18:32)
[2019-04-02] MEDS ORDERED: D5% in Water 1,000 ML IVC PRN (18:32)
[2019-04-02] MEDS ORDERED: Ondansetron 4 MG/2 ML VIAL IVP PRN (18:33)
[2019-04-02] MEDS: *HR* Dextrose 50 % in Water (Syg) 50 ML SYRINGE IVP PRN ×2 (21:02→22:28)
[2019-04-02] MEDS: Insulin LISPRO 300 UNITS/3 ML VIAL SQ SCH (21:33)
[2019-04-02] MEDS: Sucralfate 1 GM TABLET PO SCH (21:33)
[2019-04-02] MEDS: Sodium Bicarbonate 150 MEQ in D5% in Water 1,000 ML IVC SCH ×3 (22:28→23:52)
[2019-04-02 23:47] LABS: Sodium, Urine 75.1 mEq/L
[2019-04-03 01:27] LABS: Calcium 9.5 mg/dL (8.6-10.3); Potassium 6.2 mEq/L (3.5-5.1)
[2019-04-03 04:55] LABS: Basophils % 0.2 %; Hematocrit 30.9 % (35.3-44.9); Immature Granulocytes % 0.7 % (0-4); Lymphocytes # 3.2 K/mcL (0.6-4.6); Lymphocytes % 20.7 %; Mean Corpuscular Hemoglobin 31.2 pg (28.0-33.3); Mean Corpuscular Volume 97.5 fL (83.0-100.0); Mean Platelet Volume 10.1 fL (9.4-12.4); Monocytes % 6.7 %; Platelet Count 259 K/mcL (140-400); Red Blood Count 3.17 M/mcL (3.82-4.97); Red Cell Distribution Width 13.9 % (11.5-14.5); Segmented Neutrophils % 71.7 %; White Blood Count 15.3 K/mcL (4.3-11.1)
[2019-04-03 05:12] LABS: Calcium 9.4 mg/dL (8.6-10.3); Hemoglobin 9.9 g/dL (11.5-15.4); Magnesium 1.9 mg/dL (1.6-2.6); Phosphorous 7.3 mg/dL (2.7-4.5); Potassium 6.1 mEq/L (3.5-5.1)
[2019-04-03] MEDS: Insulin LISPRO 300 UNITS/3 ML VIAL SQ SCH ×4 (08:13→20:22)
[2019-04-03] MEDS: Sucralfate 1 GM TABLET PO SCH ×4 (08:13→20:34)
[2019-04-03] MEDS: Sodium Bicarbonate 150 MEQ in D5% in Water 1,000 ML IVC SCH ×3 (08:13→20:24)
[2019-04-03] MEDS: cefTRIAXone 1,000 MG in Water for inj. (sterile) 10 ML IVP SCH (08:14)
[2019-04-03] MEDS ORDERED: Pantoprazole 40 MG VIAL IVP SCH (09:00)
[2019-04-03] MEDS ORDERED: 0.9 % Sodium Chloride 1,000 ML IVC ONE (11:44)
[2019-04-03] MEDS: *HR* Dextrose 50 % in Water (Syg) 50 ML SYRINGE IVP PRN ×3 (12:04→15:01)
[2019-04-03] MEDS ORDERED: Chloraseptic Spray 177 ML BOTTLE MM PRN (13:09)
--- NOTE | 2019-04-03 14:13 | Internal Med Progress Note ---
Hospitalist Progress Note - Encounter Date of Encounter: 04/03/19 Time of Encounter: 14:10 - Subjective Interval History: Evaluated patient earlier today. Continues to feel lethargic with muscle cramps and weakness. Also complains of soreness in her throat and inability to speak properly as a result. Denies any shortness of breath or lightheadedness. Has had poor urine output overnight. No chest pain at this time. - Exam Vitals: Temp Pulse Resp BP Pulse Ox 98.1 F 85 20 102/46 100 04/03/19 12:10 04/03/19 12:00 04/03/19 12:00 04/03/19 12:00 04/03/19 12:00 Exam: General: Patient is alert, moderate distress, oriented x 3 ENT: Mucous membranes dry, tongue appears discolored. Respiratory: Good respiratory effort. Normal breath sounds. No wheezing or crackles. Cardiovascular: Regular rate and rhythm. s1 and s2 normal No clicks, rubs, gallops, or murmurs. No pedal edema Abdomen: Abdomen is soft, nontender. Bowel sounds are present Musculoskeletal: Spontaneously moving all extremities Skin: warm, dry, intact. Neuro: Alert oriented x 3 normal cranial nerves, no focal deficits - Assessment and Plan (1) Acute renal failure Current Visit: Yes Status: Suspected (2) Hyperkalemia Current Visit: Yes Status: Acute (3) Hypoglycemia Current Visit: Yes Status: Acute (4) Severe dehydration Current Visit: Yes Status: Acute (5) Acute gastroenteritis Current Visit: Yes Status: Acute (6) Chest pain Current Visit: Yes Status: Acute (7) DMII (diabetes mellitus, type 2) Current Visit: Yes Status: Chronic (8) HTN (hypertension) Current Visit: Yes Status: Chronic DVT Prophylaxis: Will start patient on subcutaneous heparin - Summary of Assessment and Plan Summary of Assessment and Plan: Acute renal failure with severe hyperkalemia: Patient continues to be oliguric. Potassium levels are improving with aggressive IV hydration. We will continue to monitor renal function. Creatinine has not improved much. Concern for HTN but urine appears to be clear. Nephrology following. Diabetes mellitus type 2 with hypoglycemia: Blood sugars had improved overnight but later this morning, patient is became hypoglycemic again. Likely due to use of glipizide XL at home with acute kidney injury. We will continue to monitor blood sugars closely. Patient has dextrose 5% with bicarbonate running. Also has dextrose 50% and glucagon ordered as needed. Essential hypertension: Blood pressure is well controlled. Chest pain: No chest pain reported today. She does have epigastric pain. Continue Carafate. History of prior CVA: Continue aspirin and statin. DVT prophylaxis with subcutaneous heparin. Patient is at high risk for complications. - Time Spent with Patient Total time spent is greater than 50% in coordination of care (as documented) at patient's floor/unit and/or counseling patient: Internal Medicine: Result - Labs CBC & Chem 7: 04/03/19 04:35 04/03/19 12:39 Labs: Short CBC 04/03/19 Range/Units 04:35 WBC 15.3 H (4.3-11.1) K/mcL Hgb 9.9 L D (11.5-15.4) g/dL Hct 30.9 L (35.3-44.9) % Plt Count 259 (140-400) K/mcL Neutrophils # 11.0 H (1.6-8.9) K/mcL BMP 04/02/19 04/02/19 04/02/19 13:41 16:34 20:35 Sodium 129 L 125 L Potassium 7.2 H* 7.5 H* 7.0 H* Chloride 89 L 87 L Carbon Dioxide 11 L 11 L BUN 62 H 64 H Creatinine 7.63 H 7.74 H Glucose 36 L* 178 H Calcium 11.3 H 11.2 H 04/03/19 04/03/19 04/03/19 00:44 04:35 10:47 Sodium 131 L 132 L Potassium 6.2 H 6.1 H 5.3 H Chloride 91 L 91 L Carbon Dioxide 13 L 14 L BUN 62 H 63 H Creatinine 7.15 H 7.31 H Glucose 139 H 128 H Calcium 9.5 9.4 04/03/19 12:39 Sodium Potassium Chloride Carbon Dioxide BUN Creatinine Glucose 65 L Calcium Liver Function 04/02/19 Range/Units 13:41 Total Bilirubin 0.2 L (0.3-1.0) mg/dL Direct Bilirubin 0.0 (0.0-0.2) mg/dL AST 16 (13-39) Units/L ALT 17 (7-52) Units/L Alkaline Phosphatase 83 (34-104) Units/L Albumin 3.9 (3.5-5.7) g/dL Urine 04/02/19 Range/Units 15:26 Urine Color Yellow (Yellow) Urine Clarity Turbid A (Clear) Urine pH 6.0 (5.0-8.0) pH Units Ur Specific [place] 1.021 (1.010-1.025) Urine Protein >=1000 H (Neg-Trace) mg/dL Urine Glucose (UA) Normal (Normal) mg/dL - Impressions Impressions Abdomen/Pelvis CT 04/02/19 13:28 IMPRESSION: No evidence of urinary tract stones or hydronephrosis. No acute bowel abnormality. Normal appendix. 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
[2019-04-03 15:35] LABS: Troponin I 0.22 ng/mL (< 0.04)
[2019-04-03] MEDS ORDERED: Sodium Bicarbonate 75 MEQ in D5% in Water 1,000 ML IVC SCH (15:43)
--- NOTE | 2019-04-03 16:05 | Electrocardiograph Report ---
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
--- NOTE | 2019-04-03 16:07 | Electrocardiograph Report ---
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
[2019-04-03] MEDS ORDERED: Perflutren Lipid Microsphere 1.3 ML in 0.9 % Sodium Chloride 8.7 ML IVP ONE (18:17)
[2019-04-03] MEDS: *HR* Heparin 5,000 UNIT/ML VIAL SQ SCH (18:20)
--- NOTE | 2019-04-03 20:05 | Nephrology Consult Note ---
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 as potassium slowly improving but discussed the possibility with pt Urine studies; UA, sodium and creatinine CT abd/pelvis was negative for hydronephrosis (2) Hyperkalemia Status: Resolved Potassium slowly improving, will continue to monitor Renal diet advised when tolerating Continue bicarb gtt for now (3) Nausea vomiting and diarrhea Status: Acute Per primary team History of Present Illness - Reason for Consult Consult date: 04/03/19 Acute Kidney Injury Requesting physician: Elba Montoya - History of Present Illness 73 y o female with PMH of DM, HTN, CVA, OA and CKD admitted 04/02/19 with generalized weakness along with nausea, vomiting and diarrhea. She also reports some lightheadedness. Her potassium was noted elevated at 7.2 with repeat after no intervention in the ED noted at 7.5 and down to 6.1 by this am and SCr of 7.63 and 7.74 on repeat. Baseline SCr noted at 0.78 as of the 10th of this month.Pt did received 2 liters of NS boluses while in the ED with bicarb gtt also started. Pt seen and examined feeling lethargic. Past Med Surg Social Fam HX - Past Medical History Medical history: arthritis, CVA, diabetes, hyperlipidemia, hypertension, renal disease, thyroid disease, TIA, other Additional medical history: skin lupus Psychiatric history: depression - Past Surgical History Surgical History: cholecystectomy Additional surgical history: back,dwayne knee replacement,right shoulder replacement, tubal - Social History Smoking Status: Current every day smoker Smokeless Tobacco Status: No Alcohol use: none Drug use: none - Family History Father Living Status: Hx Family Neurologic Disorders: Yes (aneurysm , stroke) Mother Living Status: Hx Family Respiratory Disorders: Yes (TB) Sister Living Status: Still Living Medications and Allergies Aspirin 81 mg PO HS 11/13/16 [History] Multivitamin [One Daily Multivitamin] 1 each PO DAILY 11/13/16 [History] Sertraline [Zoloft] 50 mg PO DAILY 11/13/16 [History] Atorvastatin Calcium [Lipitor] 20 mg PO DAILY 04/17/17 [History] Calcium Carb/D3/Magnesium/Zinc [Arthur Mag Zinc-D Tablet] 1 tab PO DAILY 08/08/17 [History] Cholecalciferol (D-3) [Vitamin D] 1,000 unit PO DAILY 08/08/17 [History] Pantoprazole Sodium 40 mg PO HS 08/08/17 [History] Sucralfate [Carafate] 1 gm PO TID 12/14/17 [History] Albuterol Sulfate [Ventolin Hfa] 2 puff IH Q6H PRN 03/11/19 [History] Cyclobenzaprine HCl 5 mg PO BID PRN 03/11/19 [History] GlipiZIDE [Glipizide Xl] 5 mg PO DAILY 03/11/19 [History] Levothyroxine [Synthroid] 125 mcg PO 0630 03/11/19 [History] Lisinopril [Zestril] 40 mg PO HS 03/11/19 [History] Mirabegron [Myrbetriq] 50 mg PO DAILY 03/11/19 [History] Zolpidem [Ambien] 10 mg PO HS 04/03/19 [History] amLODIPine [Norvasc] 10 mg PO DAILY #30 tablet 04/09/19 [Rx] Allergy/AdvReac Type Severity Reaction Status Date / Time ayana flavor Allergy Swelling Verified 04/02/19 12:19 of Lip/Tongue/Throat Sulfa (Sulfonamide AdvReac Unknown See Verified 04/02/19 12:19 Antibiotics) Comments Review of Systems All Systems review (narrative): The rest of the systems are negative Constitutional: weakness (admits) Cardiovascular: chest pain (denies), lightheadedness (admits) Respiratory: dyspnea (denies) Gastrointestinal: abdominal pain (admits), nausea (admits), vomiting (admits) Exam - Vital Signs Vital signs: Initial Vital Signs Temp Pulse Resp BP Pulse Ox 97.6 F 99 18 160/66 96 04/02/19 12:19 04/02/19 12:19 04/02/19 12:19 04/02/19 12:19 04/02/19 12:19 Vital Signs - Last 8 Hours Temp Pulse Resp BP Pulse Ox 04/03/19 19:33 97.7 F 04/03/19 18:00 84 20 130/48 100 04/03/19 16:34 98.0 F 04/03/19 16:00 86 20 138/91 100 04/03/19 14:00 88 20 133/54 100 04/03/19 12:10 98.1 F Intake and Output 04/03/19 04/03/19 04/03/19 07:59 15:59 23:59 Intake Total 1150 / 3310 1910 / 3310 250 / 3310 Output Total 0 / 175 25 / 175 150 / 175 Balance 1150 / 3135 1885 / 3135 100 / 3135 Intake: IV Fluids 1150 / 3310 1910 / 3310 250 / 3310 0.9 % Sodium Chloride 1,000 ML 1000 / 1000 @ 3750 mls/hr IVC .Q16M [facility] Rx# :[id number] Sodium Bicarbonate 150 MEQ In 1150 / 2300 900 / 2300 250 / 2300 Dextrose 5% 1,000 ML @ 125 mls/ hr IVC .Q9H12M [facility] Rx#: [id number] Rocephin 1,000 MG In Water for inj. (sterile) 10 ML @ 600 mls/ hr IVP DAILY [facility] Rx#:[id number] Output: Catheter 0 / 175 25 / 175 150 / 175 Other: Stool Size Small Moderate Stool Consistency loose liquid liquid Stool Characteristics Normal for Patient Stool Color Brown # Bowel Movements 3 Weight 76 kg Blood Glucose* 34 53 142 Patient Weight 04/03/19 23:59 Weight 76 kg - General Appearance General appearance: well-developed, well-nourished, fatigue EENT: ATNC, mucous membranes dry Neck: no JVD, supple Respiratory: clear Cardiology: no edema, normal S1, normal S2 Gastrointestinal: tenderness (mild, diffuse), no guarding, obese Integumentary: warm and dry Neurologic: no focal deficit Musculoskeletal: no deformities Psychiatric: mood/affect appropriate, cooperative Results - Lab Results 04/09/19 06:28 04/09/19 06:28 Consult Discharge Plan - Plan Instructions: Amlodipine (By mouth), Chest Pain (DC), Acute Kidney Injury (DC), Urinary Tract Infection in Women (DC), Gastroenteritis (DC), Anemia (GEN) Referrals: Zaki Brown DO [Primary Care Provider] - Kirk Cedillo DO [Partnered Physician] - Prescriptions: amLODIPine [Norvasc] 10 mg PO DAILY #30 tablet
[2019-04-03] MEDS: Aspirin 81 MG TAB.CHEW PO SCH (20:35)
[2019-04-04 03:58] LABS: Basophils % 0.2 %; Eosinophils % 0.2 %; Hemoglobin 10.4 g/dL (11.5-15.4); Immature Granulocytes % 0.6 % (0-4); Lymphocytes % 23.9 %; Mean Corpuscular HGB Conc 34.7 g/dL (31.6-35.5); Mean Corpuscular Hemoglobin 32.5 pg (28.0-33.3); Mean Corpuscular Volume 93.8 fL (83.0-100.0); Monocytes # 0.7 K/mcL (0.0-1.3); Monocytes % 8.5 %; Neutrophils # 5.4 K/mcL (1.6-8.9); Platelet Count 235 K/mcL (140-400); Red Cell Distribution Width 14.1 % (11.5-14.5); Segmented Neutrophils % 66.6 %; White Blood Count 8.2 K/mcL (4.3-11.1)
[2019-04-04 04:13] LABS: Calcium 8.1 mg/dL (8.6-10.3); Magnesium 1.6 mg/dL (1.6-2.6); Potassium 6.2 mEq/L (3.5-5.1)
[2019-04-04] MEDS: *HR* Heparin 5,000 UNIT/ML VIAL SQ SCH ×2 (06:29→17:50)
[2019-04-04] MEDS ORDERED: 0.9 % Sodium Chloride 250 ML IVC PRN (08:37)
[2019-04-04] MEDS ORDERED: 0.9 % Sodium Chloride 1,000 ML PRIME SCH (08:45)
--- NOTE | 2019-04-04 09:40 | Electrocardiograph Report ---
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
[2019-04-04] MEDS ORDERED: Heparin 1,000 UNITS/500 mL 500 ML ONE (09:50)
[2019-04-04] MEDS: cefTRIAXone 1,000 MG in Water for inj. (sterile) 10 ML IVP SCH (10:22)
[2019-04-04] MEDS: Insulin LISPRO 300 UNITS/3 ML VIAL SQ SCH ×4 (10:22→22:32)
[2019-04-04] MEDS: Sucralfate 1 GM TABLET PO SCH ×4 (10:25→22:32)
--- NOTE | 2019-04-04 11:14 | IR Procedure Note ---
Date of procedure: 04/04/19 Consent Obtained: Written consent Timeout: Correct patient and procedure verified, Correct site verified, Time out performed, Skin prep completed Local anesthetic: Lidocaine 1% Was there an triage assistant present: Yes Concreter: Ulices Ang Estimated blood loss (cc): 0 Complications: None; Tolerated procedure well Indications: ARF Procedure Performed: temp dialysis cath placement Results/Findings (any specimens removed): RIJ 15.5f 20 cm temp dialysis cath placement Post Procedure Treatment Plan: monitor on floor Specimen: none
--- NOTE | 2019-04-04 13:08 | Nephrology Progress Note ---
Date of Encounter: 04/04/19 Time of Encounter: 09:00 - Assessment and Plan (1) WANDA (acute kidney injury) Current Visit: Yes Status: Acute I recommend renal replacement therapy today for clearance and volume management. I reviewed the handoff info including lab/vital sign trends, progress notes, med lists and imaging; and I also reviewed the pros versus cons of dialysis and potential adverse effects, and also the potential benefits and indications. The benefits would outweigh the risks at this point, and thus I recommend starting dialysis. She agreed verbally to proceed. She also has hyperkalemia and hyponatremia. Initial care has not helped at least medically with these problems, and therefore she has indications for renal replacement therapy to start today. Discussed with the Hospitalist, and I consulted interventional radiology to request a temporary dialysis catheter placement. (2) Hyponatremia Current Visit: Yes Status: Acute I recommend dialysis, which will also help with electrolyte correction (3) Anemia Current Visit: Yes Status: Acute Goal hemoglobin is 10-11 and I will monitor. Transfusion parameters as per primary team Qualifiers: Anemia type: unspecified type Qualified Code(s): D64.9 - Anemia, unspecified (4) Hyperkalemia Current Visit: Yes Status: Acute Dialysis will also help with correction of electrolytes. Subjective Principal diagnosis: WANDA Interval history: The patient was seen and examined earlier today. She did not affirm having chest pain, but did report feeling diminished appetite, mild nausea, and just not feeling hungry. Objective - Vital Signs Vital signs: Vital Signs Temp Pulse Resp BP Pulse Ox 04/04/19 12:50 148/56 04/04/19 12:35 143/52 04/04/19 12:20 130/61 04/04/19 12:05 140/57 04/04/19 11:50 145/59 04/04/19 11:35 98.7 F 20 141/59 04/04/19 06:46 97.5 F L 82 159/73 98 04/04/19 04:39 97.5 F L 82 16 129/55 99 04/03/19 23:48 97.6 F 77 16 143/56 100 04/03/19 20:00 80 18 127/48 100 04/03/19 19:33 97.7 F 04/03/19 18:00 84 20 130/48 100 04/03/19 16:34 98.0 F 04/03/19 16:00 86 20 138/91 100 04/03/19 14:00 88 20 133/54 100 Intake and Output 04/03/19 04/04/19 04/04/19 23:59 07:59 15:59 Intake Total 250 / 3310 0 / 600 600 / 600 Output Total 325 / 350 400 / 400 Balance -75 / 2960 -400 / 200 600 / 200 Intake: IV Fluids 250 / 3310 Sodium Bicarbonate 150 MEQ In 250 / 2300 Dextrose 5% 1,000 ML @ 125 mls/ hr IVC .Q9H12M [facility] Rx#: [id number] Oral 0 / 0 0 / 0 0 / 0 Intake, Rinseback and Flushes 600 / 600 Output: Urine 0 / 0 Catheter 325 / 350 400 / 400 Other: Weight 87.9 kg 87.9 kg Blood Glucose* 199 Hemodialysis Net Fluid Removed 377 (mL) Patient Weight 04/04/19 23:59 Weight 87.9 kg - General Appearance General appearance: Present: well-developed, well-nourished, obese, fatigue, frail EENT: Present: ATNC, PERRL, mucous membranes moist Neck: Present: supple Respiratory: Present: course breath sounds Cardiology: Present: edema (trace to 1+ ankle nontense edema bilaterally), regular rate, regular rhythm, normal S1, normal S2 Gastrointestinal: Present: normoactive bowel sounds, no guarding, obese Integumentary: Present: no rash, warm and dry Neurologic: Present: asterixis, alert and oriented x3 Musculoskeletal: Present: no erythema, no cyanosis, no clubbing Psychiatric: Present: mood/affect appropriate, cooperative - Lab 04/05/19 04:47 04/05/19 04:47 Most recent lab results 04/04/19 03:40 Calcium 8.1 L Phosphorus 7.0 H Magnesium 1.6 Consult Discharge Plan - Plan Referrals: Zaki Brown DO [Primary Care Provider] -
--- NOTE | 2019-04-04 13:12 | Internal Med Progress Note ---
Hospitalist Progress Note - Encounter Date of Encounter: 04/04/19 Time of Encounter: 13:07 - Subjective Interval History: Evaluated patient earlier today. She feels somewhat better overall but continues to have spasms and pain in her upper extremities and chest. Denies any significant shortness of breath. She continues to have poor urine output. Xei catheter was removed last night. Blood sugars have improved overnight. - Exam Vitals: Temp Pulse Resp BP Pulse Ox 98.7 F 82 20 148/56 98 04/04/19 11:35 04/04/19 06:46 04/04/19 11:35 04/04/19 12:50 04/04/19 06:46 Exam: General: Patient is alert, mild distress, oriented x 3 ENT: Mucous membranes dry Respiratory: Good respiratory effort. Normal breath sounds. No wheezing or crackles. Cardiovascular: Chest wall tenderness present. Regular rate and rhythm. s1 and s2 normal No clicks, rubs, gallops, or murmurs. No pedal edema Abdomen: Abdomen is soft, nontender. Bowel sounds are present Musculoskeletal: Spontaneously moving all extremities Skin: warm, dry, intact. Neuro: Alert oriented x 3 normal cranial nerves, no focal deficits - Assessment and Plan (1) Acute renal failure Current Visit: Yes Status: Suspected (2) Hyperkalemia Current Visit: Yes Status: Acute (3) Hypoglycemia Current Visit: Yes Status: Acute (4) Severe dehydration Current Visit: Yes Status: Acute (5) Acute gastroenteritis Current Visit: Yes Status: Acute (6) Chest pain Current Visit: Yes Status: Acute (7) DMII (diabetes mellitus, type 2) Current Visit: Yes Status: Chronic (8) HTN (hypertension) Current Visit: Yes Status: Chronic DVT Prophylaxis: Subcutaneous heparin - Summary of Assessment and Plan Summary of Assessment and Plan: Acute renal failure with severe hyperkalemia: No significant improvement in patient's renal function. Remains oliguric. Discussed with nephrology. As patient is not improving despite aggressive hydration, will start patient on hemodialysis. Patient in agreement with this plan. Diabetes mellitus type 2 with hypoglycemia: Hypoglycemia resolved. We will place patient on diabetic diet and continues sliding scale insulin. Essential hypertension: Blood pressure is elevated today. Will monitor and start patient on antihypertensive medications as needed. Chest pain: Patient having chest wall pain today. Troponin slightly elevated but it remained adynamic. Most likely due to demand ischemia in setting of acute kidney injury. 2-D echocardiogram shows EF of 65% with mild segmental left ventricular Systolic dysfunction History of prior CVA: Continue aspirin and statin. Possible urinary tract infection: Continue ceftriaxone. Urine culture remains pending. DVT prophylaxis with subcutaneous heparin. Patient remains at high risk for complications. - Time Spent with Patient Total time spent is greater than 50% in coordination of care (as documented) at patient's floor/unit and/or counseling patient: Internal Medicine: Result - Labs CBC & Chem 7: 04/04/19 03:40 04/04/19 03:40 Labs: Short CBC 04/04/19 Range/Units 03:40 WBC 8.2 (4.3-11.1) K/mcL Hgb 10.4 L (11.5-15.4) g/dL Hct 30.0 L (35.3-44.9) % Plt Count 235 (140-400) K/mcL Neutrophils # 5.4 (1.6-8.9) K/mcL BMP 04/03/19 04/04/19 12:39 03:40 Sodium 127 L Potassium 6.2 H Chloride 84 L Carbon Dioxide 22 L BUN 63 H Creatinine 7.32 H Glucose 65 L 260 H Calcium 8.1 L Cardiac Enzymes 04/03/19 04/03/19 04/04/19 Range/Units 12:39 20:28 03:40 Troponin I 0.22 H* 0.30 H* 0.30 H* (< 0.04) ng/mL - Impressions Impressions Echocardiogram 04/03/19 15:44 Impressions: LVEF 65%. Mild segmental left ventricular systolic dysfunction. Normal right ventricular structure and function. Moderate tricuspid regurgitation. Mild pulmonary hypertension. Left Ventricular Wall Motion: Rest Echo Findings The mid anterior lateral, basal anterior lateral, mid inferior lateral and basal inferior lateral dugan were hypokinetic. All other wall segments showed normal motion. Findings: Study Quality * Technically sub-optimal due to poor echocardiographic windows. ECG Findings * Normal sinus rhythm. Left Ventricle * LVEF 65%. * Normal LV chamber size and wall thickness. * Mild segmental left ventricular systolic dysfunction. * Normal left ventricular diastolic function. Right Ventricle * Normal right ventricular structure and function. Left Atrium * Normal left atrial size. Right Atrium * Normal right atrial size. Interatrial Septum * Interatrial septum not well evaluated. * No evidence of PFO by color Doppler. Aortic Valve * Aortic valve not well visualized. * Mildly calcified aortic valve leaflets. * No aortic stenosis. * No aortic regurgitation. Mitral Valve * Normal mitral valve structure. * No mitral stenosis. * Trace mitral regurgitation. Tricuspid Valve * Normal tricuspid valve structure. * No tricuspid stenosis. * Moderate tricuspid regurgitation. * Estimated RVSP is 39 mmHg. * Estimated RA pressure is 3 mmHg. * Mild pulmonary hypertension. Pulmonic Valve * Pulmonic valve is not well visualized. * No pulmonic stenosis. * No pulmonic regurgitation. Aorta * Normally sized aortic root. Pericardium * The pericardium appears normal. IVC * The IVC is not dilated. * > 50% respiratory change Consult Discharge Plan - Plan Referrals: Zaki Brown DO [Primary Care Provider] - (1) Acute renal failure Qualifiers: Qualified Code(s): N17.0 - Acute kidney failure with tubular necrosis (6) Chest pain Qualifiers: Qualified Code(s): R07.89 - Other chest pain; R07.8 - Other chest pain (7) DMII (diabetes mellitus, type 2) Qualifiers: Qualified Code(s): E11.649 - Type 2 diabetes mellitus with hypoglycemia without coma (8) HTN (hypertension) Qualifiers: Qualified Code(s): I10 - Essential (primary) hypertension
[2019-04-04] MEDS: Sodium Bicarbonate 150 MEQ in D5% in Water 1,000 ML IVC SCH (14:03)
[2019-04-04 14:04] LABS: Hepatitis B Surface Antibody < 3.10 mIU/mL
[2019-04-04 14:15] LABS: Hepatitis B Surface Antigen Nonreactive (Nonreactive)
[2019-04-04] MEDS: Aspirin 81 MG TAB.CHEW PO SCH (22:34)
[2019-04-05 05:05] LABS: Basophils % 0.3 %; Eosinophils # 0.1 K/mcL (0.0-0.6); Eosinophils % 0.8 %; Hematocrit 26.7 % (35.3-44.9); Hemoglobin 9.1 g/dL (11.5-15.4); Immature Granulocytes % 0.4 % (0-4); Lymphocytes # 1.6 K/mcL (0.6-4.6); Lymphocytes % 20.1 %; Mean Corpuscular HGB Conc 34.1 g/dL (31.6-35.5); Mean Corpuscular Hemoglobin 31.4 pg (28.0-33.3); Mean Corpuscular Volume 92.1 fL (83.0-100.0); Mean Platelet Volume 9.9 fL (9.4-12.4); Monocytes # 0.7 K/mcL (0.0-1.3); Monocytes % 8.4 %; Neutrophils # 5.6 K/mcL (1.6-8.9); Platelet Count 215 K/mcL (140-400); Red Cell Distribution Width 13.5 % (11.5-14.5)
[2019-04-05] MEDS: *HR* Heparin 5,000 UNIT/ML VIAL SQ SCH ×2 (05:20→17:31)
[2019-04-05 05:25] LABS: Calcium 7.5 mg/dL (8.6-10.3); Potassium 3.5 mEq/L (3.5-5.1)
[2019-04-05] MEDS ORDERED: 0.9 % Sodium Chloride 250 ML IVC PRN (07:32)
[2019-04-05] MEDS: Sucralfate 1 GM TABLET PO SCH ×4 (08:42→21:13)
[2019-04-05] MEDS: cefTRIAXone 1,000 MG in Water for inj. (sterile) 10 ML IVP SCH (08:42)
[2019-04-05] MEDS: Insulin LISPRO 300 UNITS/3 ML VIAL SQ SCH ×4 (08:45→21:13)
--- NOTE | 2019-04-05 10:21 | Nephrology Progress Note ---
Date of Encounter: 04/05/19 Time of Encounter: 08:40 - Assessment and Plan (1) WANDA (acute kidney injury) Current Visit: Yes Status: Acute I recommend renal replacement therapy for a second treatment today (Sunday), and then will tentatively plan to assess renal function Sunday and by Sunday, if her SCr is not maintained (i.e., if it starts to worsen again), then she may need a Permacath. Her UA was abn and I recommend checking GNsserologies. In the meantime, I recommend continuing to follow a renal protective strategy as able. Thank you. (2) Hyponatremia Current Visit: Yes Status: Acute I recommend dialysis again today, which will also help with electrolyte correction (3) Anemia Current Visit: Yes Status: Acute Goal hemoglobin is 10-11 and I will monitor. Transfusion parameters as per primary team Qualifiers: Anemia type: unspecified type Qualified Code(s): D64.9 - Anemia, unspecified (4) Hyperkalemia Current Visit: Yes Status: Acute I recommend dialysis again today, which will also help with electrolyte correction Subjective Principal diagnosis: WANDA Interval history: The patient was seen and examined earlier today, and she reported that she tolerated her first dialysis treatment well. She still has a diminished appetite, but was able to eat some breakfast, she affirmed. She did not report vomiting or diarrhea, however she did not affirm still having nausea. Objective - Vital Signs Vital signs: Vital Signs Temp Pulse Resp BP Pulse Ox 04/05/19 10:10 174/81 04/05/19 09:55 172/82 04/05/19 09:40 164/70 04/05/19 09:25 162/73 04/05/19 09:10 98.7 F 18 162/72 04/05/19 07:04 98.8 F 81 14 170/78 96 04/05/19 05:35 18 97 04/05/19 03:21 97.7 F 93 16 163/66 90 04/04/19 22:49 98.3 F 98 17 166/72 94 04/04/19 19:44 98.3 F 97 17 159/68 92 04/04/19 15:32 96 161/65 98 04/04/19 14:00 97.7 F 20 150/57 04/04/19 13:35 135/58 04/04/19 13:20 150/57 04/04/19 13:05 137/62 04/04/19 12:50 148/56 04/04/19 12:35 143/52 04/04/19 12:20 130/61 04/04/19 12:05 140/57 04/04/19 11:50 145/59 04/04/19 11:35 98.7 F 20 141/59 Intake and Output 04/04/19 04/05/19 04/05/19 23:59 07:59 15:59 Intake Total 100 / 710 1150 / 1990 840 / 1990 Output Total 0 / 1000 1300 / 1300 Balance 100 / -290 -150 / 690 840 / 690 Intake: IV Fluids 1150 / 1150 Sodium Bicarbonate 150 MEQ In 1150 / 1150 Dextrose 5% 1,000 ML @ 125 mls/ hr IVC .[id number] [facility] Rx#: [id number] Oral 100 / 100 0 / 840 840 / 840 Intake, Rinseback and Flushes 0 / 0 Output: Urine 0 / 0 1300 / 1300 Other: Meal Dinner Breakfast Percent of Meal Consumed 50% 50% Weight 81.5 kg Blood Glucose* 135 100 Hemodialysis Net Fluid Removed 244 (mL) Patient Weight 04/05/19 23:59 Weight 81.5 kg - General Appearance Exam: General appearance: Present: well-developed, well-nourished, obese, fatigue, frail EENT: Present: ATNC, PERRL, mucous membranes moist Neck: Present: supple Respiratory: Present: course breath sounds with scattered anterior wheezing Dialysis access: RIJ temporary HD catheter in place with Tegaderm in place Cardiology: Present: edema (trace to 1+ ankle nontense edema bilaterally), regular rate, regular rhythm, normal S1, normal S2 Gastrointestinal: Present: normoactive bowel sounds, no guarding, obese Integumentary: Present: no rash, warm and dry Neurologic: Present: asterixis, alert and oriented x3 Musculoskeletal: Present: no erythema, no cyanosis, no clubbing Psychiatric: Present: mood/affect appropriate, cooperative - Lab 04/05/19 04:47 04/05/19 04:47 Most recent lab results 04/05/19 04/05/19 04:47 04:47 Calcium 7.5 L Phosphorus 3.2 Consult Discharge Plan - Plan Referrals: Zaki Brown DO [Primary Care Provider] -
--- NOTE | 2019-04-05 12:56 | Internal Med Progress Note ---
Hospitalist Progress Note - Encounter Date of Encounter: 04/05/19 Time of Encounter: 12:53 - Subjective Interval History: Patient seen in dialysis. Doing much better today. Denies any fevers or chills. Overall she feels like she is getting better. Having good urine output. She complains of abdominal pain during dialysis. - Exam Vitals: Temp Pulse Resp BP Pulse Ox 98.9 F 81 18 159/74 96 04/05/19 12:00 04/05/19 07:04 04/05/19 12:00 04/05/19 12:00 04/05/19 07:04 Exam: General: Patient is alert, mild distress, oriented x 3 Respiratory: Good respiratory effort. Normal breath sounds. No wheezing or crackles. Cardiovascular: Regular rate and rhythm. s1 and s2 normal No clicks, rubs, gallops, or murmurs. No pedal edema Abdomen: Abdomen is soft, nontender. Bowel sounds are present Musculoskeletal: Spontaneously moving all extremities Skin: warm, dry, intact. Neuro: Alert oriented x 3 normal cranial nerves, no focal deficits - Assessment and Plan (1) Acute renal failure Current Visit: Yes Status: Suspected (2) Hyperkalemia Current Visit: Yes Status: Acute (3) Hypoglycemia Current Visit: Yes Status: Acute (4) Severe dehydration Current Visit: Yes Status: Acute (5) Acute gastroenteritis Current Visit: Yes Status: Acute (6) Chest pain Current Visit: Yes Status: Acute (7) DMII (diabetes mellitus, type 2) Current Visit: Yes Status: Chronic (8) HTN (hypertension) Current Visit: Yes Status: Chronic DVT Prophylaxis: On subcutaneous heparin - Summary of Assessment and Plan Summary of Assessment and Plan: Acute renal failure with severe hyperkalemia: Improved with hemodialysis initiated yesterday. Patient also having improving urine output and hopefully her kidneys will continue to recover. Follow nephrology recommendations. Monitor renal function. Monitor input and output. Diabetes mellitus type 2 with hypoglycemia: Hypoglycemia has resolved. Patient on diabetic diet. Essential hypertension: Blood pressure remains elevated will place patient on amlodipine. Continue to hold Zestril.. Chest pain: This has now resolved. EF 65% on 2-D echocardiogram. History of prior CVA: Continue aspirin and statin. Possible urinary tract infection: On ceftriaxone. Urine cultures still pending. DVT prophylaxis with subcutaneous heparin. Patient remains at moderate risk for complications - Time Spent with Patient Total time spent is greater than 50% in coordination of care (as documented) at patient's floor/unit and/or counseling patient: Internal Medicine: Result - Labs CBC & Chem 7: 04/05/19 04:47 04/05/19 04:47 Labs: Short CBC 04/05/19 Range/Units 04:47 WBC 8.0 (4.3-11.1) K/mcL Hgb 9.1 L (11.5-15.4) g/dL Hct 26.7 L (35.3-44.9) % Plt Count 215 (140-400) K/mcL Neutrophils # 5.6 (1.6-8.9) K/mcL BMP 04/05/19 04:47 Sodium 134 L Potassium 3.5 Chloride 89 L Carbon Dioxide 37 H BUN 31 H Creatinine 4.01 H Glucose 126 H Calcium 7.5 L - Impressions Impressions Guidance Ultrasound 04/04/19 00:00 IMPRESSION: 1. Right internal jugular vein temporary dialysis catheter placement as discussed above. D/ / Lefty Mahajan MD / Lefty Mahajan MD Interpreting Provider: Lefty Mahajan MD Insertion Non-Tunneled Catheter 04/04/19 00:00 IMPRESSION: 1. Right internal jugular vein temporary dialysis catheter placement as discussed above. 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
[2019-04-05] MEDS: amLODIPine 5 MG TABLET PO SCH (15:02)
[2019-04-05 18:08] LABS: Protein/Creatinine Ratio,Urine 3.55 mg/mg (0.00-0.20)
[2019-04-05] MEDS: Aspirin 81 MG TAB.CHEW PO SCH (21:13)
[2019-04-06] MEDS ORDERED: Ipratropium/Albuterol Neb 3 ML IH ONE (01:30)
--- NOTE | 2019-04-06 03:52 | Event Note ---
Date of Encounter: 04/05/19 Time of Encounter: 23:32 Notified by nurse of patient being confused and uncooperative following receiving Ambien. Assessed patient at bedside, will not cooperate with exam. Vitals and blood sugar stable. Will order sitter for safety, cardiac monitoring, and hold Ambien. Nurse to notify of any new changes.
[2019-04-06 04:41] LABS: Basophils % 0.2 %; Eosinophils # 0.1 K/mcL (0.0-0.6); Eosinophils % 0.6 %; Hematocrit 26.3 % (35.3-44.9); Hemoglobin 8.9 g/dL (11.5-15.4); Immature Granulocytes % 0.3 % (0-4); Lymphocytes # 1.9 K/mcL (0.6-4.6); Lymphocytes % 20.1 %; Mean Corpuscular HGB Conc 33.8 g/dL (31.6-35.5); Mean Corpuscular Volume 94.6 fL (83.0-100.0); Mean Platelet Volume 9.6 fL (9.4-12.4); Monocytes # 0.8 K/mcL (0.0-1.3); Monocytes % 8.2 %; Neutrophils # 6.5 K/mcL (1.6-8.9); Platelet Count 176 K/mcL (140-400); Red Blood Count 2.78 M/mcL (3.82-4.97); Segmented Neutrophils % 70.6 %; White Blood Count 9.3 K/mcL (4.3-11.1)
[2019-04-06 04:59] LABS: Calcium 7.7 mg/dL (8.6-10.3); Potassium 3.1 mEq/L (3.5-5.1)
[2019-04-06 05:00] LABS: Complement C3 91 mg/dL (87-200)
[2019-04-06] MEDS: *HR* Heparin 5,000 UNIT/ML VIAL SQ SCH ×2 (06:01→17:10)
[2019-04-06] MEDS: amLODIPine 5 MG TABLET PO SCH (09:17)
[2019-04-06] MEDS: Sucralfate 1 GM TABLET PO SCH ×4 (09:17→21:30)
[2019-04-06] MEDS: cefTRIAXone 1,000 MG in Water for inj. (sterile) 10 ML IVP SCH (09:17)
[2019-04-06] MEDS: Insulin LISPRO 300 UNITS/3 ML VIAL SQ SCH ×4 (09:18→20:25)
--- NOTE | 2019-04-06 10:19 | Nephrology Progress Note ---
Date of Encounter: 04/06/19 Time of Encounter: 08:40 - Assessment and Plan (1) WANDA (acute kidney injury) Current Visit: Yes Status: Acute Status post dialysis on Sunday and Sunday, and her serum creatinine today demonstrated that it has been cleared well with dialysis: no HD recommended today (Sunday). Will need to reassess her renal function/UOP/exam tomorrow to determine if there is any renal function improvement yet. She has mild hypokalemia, and I will replace this orally today. We will check magnesium as well. The complements were within normal limits but her C3 was borderline low. Her urine protein to creatinine ratio was in the nephrotic range. Still pending, however, multiple GN workup serologies. Continue to follow a renal protective strategy as able with strict I's and O's, daily weights, avoidance of nephrotoxins, and renal dosing. Discussed with the patient's hospitalist. Thank you (2) Hyponatremia Current Visit: Yes Status: Acute (3) Anemia Current Visit: Yes Status: Acute Goal hemoglobin is 10-11 and I will monitor. Transfusion parameters as per primary team Qualifiers: Anemia type: unspecified type Qualified Code(s): D64.9 - Anemia, unspecified (4) Hyperkalemia Current Visit: Yes Status: Resolved (5) Proteinuria Current Visit: Yes Status: Acute see above Qualifiers: Proteinuria type: persistent Qualified Code(s): R80.1 - Persistent proteinuria, unspecified (6) Hypokalemia Current Visit: Yes Status: Acute See above Subjective Principal diagnosis: WANDA Interval history: The patient was seen and examined earlier today, and she reported having eaten some of her breakfast, and did not affirm vomiting or diarrhea. She still has some occasional nausea. She did not complain of cramping or any problems with yesterday's dialysis. Objective - Vital Signs Vital signs: Vital Signs Temp Pulse Resp BP Pulse Ox 04/06/19 07:15 98.3 F 69 14 154/72 98 04/06/19 04:04 97.8 F 76 24 160/68 97 04/06/19 02:36 18 97 04/06/19 00:49 98.4 F 69 30 155/61 95 04/05/19 23:09 98.1 F 85 20 158/104 91 04/05/19 21:41 163/88 04/05/19 19:24 98.4 F 79 18 171/69 93 04/05/19 16:33 98.6 F 86 14 172/66 95 04/05/19 13:15 163/66 04/05/19 12:00 98.9 F 18 159/74 04/05/19 11:40 151/70 04/05/19 11:25 162/74 04/05/19 11:10 170/74 04/05/19 10:55 165/77 04/05/19 10:40 170/81 04/05/19 10:25 171/77 Intake and Output 04/05/19 04/06/19 04/06/19 23:59 07:59 15:59 Intake Total 2160 / 4390 0 / 0 Output Total 300 / 300 Balance 2160 / 2170 -300 / -300 Intake: IV Fluids 2160 / 3310 Dextrose 5% 1,000 ML @ 100 mls/ 1000 / 1000 hr IVC .Q10H [facility] Rx#:[id number] Sodium Bicarbonate 150 MEQ In 1150 / 1150 Dextrose 5% 1,000 ML @ 75 mls/ hr IVC .[id number] [facility] Rx#: [id number] Rocephin 1,000 MG In Water for 10 10 inj. (sterile) 10 ML @ 600 mls/ hr IVP DAILY [facility] Rx#:[id number] Oral 0 / 1080 0 / 0 Output: Urine 300 / 300 Other: Stool Size Large Small Stool Consistency loose loose Stool Color Green Green # Voids 1 1 # Urine Diapers 1 # Bowel Movements 1 # Bowel Movement Diapers 1 Weight 78.8 kg Blood Glucose* 130 120 Patient Weight 04/06/19 23:59 Weight 78.8 kg - General Appearance Exam: General appearance: Present: well-developed, well-nourished, obese, fatigue, frail EENT: Present: ATNC, PERRL, mucous membranes moist Neck: Present: supple Respiratory: Present: scattered anterior wheezing Dialysis access: RIJ temporary HD catheter in place with Tegaderm well adhered Cardiology: Present: edema (trace nontense edema bilaterally), regular rate, regular rhythm, normal S1, normal S2 Gastrointestinal: Present: normoactive bowel sounds, no guarding, obese Integumentary: Present: no rash, warm and dry Neurologic: Present: asterixis, alert and oriented x3 Musculoskeletal: Present: no erythema, no cyanosis, no clubbing Psychiatric: Present: mood/affect appropriate, cooperative - Lab 04/06/19 04:25 04/06/19 04:25 Most recent lab results 04/06/19 04:25 Calcium 7.7 L Consult Discharge Plan - Plan Referrals: Zaki Brown DO [Primary Care Provider] -
--- NOTE | 2019-04-06 12:26 | Internal Med Progress Note ---
Hospitalist Progress Note - Encounter Date of Encounter: 04/06/19 Time of Encounter: 12:20 - Subjective Interval History: Patient is doing well this morning. She feels like she is getting better overall. She does continue to have abdominal pain. Reports that it is more superficial than deep. Not associated with food. It is generalized. Did not get worse with bowel movements either. No fever or chills reported overnight. - Exam Vitals: Temp Pulse Resp BP Pulse Ox 98.7 F 70 14 154/69 96 04/06/19 11:12 04/06/19 11:12 04/06/19 11:12 04/06/19 11:12 04/06/19 11:12 Exam: General: Patient is alert, no acute distress, oriented x 3 Respiratory: Good respiratory effort. Normal breath sounds. No wheezing or crackles. Cardiovascular: Regular rate and rhythm. s1 and s2 normal No clicks, rubs, gallops, or murmurs. No pedal edema Abdomen: Abdomen is soft, generalized tenderness. No guarding or rigidity. Bowel sounds are present Musculoskeletal: Spontaneously moving all extremities Skin: warm, dry, intact. Neuro: Alert oriented x 3 normal cranial nerves, no focal deficits - Assessment and Plan (1) Acute renal failure Current Visit: Yes Status: Acute (2) Hyperkalemia Current Visit: Yes Status: Resolved (3) Hypoglycemia Current Visit: Yes Status: Resolved (4) Severe dehydration Current Visit: Yes Status: Acute (5) Acute gastroenteritis Current Visit: Yes Status: Acute (6) Chest pain Current Visit: Yes Status: Acute (7) DMII (diabetes mellitus, type 2) Current Visit: Yes Status: Chronic (8) HTN (hypertension) Current Visit: Yes Status: Chronic DVT Prophylaxis: On subcutaneous heparin - Summary of Assessment and Plan Summary of Assessment and Plan: Acute renal failure with severe hyperkalemia: No dialysis planned for today. Creatinine 1.93 but patient dialyzed yesterday. Monitor renal function panel. Monitor input and output. Patient has hypokalemia today. Replete orally. Diabetes mellitus type 2: Continue diabetic diet and sliding scale insulin. Essential hypertension: Continue amlodipine. Continue to hold lisinopril. Chest pain: This has now resolved. EF 65% on 2-D echocardiogram. Abdominal pain: Etiology uncertain. Will obtain CT scan with oral contrast. CT of the abdomen and pelvis done initially in the ER did not show any acute process. History of prior CVA: Continue aspirin and statin. Possible urinary tract infection: On ceftriaxone. Urine growing gram-negative rods. DVT prophylaxis with subcutaneous heparin. Patient remains at moderate risk for complications - Time Spent with Patient Total time spent is greater than 50% in coordination of care (as documented) at patient's floor/unit and/or counseling patient: Internal Medicine: Result - Labs CBC & Chem 7: 04/06/19 04:25 04/06/19 04:25 Labs: Short CBC 04/06/19 Range/Units 04:25 WBC 9.3 (4.3-11.1) K/mcL Hgb 8.9 L (11.5-15.4) g/dL Hct 26.3 L (35.3-44.9) % Plt Count 176 (140-400) K/mcL Neutrophils # 6.5 (1.6-8.9) K/mcL BMP 04/06/19 04:25 Sodium 136 Potassium 3.1 L Chloride 94 L Carbon Dioxide 33 H BUN 13 Creatinine 1.93 H Glucose 130 H Calcium 7.7 L Consult Discharge Plan - Plan Referrals: Zaki Brown DO [Primary Care Provider] - (1) Acute renal failure Qualifiers: Acute renal failure type: with acute tubular necrosis Qualified Code(s): N17.0 - Acute kidney failure with tubular necrosis (6) Chest pain Qualifiers: Chest pain type: other chest pain Qualified Code(s): R07.89 - Other chest pain; R07.8 - Other chest pain (7) DMII (diabetes mellitus, type 2) Qualifiers: 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
[2019-04-06] MEDS: Aspirin 81 MG TAB.CHEW PO SCH (20:27)
[2019-04-07] MEDS ORDERED: GuaiFENesin Liq 200 MG/10 ML UDC PO PRN (00:23)
[2019-04-07] MEDS: *HR* Heparin 5,000 UNIT/ML VIAL SQ SCH ×2 (05:25→17:59)
[2019-04-07 05:28] LABS: Basophils % 0.2 %; Eosinophils # 0.2 K/mcL (0.0-0.6); Eosinophils % 1.5 %; Hematocrit 25.6 % (35.3-44.9); Hemoglobin 8.7 g/dL (11.5-15.4); Immature Granulocytes % 0.2 % (0-4); Lymphocytes # 1.8 K/mcL (0.6-4.6); Lymphocytes % 17.7 %; Mean Corpuscular Hemoglobin 31.8 pg (28.0-33.3); Mean Corpuscular Volume 93.4 fL (83.0-100.0); Mean Platelet Volume 10.2 fL (9.4-12.4); Monocytes # 0.6 K/mcL (0.0-1.3); Monocytes % 6.2 %; Neutrophils # 7.7 K/mcL (1.6-8.9); Platelet Count 170 K/mcL (140-400); Red Blood Count 2.74 M/mcL (3.82-4.97); Red Cell Distribution Width 12.7 % (11.5-14.5); Segmented Neutrophils % 74.2 %; White Blood Count 10.3 K/mcL (4.3-11.1)
[2019-04-07 05:45] LABS: Calcium 6.6 mg/dL (8.6-10.3); Potassium 2.7 mEq/L (3.5-5.1)
[2019-04-07] MEDS: Sucralfate 1 GM TABLET PO SCH ×4 (08:46→23:05)
[2019-04-07] MEDS: amLODIPine 5 MG TABLET PO SCH (08:46)
[2019-04-07] MEDS: cefTRIAXone 1,000 MG in Water for inj. (sterile) 10 ML IVP SCH (08:47)
[2019-04-07] MEDS: Insulin LISPRO 300 UNITS/3 ML VIAL SQ SCH ×4 (08:47→23:04)
[2019-04-07] MEDS ORDERED: 0.9 % Sodium Chloride w KCl 20 MEQ/1,000 ML MLS IVC SCH (09:30)
--- NOTE | 2019-04-07 09:48 | Internal Med Progress Note ---
<Elba Montoya - Last Filed: 04/07/19 10:44> Hospitalist Progress Note - Encounter Date of Encounter: 04/07/19 Time of Encounter: 09:25 - Exam Vitals: Temp Pulse Resp BP Pulse Ox 99.5 F 69 20 165/77 95 04/07/19 10:38 04/07/19 10:38 04/07/19 10:38 04/07/19 10:38 04/07/19 10:38 - Assessment and Plan (1) DMII (diabetes mellitus, type 2) Current Visit: Yes Status: Chronic (2) HTN (hypertension) Current Visit: Yes Status: Chronic (3) Acute renal failure Current Visit: Yes Status: Acute (4) Chest pain Current Visit: Yes Status: Resolved (5) UTI (urinary tract infection) Current Visit: Yes Status: Acute (6) Anemia Current Visit: Yes Status: Acute (7) Hypokalemia Current Visit: Yes Status: Acute (8) Pancreatitis Current Visit: Yes Status: Acute - Time Spent with Patient Total time spent is greater than 50% in coordination of care (as documented) at patient's floor/unit and/or counseling patient: Internal Medicine: Result - Labs CBC & Chem 7: 04/07/19 05:05 04/07/19 05:05 Labs: Short CBC 04/07/19 Range/Units 05:05 WBC 10.3 (4.3-11.1) K/mcL Hgb 8.7 L (11.5-15.4) g/dL Hct 25.6 L (35.3-44.9) % Plt Count 170 (140-400) K/mcL Neutrophils # 7.7 (1.6-8.9) K/mcL BMP 04/07/19 05:05 Sodium 136 Potassium 2.7 L Chloride 105 Carbon Dioxide 23 BUN 10 Creatinine 1.21 H Glucose 109 H Calcium 6.6 L Liver Function 04/07/19 Range/Units 05:05 Total Bilirubin 0.3 (0.3-1.0) mg/dL Direct Bilirubin 0.1 (0.0-0.2) mg/dL AST 18 (13-39) Units/L ALT 13 (7-52) Units/L Alkaline Phosphatase 54 (34-104) Units/L Albumin 2.5 L (3.5-5.7) g/dL - Impressions Impressions Abdomen/Pelvis CT 04/06/19 16:00 IMPRESSION: Bilateral pleural effusions with overlying atelectatic changes and ascites within the abdomen. The pancreas appears prominent and enlarged when compared to the prior CT scan with some minimal stranding around the tail of the pancreas. These findings may be secondary to early changes of pancreatitis. D/ / 04/06/2019 16:56:17 Jarrett Daily MD / mary alice Interpreting Provider: Jarrett Daily MD Consult Discharge Plan - Plan Referrals: Zaki Brown DO [Primary Care Provider] - - Attending Attestation I saw evaluated and examined this patient and my medical decision-making was reviewed with the Resident Physician, Farhat Millan. I agree with the documented findings, disposition and treatment plan as described except to any changes set forth below. We independently had [id number] contact with the patient. Patient reports that her abdominal pain is improving. CT of the abdomen and pelvis done yesterday did show pancreatic inflammation. Lipase and amylase levels are elevated. Etiology unclear. Will check lipid panel. Patient has had previous cholecystectomy. Will place patient on clears and advance slowly as tolerated. Monitor vital signs. Renal function is improving. Nephrology recommends removal of dialysis catheter. Urine culture growing Klebsiella. Will switch to oral antibiotics based on sensitivity results. <Farhat Millan - Last Filed: 04/07/19 12:18> Hospitalist Progress Note - Encounter Date of Encounter: 04/07/19 Time of Encounter: 09:48 - Subjective Interval History: Patient seen and examined resting comfortably in bed. Patient reports she would like to get out of bed with PT/OT today. CT abdomen pelvis revealed findings consistent with early pancreatitis. Labs revealed elevated lipase and hypokalemia. Patient was started on IV fluids with potassium. Patient reports increased wheezing and would like to start Duonebs. She is scheduled to have HD catheter removed her nephrology recommendations. - Exam Vitals: Temp Pulse Resp BP Pulse Ox 97.9 F 68 20 168/71 96 04/07/19 07:10 04/07/19 07:10 04/07/19 07:10 04/07/19 07:10 04/07/19 07:10 Exam: General: Patient is alert, no acute distress, oriented x 3, obese Respiratory: Good respiratory effort. Diffuse mild wheezing, no crackles. Cardiovascular: Regular rate and rhythm. s1 and s2 normal No clicks, rubs, gallops, or murmurs. No pedal edema Abdomen: Abdomen is soft, generalized tenderness. No guarding or rigidity. Bowel sounds are present Musculoskeletal: Spontaneously moving all extremities Skin: warm, dry, stage I sacral decubitus ulcer. Neuro: Alert oriented x 3 normal cranial nerves, no focal deficits Psych: normal mood, normal affect - Assessment and Plan (1) Pancreatitis Current Visit: Yes Status: Acute Assessment and Plan: CT abdomen pelvis revealed findings consistent with early pancreatitis. Labs revealed elevated lipase. Normal triglyceride level. Patient was started on IV fluids. Clear liquid diet. Advance diet as tolerated. (2) UTI (urinary tract infection) Current Visit: Yes Status: Acute Assessment and Plan: Urinalysis culture grew Klebsiella pneumonia sensitive to Rocephin. Stop Rocephin IV, switch to Levaquin to complete 7 day course of therapy. (3) Hypokalemia Current Visit: Yes Status: Acute Assessment and Plan: Labs revealed elevated lipase and hypokalemia. Patient was started on IV fluids with potassium. Continue oral potassium BID x 3 days. Continue monitoring. (4) Hypomagnesemia Current Visit: Yes Status: Acute Assessment and Plan: Magnesium 1.0, supplement magnesium, continue monitoring. (5) Acute renal failure Current Visit: Yes Status: Acute Assessment and Plan: Patient is status post hemodialysis. HD catheter to be removed today per nephrology orders. Appreciate nephrology recommendations. Monitor renal function panel. Monitor input and output. Patient has hypokalemia today. Replete. (6) DMII (diabetes mellitus, type 2) Current Visit: Yes Status: Chronic Assessment and Plan: Continue diabetic diet and sliding scale insulin. (7) HTN (hypertension) Current Visit: Yes Status: Chronic Assessment and Plan: Continue amlodipine. Resume lisinopril. (8) Chest pain Current Visit: Yes Status: Resolved Assessment and Plan: Resolved. EF 65% on 2-D echocardiogram. (9) Anemia Current Visit: Yes Status: Acute Assessment and Plan: Hemoglobin dropped from 11.8 to 8.7, possibly dilutional anemia. No active bleeding. Last colonoscopy 06/18/17 revealed diverticulosis in the sigmoid colon and one ascending colon polyp. Last EGD 08/08/17 was normal. Continue Carafate. Outpatient follow-up. DVT Prophylaxis: Subcutaneous Heparin - Time Spent with Patient Total time spent is greater than 50% in coordination of care (as documented) at patient's floor/unit and/or counseling patient: Internal Medicine: Result - Labs CBC & Chem 7: 04/07/19 05:05 04/07/19 05:05 Labs: Short CBC 04/07/19 Range/Units 05:05 WBC 10.3 (4.3-11.1) K/mcL Hgb 8.7 L (11.5-15.4) g/dL Hct 25.6 L (35.3-44.9) % Plt Count 170 (140-400) K/mcL Neutrophils # 7.7 (1.6-8.9) K/mcL BMP 04/07/19 05:05 Sodium 136 Potassium 2.7 L Chloride 105 Carbon Dioxide 23 BUN 10 Creatinine 1.21 H Glucose 109 H Calcium 6.6 L - Impressions Impressions Abdomen/Pelvis CT 04/06/19 16:00 IMPRESSION: Bilateral pleural effusions with overlying atelectatic changes and ascites within the abdomen. The pancreas appears prominent and enlarged when compared to the prior CT scan with some minimal stranding around the tail of the pancreas. These findings may be secondary to early changes of pancreatitis. D/ / 04/06/2019 16:56:17 Jarrett Daily MD / mary alice Interpreting Provider: Jarrett Daily MD <Elba Montoya - Last Filed: 04/07/19 10:44> (1) DMII (diabetes mellitus, type 2) Qualifiers: Diabetes mellitus terminal carman insulin use: without terminal carman use Diabetes mellitus complication status: with hypoglycemia Diabetes mellitus complication detail: without coma Qualified Code(s): E11.649 - Type 2 diabetes mellitus with hypoglycemia without coma (2) HTN (hypertension) Qualifiers: Hypertension type: essential hypertension Qualified Code(s): I10 - Essential (primary) hypertension (3) Acute renal failure Qualifiers: Acute renal failure type: with acute tubular necrosis Qualified Code(s): N17.0 - Acute kidney failure with tubular necrosis (4) Chest pain Qualifiers: Chest pain type: other chest pain Qualified Code(s): R07.89 - Other chest pain; R07.8 - Other chest pain (5) UTI (urinary tract infection) Qualifiers: Urinary tract infection type: acute cystitis Hematuria presence: without hematuria Qualified Code(s): N30.00 - Acute cystitis without hematuria (6) Anemia Qualifiers: Anemia type: unspecified type Qualified Code(s): D64.9 - Anemia, unspecified (8) Pancreatitis Qualifiers: Chronicity: acute Pancreatitis type: unspecified pancreatitis type Acute p ancreatitis complication: no infection or necrosis Qualified Code(s): K85.90 - Acute pancreatitis without necrosis or infection, unspecified <Farhat Millan - Last Filed: 04/07/19 12:18> (1) Pancreatitis Qualifiers: Chronicity: acute Pancreatitis type: unspecified pancreatitis type Acute pancreatitis complication: no infection or necrosis Qualified Code(s): K85.90 - Acute pancreatitis without necrosis or infection, unspecified (2) UTI (urinary tract infection) Qualifiers: Urinary tract infection type: acute cystitis Hematuria presence: without hematuria Qualified Code(s): N30.00 - Acute cystitis without hematuria (5) Acute renal failure Qualifiers: Acute renal failure type: with acute tubular necrosis Qualified Code(s): N17.0 - Acute kidney failure with tubular necrosis (6) DMII (diabetes mellitus, type 2) Qualifiers: Diabetes mellitus terminal carman insulin use: without intermediate use Diabetes mellitus complication status: with hypoglycemia Diabetes mellitus complication detail: without coma Qualified Code(s): E11.649 - Type 2 diabetes mellitus with hypoglycemia without coma (7) HTN (hypertension) Qualifiers: Hypertension type: essential hypertension Qualified Code(s): I10 - Essential (primary) hypertension (8) Chest pain Qualifiers: Chest pain type: other chest pain Qualified Code(s): R07.89 - Other chest pain; R07.8 - Other chest pain (9) Anemia Qualifiers: Anemia type: unspecified type Qualified Code(s): D64.9 - Anemia, unspecified
--- NOTE | 2019-04-07 09:48 | Nephrology Progress Note ---
Date of Encounter: 04/07/19 Time of Encounter: 07:55 - Assessment and Plan (1) WANDA (acute kidney injury) Current Visit: Yes Status: Acute She is in the polyuric phase of renal recovery, and will not need further dialysis. Because of her renal recovery and robust urine output, this is likely contributing to the hypokalemia. I have placed orders to have a temporary dialysis catheter removed today. Some GN workup serologies are still pending. Continue to follow a renal protective strategy as able with strict I's and O's, daily weights, avoidance of nephrotoxins, and renal dosing. Thank you (2) Hypokalemia Current Visit: Yes Status: Acute See above, and I have ordered potassium chloride 40 mEq by mouth twice a day 3 days. Continue to follow serum magnesium as well. She is asymptomatic at this time. (3) Hyponatremia Current Visit: Yes Status: Acute (4) Anemia Current Visit: Yes Status: Acute Transfusion parameters as per primary team Qualifiers: Anemia type: unspecified type Qualified Code(s): D64.9 - Anemia, unspecified (5) Proteinuria Current Visit: Yes Status: Acute see above Qualifiers: Proteinuria type: persistent Qualified Code(s): R80.1 - Persistent proteinuria, unspecified Subjective Principal diagnosis: WANDA Interval history: The patient was seen and examined earlier today, and she reported feeling relatively well, without nausea, vomiting, or diarrhea. She did not affirm any chest pain, palpitations or cramping. Objective - Vital Signs Vital signs: Vital Signs Temp Pulse Resp BP Pulse Ox 04/07/19 07:10 97.9 F 68 20 168/71 96 04/07/19 05:00 98.2 F 70 16 157/65 96 04/07/19 00:30 98.4 F 75 16 154/59 96 04/06/19 22:11 182/70 04/06/19 19:18 97.7 F 73 18 178/80 96 04/06/19 15:48 97.7 F 72 14 177/78 97 04/06/19 11:12 98.7 F 70 14 154/69 96 Intake and Output 04/06/19 04/07/19 04/07/19 23:59 07:59 15:59 Intake Total 250 / 730 240 / 240 Output Total 75 / 75 Balance 250 / 430 -75 / 165 240 / 165 Intake: IV Fluids Rocephin 1,000 MG In Water for inj. (sterile) 10 ML @ 600 mls/ hr IVP DAILY CINDY Rx#:[id number] Oral 240 / 720 240 / 240 Output: Urine 75 / 75 Other: Meal Dinner Breakfast Percent of Meal Consumed 75% 95% # Voids 1 1 Weight 76.4 kg Blood Glucose* 168 114 Patient Weight 04/07/19 23:59 Weight 76.4 kg - General Appearance Exam: General appearance: Present: well-developed, well-nourished, obese, fatigue, frail EENT: Present: ATNC, PERRL, mucous membranes moist Neck: Present: supple without kyphosis Respiratory: Present: scattered anterior wheezing Dialysis access: RIJ temporary HD catheter in place with Tegaderm in place Cardiology: Present: no edema, regular rate, regular rhythm, normal S1, normal S2 Gastrointestinal: Present: normoactive bowel sounds, no guarding, obese Integumentary: Present: no rash, warm and dry Neurologic: Present: asterixis, alert and oriented x3 Musculoskeletal: Present: no erythema, no cyanosis, no clubbing Psychiatric: Present: mood/affect appropriate, cooperative - Lab 04/07/19 05:05 04/07/19 05:05 Most recent lab results 04/07/19 05:05 Calcium 6.6 L Consult Discharge Plan - Plan Referrals: Zaki Brown DO [Primary Care Provider] -
[2019-04-07 10:12] LABS: Albumin 2.5 g/dL (3.5-5.7); Albumin/Globulin Ratio 1.2 (1.1-2.2); Bilirubin,Direct 0.1 mg/dL (0.0-0.2); Bilirubin,Indirect 0.2 mg/dL (0.0-1.2); Bilirubin,Total 0.3 mg/dL (0.3-1.0); Globulin 2.1 g/dL (2.4-3.5); Total Protein 4.6 g/dL (6.4-8.9)
[2019-04-07 11:50] LABS: Chol/HDL Ratio 2.7 (0-4.9)
[2019-04-07] MEDS: Ipratropium/Albuterol Neb 3 ML IH SCH ×3 (16:21→23:04)
[2019-04-07] MEDS: Lisinopril 20 MG TABLET PO SCH (23:05)
[2019-04-07] MEDS: Aspirin 81 MG TAB.CHEW PO SCH (23:05)
[2019-04-08] MEDS: Ipratropium/Albuterol Neb 3 ML IH SCH ×4 (03:56→22:10)
[2019-04-08] MEDS: *HR* Heparin 5,000 UNIT/ML VIAL SQ SCH ×2 (06:43→17:24)
[2019-04-08 06:51] LABS: Hematocrit 25.9 % (35.3-44.9); Hemoglobin 8.9 g/dL (11.5-15.4); Mean Corpuscular HGB Conc 34.4 g/dL (31.6-35.5); Mean Corpuscular Hemoglobin 32.1 pg (28.0-33.3); Mean Corpuscular Volume 93.5 fL (83.0-100.0); Mean Platelet Volume 10.2 fL (9.4-12.4); Platelet Count 204 K/mcL (140-400); Red Blood Count 2.77 M/mcL (3.82-4.97); Red Cell Distribution Width 12.7 % (11.5-14.5); White Blood Count 9.1 K/mcL (4.3-11.1)
[2019-04-08 07:33] LABS: Folate > 22.3 ng/mL (3.0-16.0); Vitamin B12 368 pg/mL (250-1100)
--- NOTE | 2019-04-08 08:08 | Internal Med Progress Note ---
<Elba Montoya - Last Filed: 04/08/19 13:39> Hospitalist Progress Note - Encounter Date of Encounter: 04/08/19 Time of Encounter: 13:39 - Exam Vitals: Temp Pulse Resp BP Pulse Ox 98.0 F 82 14 166/68 98 04/08/19 11:23 04/08/19 11:23 04/08/19 11:23 04/08/19 11:23 04/08/19 11:23 - Assessment and Plan (1) DMII (diabetes mellitus, type 2) Current Visit: Yes Status: Chronic (2) HTN (hypertension) Current Visit: Yes Status: Chronic (3) Acute renal failure Current Visit: Yes Status: Acute (4) Chest pain Current Visit: Yes Status: Resolved (5) UTI (urinary tract infection) Current Visit: Yes Status: Acute (6) Anemia Current Visit: Yes Status: Acute (7) Hypokalemia Current Visit: Yes Status: Acute (8) Pancreatitis Current Visit: Yes Status: Acute (9) Hypomagnesemia Current Visit: Yes Status: Acute - Time Spent with Patient Total time spent is greater than 50% in coordination of care (as documented) at patient's floor/unit and/or counseling patient: Internal Medicine: Result - Labs CBC & Chem 7: 04/08/19 06:21 04/08/19 06:21 Labs: Short CBC 04/08/19 Range/Units 06:21 WBC 9.1 (4.3-11.1) K/mcL Hgb 8.9 L (11.5-15.4) g/dL Hct 25.9 L (35.3-44.9) % Plt Count 204 (140-400) K/mcL BMP 04/08/19 06:21 Sodium 136 Potassium 3.6 Chloride 103 Carbon Dioxide 23 BUN 9 Creatinine 1.04 Glucose 145 H Calcium 8.0 L Consult Discharge Plan - Plan Referrals: Zaki Brown DO [Primary Care Provider] - - Attending Attestation I saw evaluated and examined this patient and my medical decision-making was reviewed with the Resident Physician. I agree with the documented findings, disposition and treatment plan as described except to any changes set forth below. We independently had [id number] contact with the patient. Patient is doing well today. Denies any abdominal pain. No nausea or vomiting. No pedal edema on examination. Creatinine back to baseline. However her lipase level is elevated at 671. Up from 414 yesterday. Also her blood pressure remains poorly controlled. We will increase amlodipine dosage. Continue clears and advance diet as tolerated. Continue treatment for pneumonia with Levaquin to complete 7 day course. Patient was evaluated by physical therapy and recommended placement to skilled rehabilitation. 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 Given her pancreatitis, will give some more fluid today intravenously. Reassess in the morning. <Minor Mauricio - Last Filed: 04/08/19 19:59> Hospitalist Progress Note - Encounter Date of Encounter: 04/08/19 Time of Encounter: 08:07 - Subjective Interval History: Patient seen this am, no complaints. Wanting to go home. Patient able to ambulate to restroom with walker. - Exam Vitals: Temp Pulse Resp BP Pulse Ox 98.3 F 72 16 186/79 98 04/08/19 04:22 04/08/19 04:22 04/08/19 04:32 04/08/19 04:22 04/08/19 04:32 Exam: General: Patient is alert, no acute distress, oriented x 3, obese Respiratory: Good respiratory effort. No wheezing, no crackles. Cardiovascular: S1 S2, regular rate and rhythm. No murmurs rubs or gallops. No pedal edema Abdomen: Abdomen is soft, non-tender. No guarding or rigidity. Bowel sounds are present Musculoskeletal: Spontaneously moving all extremities, strength 4/5 in R lower extremity. Skin: warm, dry. Neuro: Alert oriented x 3 no focal deficits Psych: normal mood, normal affect - Assessment and Plan (1) Pancreatitis Current Visit: Yes Status: Acute Assessment and Plan: Pt reported generalized abdominal pain during dialysis on 03/26/19 CT abdomen/pelvis on 04/06/19 showed possible pancreatitis Patient requesting to advance diet. Reports no abdominal pain on clear liquid diet. Lipase 414>671, Advance Diet, No abdominal pain, No tenderness, rigidity or guarding. Repeat Lipase tomorrow (2) Hypomagnesemia Current Visit: Yes Status: Acute Assessment and Plan: Mag 1.3, supplement Magnesium, continue monitoring. (3) UTI (urinary tract infection) Current Visit: Yes Status: Acute Assessment and Plan: Urinalysis grew Klebsiella Pneumonia. Rocephin IV switched to Levaquin, today is day 6 of Rocephin, day 1 of Levofloxacin. To Complete 7 days of therapy. (4) DMII (diabetes mellitus, type 2) Current Visit: Yes Status: Chronic Assessment and Plan: Continue diabetic diet and sliding scale insulin. Low dose GLucose trending 130's - 140's. On glipizide at home. (5) Hypokalemia Current Visit: Yes Status: Resolved Assessment and Plan: Patient on IV fluids with K. Continue until 04/09/19 2.7 yesterday, 3.6 today. BMP pending in am (6) Acute renal failure Current Visit: Yes Status: Acute Assessment and Plan: Pt began HD on 04/04/19 for clearance and volume management. Patient is post hemodialysis. Monitor renal function. Monitor Ins and outs. Repleted hypokalemia and hypomagnesemia (7) HTN (hypertension) Current Visit: Yes Status: Chronic Assessment and Plan: Continue home Amlodipine. Resume Lisinopril (8) Chest pain Current Visit: Yes Status: Resolved Assessment and Plan: Resolved. EF 65%. Troponin 0.30 on 04/06/19. Likely demand ischemia (9) Anemia Current Visit: Yes Status: Acute Assessment and Plan: Hgb 11.8 on Admission, 8.9 now. Possible dilutional No active bleeding -No hematochezia -brown stools -No hematemesis CBC pending in am, monitoring Diverticulosis on COlonoscopy 06/18/17 (10) Sleep difficulties Current Visit: Yes Status: Acute Assessment and Plan: Resumed home Ambien DVT Prophylaxis: Subcutaneous Heparin - Summary of Assessment and Plan Summary of Assessment and Plan: Acute renal failure with severe hyperkalemia: No dialysis planned for today. Creatinine 1.93 but patient dialyzed yesterday. Monitor renal function panel. Monitor input and output. Patient has hypokalemia today. Replete orally. Diabetes mellitus type 2: Continue diabetic diet and sliding scale insulin. Essential hypertension: Continue amlodipine. Continue to hold lisinopril. Chest pain: This has now resolved. EF 65% on 2-D echocardiogram. Abdominal pain: Etiology uncertain. Will obtain CT scan with oral contrast. CT of the abdomen and pelvis done initially in the ER did not show any acute process. History of prior CVA: Continue aspirin and statin. Possible urinary tract infection: On ceftriaxone. Urine growing gram-negative rods. DVT prophylaxis with subcutaneous heparin. Patient remains at moderate risk for complications - Time Spent with Patient Total time spent is greater than 50% in coordination of care (as documented) at patient's floor/unit and/or counseling patient: Internal Medicine: Result - Labs CBC & Chem 7: 04/08/19 06:21 04/08/19 06:21 Labs: Short CBC 04/08/19 Range/Units 06:21 WBC 9.1 (4.3-11.1) K/mcL Hgb 8.9 L (11.5-15.4) g/dL Hct 25.9 L (35.3-44.9) % Plt Count 204 (140-400) K/mcL BMP 04/07/19 05:05 Sodium 136 Potassium 2.7 L Chloride 105 Carbon Dioxide 23 BUN 10 Creatinine 1.21 H Glucose 109 H Calcium 6.6 L Liver Function 04/07/19 Range/Units 05:05 Total Bilirubin 0.3 (0.3-1.0) mg/dL Direct Bilirubin 0.1 (0.0-0.2) mg/dL AST 18 (13-39) Units/L ALT 13 (7-52) Units/L Alkaline Phosphatase 54 (34-104) Units/L Albumin 2.5 L (3.5-5.7) g/dL <Elba Montoya - Last Filed: 04/08/19 13:39> (1) DMII (diabetes mellitus, type 2) Qualifiers: Diabetes mellitus longterm insulin use: without longterm use Diabetes mellitus complication status: with hypoglycemia Diabetes mellitus complication detail: without coma Qualified Code(s): E11.649 - Type 2 diabetes mellitus with hypoglycemia without coma (2) HTN (hypertension) Qualifiers: Hypertension type: essential hypertension Qualified Code(s): I10 - Essential (primary) hypertension (3) Acute renal failure Qualifiers: Acute renal failure type: with acute tubular necrosis Qualified Code(s): N17.0 - Acute kidney failure with tubular necrosis (4) Chest pain Qualifiers: Chest pain type: other chest pain Qualified Code(s): R07.89 - Other chest pain; R07.8 - Other chest pain (5) UTI (urinary tract infection) Qualifiers: Urinary tract infection type: acute cystitis Hematuria presence: without hematuria Qualified Code(s): N30.00 - Acute cystitis without hematuria (6) Anemia Qualifiers: Anemia type: unspecified type Qualified Code(s): D64.9 - Anemia, unspecified (8) Pancreatitis Qualifiers: Chronicity: acute Pancreatitis type: unspecified pancreatitis type Acute pancreatitis complication: no infection or necrosis Qualified Code(s): K85.90 - Acute pancreatitis without necrosis or infection, unspecified <Minor Mauricio L - Last Filed: 04/08/19 19:59> (1) Pancreatitis Qualifiers: Chronicity: acute Pancreatitis type: unspecified pancreatitis type Acute pancreatitis complication: no infection or necrosis Qualified Code(s): K85.90 - Acute pancreatitis without necrosis or infection, unspecified (3) UTI (urinary tract infection) Qualifiers: Urinary tract infection type: acute cystitis Hematuria presence: without hematuria Qualified Code(s): N30.00 - Acute cystitis without hematuria (4) DMII (diabetes mellitus, type 2) Qualifiers: Diabetes mellitus longterm insulin use: without longterm use Diabetes mellitus complication status: with hypoglycemia Diabetes mellitus complication detail: without coma Qualified Code(s): E11.649 - Type 2 diabetes mellitus with hypoglycemia without coma (6) Acute renal failure Qualifiers: Acute renal failure type: with acute tubular necrosis Qualified Code(s): N17.0 - Acute kidney failure with tubular necrosis (7) HTN (hypertension) Qualifiers: Hypertension type: essential hypertension Qualified Code(s): I10 - Essential (primary) hypertension (8) Chest pain Qualifiers: Chest pain type: other chest pain Qualified Code(s): R07.89 - Other chest pain; R07.8 - Other chest pain (9) Anemia Qualifiers: Anemia type: unspecified type Qualified Code(s): D64.9 - Anemia, unspecified
[2019-04-08] MEDS: Sucralfate 1 GM TABLET PO SCH ×4 (08:43→21:08)
[2019-04-08] MEDS: levoFLOXacin 750 MG TABLET PO SCH (08:43)
[2019-04-08] MEDS: cefTRIAXone 1,000 MG in Water for inj. (sterile) 10 ML IVP SCH (08:43)
[2019-04-08] MEDS: amLODIPine 5 MG TABLET PO SCH (08:43)
[2019-04-08] MEDS: Insulin LISPRO 300 UNITS/3 ML VIAL SQ SCH ×4 (08:44→21:08)
[2019-04-08 09:10] LABS: % Iron Saturation 17 % (15-50); BUN/Creatinine Ratio 9 (6-26); Blood Urea Nitrogen 9 mg/dL (8-23); Carbon Dioxide 23 mEq/L (23-29); Chloride 103 mEq/L (98-107); Ferritin 176 ng/mL (10-120); Glucose 145 mg/dL (70-105); Iron 43 mcg/dL (50-170); Lipase 671 Units/L (11-82); Magnesium 1.3 mg/dL (1.6-2.6); Osmolality,Calculated 283 (280-300); Potassium 3.6 mEq/L (3.5-5.1); Sodium 136 mEq/L (136-145); Transferrin 181 mg/dL (203-362); eGFR For African Americans > 60 (> 60); eGFR For Non-African Americans 52 (> 60)
[2019-04-08] MEDS ORDERED: amLODIPine 5 MG TABLET PO ONE (09:14)
[2019-04-08 11:27] LABS: ANA IgG by ELISA NONE DETECTED (None Detected)
[2019-04-08 11:30] LABS: Myeloperoxidase Ab 0 AU/mL (0-19); Serine Protease-3 Antibody 1 AU/mL (0-19)
[2019-04-08 11:31] LABS: GBM IgG Multiplex Bead Assay 0 AU/mL (0-19); Glomerular Basement Memb IgG NEGATIVE (Negative)
--- NOTE | 2019-04-08 11:36 | Nephrology Progress Note ---
Date of Encounter: 04/08/19 Time of Encounter: 09:15 - Assessment and Plan (1) AWNDA (acute kidney injury) Current Visit: Yes Status: Acute Her renal function continues to improve, and the dialysis catheter was removed yesterday. From a nephrology perspective, I recommend resuming her lisinopril, but not the metformin or meloxicam at discharge. Her blood pressures are elevated and this is why I recommed resumption of the SAY inhibitor. She should have a basic metabolic panel rechecked in about one week after discharge with outpatient nephrology follow-up in 3-5 weeks. Continue to follow a renal protective strategy as able with strict I's and O's, daily weights, avoidance of nephrotoxins, and renal dosing. At this point, I will politely sign off, but please feel free to call or page me with any renal questions. Thank you (2) Hypokalemia Current Visit: Yes Status: Acute Improved (3) Hyponatremia Current Visit: Yes Status: Acute Improved (4) Anemia Current Visit: Yes Status: Acute Will monitor Qualifiers: Anemia type: unspecified type Qualified Code(s): D64.9 - Anemia, u nspecified (5) Proteinuria Current Visit: Yes Status: Acute Qualifiers: Proteinuria type: persistent Qualified Code(s): R80.1 - Persistent proteinuria, unspecified Subjective Principal diagnosis: WANDA Interval history: The patient was seen and examined earlier today, and she reported feeling significantly better. She did complain of lower back pain, but said that the onset was prior to this admission and chronic. She did not affirm nausea, vomiting, or diminished appetite. During my interview and exam, her hospitalist was present as well. Objective - Vital Signs Vital signs: Vital Signs Temp Pulse Resp BP Pulse Ox 04/08/19 11:23 98.0 F 82 14 166/68 98 04/08/19 10:46 18 99 04/08/19 09:51 188/89 04/08/19 08:00 98.3 F 76 14 195/74 97 04/08/19 04:32 16 98 04/08/19 04:22 98.3 F 72 20 186/79 96 04/08/19 01:18 98.2 F 91 14 162/58 95 04/07/19 23:04 18 94 04/07/19 22:03 98.2 F 66 14 152/54 89 04/07/19 16:31 16 96 04/07/19 16:15 97.8 F 67 18 170/73 96 Intake and Output 04/07/19 04/08/19 04/08/19 23:59 07:59 15:59 Intake Total 180 / 889 360 / 480 120 / 480 Output Total 300 / 375 200 / 200 Balance -120 / 514 160 / 280 120 / 280 Intake: Oral 180 / 660 360 / 480 120 / 480 Output: Urine 300 / 375 200 / 200 Other: Meal Dinner Breakfast Percent of Meal Consumed 5% 10% Stool Size Small Small Stool Consistency soft loose Stool Characteristics Normal for Patient Stool Color Brown Brown # Voids 1 # Bowel Movements 1 Weight 75.5 kg Blood Glucose* 120 138 Patient Weight 04/08/19 23:59 Weight 75.5 kg - General Appearance Exam: General appearance: Present: well-developed, well-nourished, obese EENT: Present: ATNC, PERRL, mucous membranes moist Neck: Present: supple, and the right sided dressing was well adhered Respiratory: Present: course bilaterally Cardiology: Present: no edema, regular rate, regular rhythm, normal S1, normal S2 Gastrointestinal: Present: normoactive bowel sounds, no guarding, obese Integumentary: Present: no rash, warm and dry Neurologic: Present: asterixis, alert and oriented x3 Musculoskeletal: Present: no erythema, no cyanosis, no clubbing Psychiatric: Present: mood/affect appropriate, cooperative - Lab 04/08/19 06:21 04/08/19 06:21 Most recent lab results 04/08/19 06:21 Calcium 8.0 L Magnesium 1.3 L Consult Discharge Plan - Plan Referrals: Zaki Brown DO [Primary Care Provider] -
[2019-04-08] MEDS ORDERED: 0.9 % Sodium Chloride 1,000 ML IVC SCH (11:45)
[2019-04-08] MEDS: Gabapentin 100 MG CAPSULE PO SCH ×2 (15:04→21:09)
[2019-04-08 18:07] LABS: Kappa Qnt Free Light Chains 4.07 mg/dL (0.33-1.94); Lambda Qnt Free Light Chains 2.1 mg/dL (0.57-2.63)
[2019-04-08 19:55] LABS: Alpha 2 Globulin (PEP) 0.68 g/dL (0.48-1.05); Beta Globulin (PEP) 0.55 g/dL (0.48-1.10)
[2019-04-08] MEDS: Lisinopril 20 MG TABLET PO SCH (21:08)
[2019-04-08] MEDS: Aspirin 81 MG TAB.CHEW PO SCH (21:09)
[2019-04-09] MEDS: Ipratropium/Albuterol Neb 3 ML IH SCH ×3 (03:43→16:21)
[2019-04-09] MEDS: *HR* Heparin 5,000 UNIT/ML VIAL SQ SCH (05:48)
[2019-04-09 06:47] LABS: Basophils % 0.4 %; Eosinophils # 0.3 K/mcL (0.0-0.6); Hematocrit 29.3 % (35.3-44.9); Hemoglobin 10.1 g/dL (11.5-15.4); Immature Granulocytes % 0.3 % (0-4); Lymphocytes # 2.4 K/mcL (0.6-4.6); Lymphocytes % 22.8 %; Mean Corpuscular HGB Conc 34.5 g/dL (31.6-35.5); Mean Corpuscular Hemoglobin 31.6 pg (28.0-33.3); Mean Corpuscular Volume 91.6 fL (83.0-100.0); Mean Platelet Volume 9.8 fL (9.4-12.4); Monocytes # 0.7 K/mcL (0.0-1.3); Monocytes % 6.5 %; Neutrophils # 7.1 K/mcL (1.6-8.9); Platelet Count 278 K/mcL (140-400); Red Cell Distribution Width 13.2 % (11.5-14.5); White Blood Count 10.5 K/mcL (4.3-11.1)
[2019-04-09 07:09] LABS: BUN/Creatinine Ratio 7 (6-26); Blood Urea Nitrogen 7 mg/dL (8-23); Calcium 8.5 mg/dL (8.6-10.3); Carbon Dioxide 19 mEq/L (23-29); Chloride 104 mEq/L (98-107); Glucose 139 mg/dL (70-105); Lipase 513 Units/L (11-82); Osmolality,Calculated 280 (280-300); Potassium 4.2 mEq/L (3.5-5.1); Sodium 135 mEq/L (136-145); eGFR For African Americans > 60 (> 60); eGFR For Non-African Americans 59 (> 60)
[2019-04-09 07:36] VITALS: BP 161/65
--- NOTE | 2019-04-09 08:52 | Internal Med Progress Note ---
Hospitalist Progress Note - Encounter Date of Encounter: 04/09/19 Time of Encounter: 08:52 - Exam Vitals: Temp Pulse Resp BP Pulse Ox 98.5 F 83 18 161/65 97 04/09/19 07:29 04/09/19 07:29 04/09/19 07:29 04/09/19 07:29 04/09/19 07:29 - Assessment and Plan (1) Pancreatitis Current Visit: Yes Status: Acute (2) Hypomagnesemia Current Visit: Yes Status: Acute (3) UTI (urinary tract infection) Current Visit: Yes Status: Acute (4) DMII (diabetes mellitus, type 2) Current Visit: Yes Status: Chronic (5) Hypokalemia Current Visit: Yes Status: Resolved (6) Acute renal failure Current Visit: Yes Status: Acute (7) HTN (hypertension) Current Visit: Yes Status: Chronic (8) Chest pain Current Visit: Yes Status: Resolved (9) Anemia Current Visit: Yes Status: Acute (10) Sleep difficulties Current Visit: Yes Status: Acute - Time Spent with Patient Total time spent is greater than 50% in coordination of care (as documented) at patient's floor/unit and/or counseling patient: Internal Medicine: Result - Labs CBC & Chem 7: 04/09/19 06:28 04/09/19 06:28 Labs: Short CBC 04/09/19 Range/Units 06:28 WBC 10.5 (4.3-11.1) K/mcL Hgb 10.1 L (11.5-15.4) g/dL Hct 29.3 L (35.3-44.9) % Plt Count 278 (140-400) K/mcL Neutrophils # 7.1 (1.6-8.9) K/mcL BMP 04/08/19 04/09/19 06:21 06:28 Sodium 136 135 L Potassium 3.6 4.2 Chloride 103 104 Carbon Dioxide 23 19 L BUN 9 7 L Creatinine 1.04 0.94 Glucose 145 H 139 H Calcium 8.0 L 8.5 L - Impressions Impressions Abdomen/Pelvis CT 04/06/19 16:00 IMPRESSION: Bilateral pleural effusions with overlying atelectatic changes and ascites within the abdomen. The pancreas appears prominent and enlarged when compared to the prior CT scan with some minimal stranding around the tail of the pancreas. These findings may be secondary to early changes of pancreatitis. D/ / 04/06/2019 16:56:17 Jarrett Daily MD / [email or web address] Interpreting Provider: Jarrett Daily MD Consult Discharge Plan - Plan Referrals: Zaki Brown DO [Primary Care Provider] - (1) Pancreatitis Qualifiers: Chronicity: acute Pancreatitis type: unspecified pancreatitis type Acute pancreatitis complication: no infection or necrosis Qualified Code(s): K85.90 - Acute pancreatitis without necrosis or infection, unspecified (3) UTI (urinary tract infection) Qualifiers: Urinary tract infection type: acute cystitis Hematuria presence: without hematuria Qualified Code(s): N30.00 - Acute cystitis without hematuria (4) DMII (diabetes mellitus, type 2) 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: 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 use Diabetes mellitus complication status: with hypoglycemia Diabetes mellitus complication detail: without coma Qualified Code(s): E11.649 - Type 2 diabetes mellitus with hypoglycemia without coma (6) Acute renal failure Qualifiers: Acute renal failure type: with acute tubular necrosis Qualified Code(s): N17.0 - Acute kidney failure with tubular necrosis (7) HTN (hypertension) Qualifiers: Hypertension type: essential hypertension Qualified Code(s): I10 - Essential (primary) hypertension (8) Chest pain Qualifiers: Chest pain type: other chest pain Qualified Code(s): R07.89 - Other chest pain; R07.8 - Other chest pain (9) Anemia Qualifiers: Anemia type: unspecified type Qualified Code(s): D64.9 - Anemia, unspecified
[2019-04-09] MEDS ORDERED: amLODIPine 5 MG TABLET PO SCH (09:00)
[2019-04-09] MEDS: Insulin LISPRO 300 UNITS/3 ML VIAL SQ SCH ×2 (09:01→12:32)
[2019-04-09] MEDS: Gabapentin 100 MG CAPSULE PO SCH ×2 (09:13→14:21)
[2019-04-09] MEDS: levoFLOXacin 750 MG TABLET PO SCH (09:14)
[2019-04-09] MEDS: Sucralfate 1 GM TABLET PO SCH ×2 (09:14→12:31)
[2019-04-09 10:42] LABS: Immunoglobulin A 128 mg/dL (68-408); Immunoglobulin G 631 mg/dL (768-1632); Immunoglobulin M 53 mg/dL (35-263)
[2019-04-09 10:43] LABS: IFE Reflexed IFE Done
--- NOTE | 2019-04-09 14:33 | Discharge Summary ---
<Minor Mauricio L - Last Filed: 04/09/19 15:20> - NOTES TO OUTPATIENT PROVIDER Notes to Outpatient Provider: Pt seen and treated for WANDA, UTI, and pancreatitis. She received hemodialysis twice during her stay. Renal function improved significantly following hemodialysis. Nephrology recommendations were to discontinue metformin and meloxicam Lasix was also held at discharge. She is to follow up with nephrology in 3-5 weeks. UTI was treated with 7 days of antibiotic therapy. Pancreatitis was treated conservatively. Pain resolved following following 2 days of clear liquid diet. Lipase numbers down trending at discharge. Normal diet tolerated at discharge. Orders not resulted at time of discharge: Pending orders 04/05/19 14:55 CHANDLER IgG MARIO rflx IFA Routine Anti-DNA DS, IgG with reflex Routine GBM IgG by IFA and Mult Bead Routine MPO/PR3 (ANCA) Antibodies Routine PLA2 Receptor IgG Routine 04/06/19 04:25 Antiphospholipid Ab High Spec AM 0400 04/10/19 04:00 BMP [Basic Metabolic Panel] AM 0400 04/11/19 04:00 BMP [Basic Metabolic Panel] AM 0400 Date of Encounter: 04/09/19 Time of Encounter: 14:28 - Discharge Diagnosis (1) UTI (urinary tract infection) Priority: Primary Status: Acute Qualifiers: Urinary tract infection type: acute cystitis Hematuria presence: without hematuria Qualified Code(s): N30.00 - Acute cystitis without hematuria (2) Pancreatitis Priority: Primary Status: Acute Qualifiers: Chronicity: acute Pancreatitis type: unspecified pancreatitis type Acute pancreatitis complication: no infection or necrosis Qualified Code(s): K85.90 - Acute pancreatitis without necrosis or infection, unspecified (3) Hypomagnesemia Priority: Secondary Status: Acute (4) DMII (diabetes mellitus, type 2) Priority: Secondary Status: Chronic Qualifiers: Diabetes mellitus skilled nursing insulin use: without skilled nursing use Diabetes mellitus complication status: with hypoglycemia Diabetes mellitus complication detail: without coma Qualified Code(s): E11.649 - Type 2 diabetes mellitus with hypoglycemia without coma (5) Hypokalemia Priority: Secondary Status: Resolved (6) Acute renal failure Priority: Secondary Status: Acute Qualifiers: Acute renal failure type: with acute tubular necrosis Qualified Code(s): N17.0 - Acute kidney failure with tubular necrosis (7) HTN (hypertension) Priority: Secondary Status: Chronic Qualifiers: Hypertension type: essential hypertension Qualified Code(s): I10 - Essential (primary) hypertension (8) Chest pain Priority: Secondary Status: Resolved Qualifiers: Chest pain type: other chest pain Qualified Code(s): R07.89 - Other chest pain; R07.8 - Other chest pain (9) Anemia Priority: Secondary Status: Acute Qualifiers: Anemia type: unspecified type Qualified Code(s): D64.9 - Anemia, unspecified (10) Sleep difficulties Priority: Secondary Status: Acute Hospital course: Ms. Goins is a 73 year old female with a past history of diabetes who presented to the ER with complaints of generalized weakness along with nausea and vomiting and diarrhea. She was admitted on 04/02/19. On admission she had an elevated white blood cell count. As well as hyperkalemia. Nephrology was consulted. Urine specimen showed evidence of urinary tract infection. Patient was oliguric and renal function did not improve. Medical management did not improve hypokalemia or hyponatremia. Patient was offered hemodialysis as renal replacement therapy and she agreed. Patient received hemodialysis 2 times, on 04/04/19 and 04/05/19. Renal function rapidly improved. Hemodialysis was discontinued on 04/06/19. During dialysis patient reported abdominal pain. Subsequent CT abdomen showed evidence of pancreatitis. Patient was placed on clear liquid diet. Normal diet resumed on 04/08/19 patient tolerated normal diet well and reported no longer having abdominal pain. Lipase levels were down trending at discharge. Patient was placed on a 1 week course of Rocephin for her UTI, changed to Levaquin on day 6 last dose given on day of discharge. Urine cultures grew Klebsiella pneumoniae. Patient to follow-up with nephrology in 3-5 weeks. Discharge discussed with: patient - Time Spent with Patient Total time spent providing and/or coordinating discharge services: - Discharge Medications Prescriptions: New amLODIPine [Norvasc] 10 mg PO DAILY #30 tablet Continued Sertraline [Zoloft] 50 mg PO DAILY Multivitamin [One Daily Multivitamin] 1 each PO DAILY Aspirin 81 mg PO HS Atorvastatin Calcium [Lipitor] 20 mg PO DAILY Calcium Carb/D3/Magnesium/Zinc [Arthur Mag Zinc-D Tablet] 1 tab PO DAILY Cholecalciferol (D-3) [Vitamin D] 1,000 unit PO DAILY Pantoprazole Sodium 40 mg PO HS Sucralfate [Carafate] 1 gm PO TID Albuterol Sulfate [Ventolin Hfa] 2 puff IH Q6H PRN PRN Reason: Shortness Of Breath Cyclobenzaprine HCl 5 mg PO BID PRN PRN Reason: Muscle Spasm GlipiZIDE [Glipizide Xl] 5 mg PO DAILY Levothyroxine [Synthroid] 125 mcg PO 0630 Lisinopril [Zestril] 40 mg PO HS Mirabegron [Myrbetriq] 50 mg PO DAILY Zolpidem [Ambien] 10 mg PO HS Discontinued Furosemide [Lasix] 20 mg PO DAILY Meloxicam 15 mg PO DAILY Metformin HCl 1,000 mg PO BID Home Medications: Aspirin 81 mg PO HS 11/13/16 [History] Multivitamin [One Daily Multivitamin] 1 each PO DAILY 11/13/16 [History] Sertraline [Zoloft] 50 mg PO DAILY 11/13/16 [History] Atorvastatin Calcium [Lipitor] 20 mg PO DAILY 04/17/17 [History] Calcium Carb/D3/Magnesium/Zinc [Arthur Mag Zinc-D Tablet] 1 tab PO DAILY 08/08/17 [History] Cholecalciferol (D-3) [Vitamin D] 1,000 unit PO DAILY 08/08/17 [History] Pantoprazole Sodium 40 mg PO HS 08/08/17 [History] Sucralfate [Carafate] 1 gm PO TID 12/14/17 [History] Albuterol Sulfate [Ventolin Hfa] 2 puff IH Q6H PRN 03/11/19 [History] Cyclobenzaprine HCl 5 mg PO BID PRN 03/11/19 [History] GlipiZIDE [Glipizide Xl] 5 mg PO DAILY 03/11/19 [History] Levothyroxine [Synthroid] 125 mcg PO 0630 03/11/19 [History] Lisinopril [Zestril] 40 mg PO HS 03/11/19 [History] Mirabegron [Myrbetriq] 50 mg PO DAILY 03/11/19 [History] Zolpidem [Ambien] 10 mg PO HS 04/03/19 [History] amLODIPine [Norvasc] 10 mg PO DAILY #30 tablet 04/09/19 [Rx] Allergies/Adverse Reactions: Allergy/AdvReac Type Severity Reaction Status Date / Time ayana flavor Allergy Swelling Verified 04/02/19 12:19 of Lip/Tongue/Throat Sulfa (Sulfonamide AdvReac Unknown See Verified 04/02/19 12:19 Antibiotics) Comments Date of admission: 04/02/19 19:17 Primary care physician: Sohail Brown DO Consults: 04/03/19 10:13 Consult to Nephrology [CONS] Routine Consulting Provider: Kidney Roxie/WENDY/AURORA/SARITA Reason for Consult: WANDA/ HyperK Time Notified: 10:13 Call Completed: Yes 04/04/19 08:37 Consult to Interventional Radiology [CONS] Routine Consulting Provider: Radiology Interventional Cols Reason for Consult: Removal of HD cath per nephrology recs. Call Completed: Yes 04/04/19 08:45 Consult to Dialysis [CONS] ONCE 04/05/19 07:45 Consult to Dialysis [CONS] ONCE 04/07/19 09:15 Consult to Physical Therapy [CONS] Routine Comment: Evaluate, develop and implement POC Reason for Consult: weakness Does patient have active BEDREST order?: No Is patient medically & hemodynamically stable?: Yes Patient assessed for mobility or mobilized this visit?: No OT [Consult to Occupational Therapy] [CONS] Routine Comment: Evaluate, develop and implement POC Reason for Consult: weakness Does patient have active BEDREST order?: Yes Is patient medically & hemodynamically stable?: No Patient assessed for mobility or mobilized this visit?: Yes Discharging clinician: Minor Mauricio Anticipated date of discharge: 04/09/19 - Constitutional Vitals: Temp Pulse Resp BP Pulse Ox 98.5 F 83 16 161/65 97 04/09/19 07:29 04/09/19 07:29 04/09/19 10:34 04/09/19 07:29 04/09/19 10:34 General appearance: Present: cooperative, A&O X 3, severe distress, answers questions appropriately Exam: General: Patient is alert, no acute distress, oriented x 3, obese HEENT: PERRLA, MMM Respiratory: Good respiratory effort. No wheezing, no crackles. Cardiovascular: S1 S2, regular rate and rhythm. No murmurs rubs or gallops. No pedal edema Abdomen: Abdomen is soft, non-tender. No guarding or rigidity. Bowel sounds are present Musculoskeletal: Spontaneously moving all extremities, strength 4/5 in R lower extremity. Skin: warm, dry. Bruises noted on forearms. Neuro: Alert oriented x 3 no focal deficits Psych: normal mood, normal affect - Patient Status Disposition: Home, Self-Care Condition: Good Functional capacity at discharge: uses cane/walker Overall status at discharge: patient is progressing back to baseline - Ambulatory Orders Ambulatory Orders: Basic Metabolic Panel [CHEM] Time Frame: 1 Week, Location: Determined By Patient - Discharge Instructions Instructions: Amlodipine (By mouth), Chest Pain (DC), Acute Kidney Injury (DC), Urinary Tract Infection in Women (DC), Gastroenteritis (DC), Anemia (GEN) Follow Up With: Zaki Brown DO [Primary Care Provider] - Kirk Cedillo DO [Partnered Physician] - - Diet and Activity Activity: increase activity as tolerated Diet: advance to your usual diet <Chad Jj - Last Filed: 04/09/19 18:30> Orders not resulted at time of discharge: Pending orders 04/05/19 14:55 CHANDLER IgG MARIO rflx IFA Routine Anti-DNA DS, IgG with reflex Routine GBM IgG by IFA and Mult Bead Routine MPO/PR3 (ANCA) Antibodies Routine PLA2 Receptor IgG Routine 04/06/19 04:25 Antiphospholipid Ab High Spec AM 0400 04/10/19 04:00 BMP [Basic Metabolic Panel] AM 0400 04/11/19 04:00 BMP [Basic Metabolic Panel] AM 0400 Date of Encounter: 04/09/19 - Discharge Diagnosis (1) DMII (diabetes mellitus, type 2) Status: Chronic Qualifiers: Diabetes mellitus 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: without va underwriter use Diabetes mellitus complication status: with hypoglycemia Diabetes mellitus complication detail: without coma Qualified Code(s): E11.649 - Type 2 diabetes mellitus with hypoglycemia without coma (2) HTN (hypertension) Status: Chronic Qualifiers: Hypertension type: essential hypertension Qualified Code(s): I10 - Essential (primary) hypertension (3) Acute renal failure Status: Acute Qualifiers: Acute renal failure type: with acute tubular necrosis Qualified Code(s): N17.0 - Acute kidney failure with tubular necrosis (4) Chest pain Status: Resolved Qualifiers: Chest pain type: other chest pain Qualified Code(s): R07.89 - Other chest pain; R07.8 - Other chest pain (5) UTI (urinary tract infection) Status: Acute Qualifiers: Urinary tract infection type: acute cystitis Hematuria presence: without hematuria Qualified Code(s): N30.00 - Acute cystitis without hematuria (6) Anemia Status: Acute Qualifiers: Anemia type: unspecified type Qualified Code(s): D64.9 - Anemia, unspecified (7) Hypokalemia Status: Resolved (8) Pancreatitis Status: Acute Qualifiers: Chronicity: acute Pancreatitis type: unspecified pancreatitis type Acute pancreatitis complication: no infection or necrosis Qualified Code(s): K85.90 - Acute pancreatitis without necrosis or infection, unspecified (9) Hypomagnesemia Status: Acute Hospital course: Ms. Goins is a 73 year old female - Time Spent with Patient Total time spent providing and/or coordinating discharge services: Date of admission: 04/02/19 19:17 Primary care physician: Sohail Brown DO Consults: 04/03/19 10:13 Consult to Nephrology [CONS] Routine Consulting Provider: Kidney Roxie/WENDY/AURORA/SARITA Reason for Consult: WANDA/ HyperK Time Notified: 10:13 Call Completed: Yes 04/04/19 08:37 Consult to Interventional Radiology [CONS] Routine Consulting Provider: Radiology Interventional Cols Reason for Consult: Removal of HD cath per nephrology recs. Call Completed: Yes 04/04/19 08:45 Consult to Dialysis [CONS] ONCE 04/05/19 07:45 Consult to Dialysis [CONS] ONCE 04/07/19 09:15 Consult to Physical Therapy [CONS] Routine Comment: Evaluate, develop and implement POC Reason for Consult: weakness Does patient have active BEDREST order?: No Is patient medically & hemodynamically stable?: Yes Patient assessed for mobility or mobilized this visit?: No OT [Consult to Occupational Therapy] [CONS] Routine Comment: Evaluate, develop and implement POC Reason for Consult: weakness Does patient have active BEDREST order?: Yes Is patient medically & hemodynamically stable?: No Patient assessed for mobility or mobilized this visit?: Yes - Constitutional Vitals: Temp Pulse Resp BP Pulse Ox 98.5 F 83 16 161/65 97 04/09/19 07:29 04/09/19 07:29 04/09/19 10:34 04/09/19 07:29 04/09/19 10:34 - Attending Attestation I examined this patient and my medical decision-making was reviewed with the Resident Physician. I agree with the documented findings, disposition and treatment plan as described except to the extent set forth below. Patient stable for discharge. She is very weak and it is recommended that she discharge to SNF. However, she adamantly refuses. She exhibits medical deci sydni making capacity during our interview. She will be discharged home though we did speak to patient and son about concerns with going home instead of SNF.
--- NOTE | 2019-04-09 17:07 | Physician Discharge Referral ---
Home Health/Hosp Referral Info Transfer to: Home Health - Diagnosis (1) UTI (urinary tract infection) Priority: Primary Status: Acute (2) Pancreatitis Priority: Secondary Status: Acute (3) Hypomagnesemia Priority: Secondary Status: Acute (4) DMII (diabetes mellitus, type 2) Priority: Secondary Status: Chronic (5) Hypokalemia Priority: Secondary Status: Resolved (6) Acute renal failure Priority: Secondary Status: Acute (7) HTN (hypertension) Priority: Secondary Status: Chronic (8) Chest pain Priority: Secondary Status: Resolved (9) Anemia Priority: Secondary Status: Acute (10) Sleep difficulties Priority: Secondary Status: Acute - Respiratory Orders Smoking Cessation: Smoking cessation has been advised. For more information, call the [place] Tobacco Quit Line at 8-341-QQYX-NOW. - Services Needed Following services are medically necessary services: Physical Therapy, Occupational Therapy - Transfer Medications Prescriptions: amLODIPine [Norvasc] 10 mg PO DAILY #30 tablet Home Medications: Aspirin 81 mg PO HS 11/13/16 [History] Multivitamin [One Daily Multivitamin] 1 each PO DAILY 11/13/16 [History] Sertraline [Zoloft] 50 mg PO DAILY 11/13/16 [History] Atorvastatin Calcium [Lipitor] 20 mg PO DAILY 04/17/17 [History] Calcium Carb/D3/Magnesium/Zinc [Arthur Mag Zinc-D Tablet] 1 tab PO DAILY 08/08/17 [History] Cholecalciferol (D-3) [Vitamin D] 1,000 unit PO DAILY 08/08/17 [History] Pantoprazole Sodium 40 mg PO HS 08/08/17 [History] Sucralfate [Carafate] 1 gm PO TID 12/14/17 [History] Albuterol Sulfate [Ventolin Hfa] 2 puff IH Q6H PRN 03/11/19 [History] Cyclobenzaprine HCl 5 mg PO BID PRN 03/11/19 [History] GlipiZIDE [Glipizide Xl] 5 mg PO DAILY 03/11/19 [History] Levothyroxine [Synthroid] 125 mcg PO 0630 03/11/19 [History] Lisinopril [Zestril] 40 mg PO HS 03/11/19 [History] Mirabegron [Myrbetriq] 50 mg PO DAILY 03/11/19 [History] Zolpidem [Ambien] 10 mg PO HS 04/03/19 [History] amLODIPine [Norvasc] 10 mg PO DAILY #30 tablet 04/09/19 [Rx] Allergies/Adverse Reactions: Allergy/AdvReac Type Severity Reaction Status Date / Time ayana flavor Allergy Swelling Verified 04/02/19 12:19 of Lip/Tongue/Throat Sulfa (Sulfonamide AdvReac Unknown See Verified 04/02/19 12:19 Antibiotics) Comments Certification: Further, I certify that my clinical findings support that this patient is homebound (i.e. absences from home require considerable and taxing effort and are for medical reasons or [employer] services or infrequently or short duration when for other reasons) because: Homebound Reason: Leaving home requires considerable and taxing effort due to condition Attestation: My signature below is to certify that this patient is under my care and that I, or nurse practitioner, or a physician's assistant federal public defender working with me, has a [id number] encounter with this patient.
--- NOTE | 2019-04-09 17:19 | Physician Discharge Referral ---
Home Health/Hosp Referral Info Transfer to: Home Health - Diagnosis (1) UTI (urinary tract infection) Priority: Primary Status: Acute (2) Pancreatitis Priority: Secondary Status: Acute (3) Hypomagnesemia Priority: Secondary Status: Acute (4) DMII (diabetes mellitus, type 2) Priority: Secondary Status: Chronic (5) Hypokalemia Priority: Secondary Status: Resolved (6) Acute renal failure Priority: Secondary Status: Acute (7) HTN (hypertension) Priority: Secondary Status: Chronic (8) Chest pain Priority: Secondary Status: Resolved (9) Anemia Priority: Secondary Status: Acute (10) Sleep difficulties Priority: Secondary Status: Acute - Respiratory Orders Smoking Cessation: Smoking cessation has been advised. For more information, call the [place] Tobacco Quit Line at 8-959-BGCA-NOW. - Services Needed Following services are medically necessary services: Nursing, Home Health Aide - Transfer Medications Prescriptions: amLODIPine [Norvasc] 10 mg PO DAILY #30 tablet Home Medications: Aspirin 81 mg PO HS 11/13/16 [History] Multivitamin [One Daily Multivitamin] 1 each PO DAILY 11/13/16 [History] Sertraline [Zoloft] 50 mg PO DAILY 11/13/16 [History] Atorvastatin Calcium [Lipitor] 20 mg PO DAILY 04/17/17 [History] Calcium Carb/D3/Magnesium/Zinc [Arthur Mag Zinc-D Tablet] 1 tab PO DAILY 08/08/17 [History] Cholecalciferol (D-3) [Vitamin D] 1,000 unit PO DAILY 08/08/17 [History] Pantoprazole Sodium 40 mg PO HS 08/08/17 [History] Sucralfate [Carafate] 1 gm PO TID 12/14/17 [History] Albuterol Sulfate [Ventolin Hfa] 2 puff IH Q6H PRN 03/11/19 [History] Cyclobenzaprine HCl 5 mg PO BID PRN 03/11/19 [History] GlipiZIDE [Glipizide Xl] 5 mg PO DAILY 03/11/19 [History] Levothyroxine [Synthroid] 125 mcg PO 0630 03/11/19 [History] Lisinopril [Zestril] 40 mg PO HS 03/11/19 [History] Mirabegron [Myrbetriq] 50 mg PO DAILY 03/11/19 [History] Zolpidem [Ambien] 10 mg PO HS 04/03/19 [History] amLODIPine [Norvasc] 10 mg PO DAILY #30 tablet 04/09/19 [Rx] Allergies/Adverse Reactions: Allergy/AdvReac Type Severity Reaction Status Date / Time ayana flavor Allergy Swelling Verified 04/02/19 12:19 of Lip/Tongue/Throat Sulfa (Sulfonamide AdvReac Unknown See Verified 04/02/19 12:19 Antibiotics) Comments Certification: Further, I certify that my clinical findings support that this patient is homebound (i.e. absences from home require considerable and taxing effort and are for medical reasons or buddhism services or infrequently or short duration when for other reasons) because: Homebound Reason: Patient requires assistance of a person or device to safely leave home Attestation: My signature below is to certify that this patient is under my care and that I, or nurse practitioner, or a physician's staff physical therapy assistant working with me, has a [id number] encounter with this patient.
--- NOTE | 2019-04-09 17:33 | Physician Discharge Referral ---
Home Health/Hosp Referral Info Transfer to: Home Health - Diagnosis (1) UTI (urinary tract infection) Priority: Primary Status: Acute (2) Pancreatitis Priority: Secondary Status: Acute (3) Hypomagnesemia Priority: Secondary Status: Acute (4) DMII (diabetes mellitus, type 2) Priority: Secondary Status: Chronic (5) Hypokalemia Priority: Secondary Status: Resolved (6) Acute renal failure Priority: Secondary Status: Acute (7) HTN (hypertension) Priority: Secondary Status: Chronic (8) Chest pain Status: Resolved (9) Anemia Priority: Secondary Status: Acute (10) Sleep difficulties Priority: Secondary Status: Acute - Respiratory Orders Smoking Cessation: Smoking cessation has been advised. For more information, call the [place] Tobacco Quit Line at 5-497-GCPI-NOW. - Services Needed Following services are medically necessary services: Nursing, Home Health Aide, Physical Therapy, Occupational Therapy - Transfer Medications Prescriptions: amLODIPine [Norvasc] 10 mg PO DAILY #30 tablet Home Medications: Aspirin 81 mg PO HS 11/13/16 [History] Multivitamin [One Daily Multivitamin] 1 each PO DAILY 11/13/16 [History] Sertraline [Zoloft] 50 mg PO DAILY 11/13/16 [History] Atorvastatin Calcium [Lipitor] 20 mg PO DAILY 04/17/17 [History] Calcium Carb/D3/Magnesium/Zinc [Arthur Mag Zinc-D Tablet] 1 tab PO DAILY 08/08/17 [History] Cholecalciferol (D-3) [Vitamin D] 1,000 unit PO DAILY 08/08/17 [History] Pantoprazole Sodium 40 mg PO HS 08/08/17 [History] Sucralfate [Carafate] 1 gm PO TID 12/14/17 [History] Albuterol Sulfate [Ventolin Hfa] 2 puff IH Q6H PRN 03/11/19 [History] Cyclobenzaprine HCl 5 mg PO BID PRN 03/11/19 [History] GlipiZIDE [Glipizide Xl] 5 mg PO DAILY 03/11/19 [History] Levothyroxine [Synthroid] 125 mcg PO 0630 03/11/19 [History] Lisinopril [Zestril] 40 mg PO HS 03/11/19 [History] Mirabegron [Myrbetriq] 50 mg PO DAILY 03/11/19 [History] Zolpidem [Ambien] 10 mg PO HS 04/03/19 [History] amLODIPine [Norvasc] 10 mg PO DAILY #30 tablet 04/09/19 [Rx] Allergies/Adverse Reactions: Allergy/AdvReac Type Severity Reaction Status Date / Time ayana flavor Allergy Swelling Verified 04/02/19 12:19 of Lip/Tongue/Throat Sulfa (Sulfonamide AdvReac Unknown See Verified 04/02/19 12:19 Antibiotics) Comments Certification: Further, I certify that my clinical findings support that this patient is homebound (i.e. absences from home require considerable and taxing effort and are for medical reasons or muslim services or infrequently or short duration when for other reasons) because: Homebound Reason: Patient requires assistance of a person or device to safely leave home Attestation: My signature below is to certify that this patient is under my care and that I, or nurse practitioner, or a physician's oral surgery assistant working with me, has a [id number] encounter with this patient.
[2019-04-16 10:17] LABS: Antiphospholipid IgG High Spec 9 GPL (0-14); Antiphospholipid IgM High Spec 8 MPL (0-14)
== END 2019-04-09 19:03 | disposition home or self-care (01) | DRG 682 ==
LOC: EMEROOARM 12:14 → 2NNU 16:44 → ICNU 17:26 → SUATTDRO 19:17 → ICNU 20:45 → 2NENU 04-04 00:16
PROVIDERS: ADMIT Internal Medicine Nephrology; ATTEND Student in an Organized Health Care Education/Training Program